=== PATIENT | female | born 1940 | race Caucasian/White ===

== ENCOUNTER 2020-05-30 21:04 | Inpatient (IN) | payer OTHER, SELFPAY ==
[~2020-05-30] VITALS: Ht 160 cm; Wt 54.9 kg
--- NOTE | 2020-05-30 21:05 | NUR ---
PT NOLA MONGE. TAKEN TO BED 12
[2020-05-30 21:06] VITALS: BP 108/50
[2020-05-30] MEDS ORDERED: EPOETIN ALFA 2,000 UNITS/ML VIAL SUBQ ONE (21:25)
--- NOTE | 2020-05-30 21:30 | NUR ---
PATIENT BIBA C/O "LOW HGB", PER PATIENT SHE C/O "DIZZINESS" AND "I CANT HAVE A BLOOD TRANSFUSION". SEE COMPLETE ASSESSMENT FOR FURTHER DETAILS. MED HX: STROKE, DM TYPE 2, CIRRHOSIS ALLERGIES: PENICILLINS
--- NOTE | 2020-05-30 21:45 | NUR ---
EKG PERFORMED AT BEDSIDE. EKG READS SINUS RHYTHM @ 61
[2020-05-30 22:00] LABS: BASOPHILS # (AUTO) 0.1 K/uL (0.00-0.22); EOSINOPHILS # (AUTO) 0.4 K/uL (0-0.4); EOSINOPHILS % (AUTO) 6.4 % (0.0-4.0); LYMPHOCYTES # (AUTO) 0.8 K/uL (2.5-16.5); LYMPHOCYTES % (AUTO) 14.6 % (20.5-51.1); MEAN CORPUSCULAR HEMOGLOBIN 29 pg (27-31); MEAN CORPUSCULAR HGB CONC 33 g/dL (33-37); MEAN CORPUSCULAR VOLUME 88.2 fL (80-94); MONOCYTES # (AUTO) 0.5 K/uL (0.8-1.0); MONOCYTES % (AUTO) 8.6 % (1.7-9.3); NEUTROPHILS # (AUTO) 3.8 K/uL (1.8-7.7); NEUTROPHILS % (AUTO) 69.4 % (42.2-75.2); PLATELET COUNT (AUTO) 256 K/uL (140-450); RED BLOOD CELL COUNT(AUTO) 2.19 MIL/uL (4.20-5.40); RED CELL DISTRIBUTION WIDTH 18.8 % (11.6-13.7); WHITE BLOOD COUNT (AUTO) 5.5 K/uL (4.8-10.8)
[2020-05-30 22:02] LABS: HEMOGLOBIN 6.3 g/dL (12.0-16.0)
[2020-05-30 22:03] LABS: HEMATOCRIT 19.3 % (36-48)
[2020-05-30 22:14] LABS: ANION GAP 10.8 (8-16); CARBON DIOXIDE 26.3 mmol/L (21-32); CHLORIDE 100 mmol/L (98-107); GLUCOSE 246 mg/dL (74-106); POTASSIUM 5.1 mmol/L (3.5-5.1); SODIUM SERUM 132 mmol/L (136-145)
[2020-05-30 22:21] LABS: CREATININE 4.8 mg/dL (0.6-1.3); UREA NITROGEN, BLOOD 100 mg/dL (7-18)
[2020-05-30] MEDS ORDERED: NACL 0.9% 1,000 ML IV ONE (22:25)
--- NOTE | 2020-05-30 22:31 | NUR ---
[place] tavares in [facility] - 05/30/20 at 2231 by ELBERT [facility] AT BEDSIDE
[2020-05-30] MEDS ORDERED: traMADol 50 MG TAB PO ONE (23:00)
--- NOTE | 2020-05-30 23:35 | NUR ---
PATIENT REMAINS LYING DOWN IN BED, COMFORTABLY, STATES "MY PAIN FEELS BETTER", BED LOCKED AND IN LOWEST POSITION, BED RAILS UP.
--- NOTE | 2020-05-31 00:13 | NUR ---
PERFORMED PERINEAL CARE FOR PATIENT, SKIN IS CLEAR AND DRY, NO NOTED WOUNDS. PATIENT REPOSITIONED FOR COMFORT.
[2020-05-31] MEDS ORDERED: INSU100S22 SUBQ (00:37)
[2020-05-31] MEDS ORDERED: CARV25TA PO (00:37)
[2020-05-31] MEDS ORDERED: AMLO5TAB PO (00:37)
[2020-05-31] MEDS ORDERED: GLIP5TER PO (00:37)
[2020-05-31] MEDS ORDERED: SYN.05 PO (00:37)
[2020-05-31] MEDS ORDERED: RIVA20TA PO (00:37)
[2020-05-31] MEDS ORDERED: ALEN70TA85 PO (00:37)
[2020-05-31] MEDS ORDERED: HYDR-3233 PO (00:37)
[2020-05-31] MEDS ORDERED: VITB12 PO (00:37)
[2020-05-31] MEDS ORDERED: MAGN400S60 PO (00:37)
[2020-05-31] MEDS ORDERED: ATOR40TA PO (00:37)
[2020-05-31] MEDS ORDERED: FURO-570 PO (00:37)
[2020-05-31] MEDS ORDERED: LORA10TA19 PO (00:37)
[2020-05-31] MEDS ORDERED: BISA-213 RC (00:37)
--- NOTE | 2020-05-31 01:06 | NUR ---
Patient will be admitted to care of MD MORA. Admited to TELEMETRY. Will go to room 120-A. Belongings list completed. Report to FRANCISCO SHEPPARD.
[2020-05-31 01:20] VITALS: BP 131/58
--- NOTE | 2020-05-31 01:20 | NUR ---
RECEIVED PATIENT FROM ER. PT BROUGHT IN [employer]IA [employer]. PT IS AAOX4. RESPIRATIONS ARE EQUAL AND UNLABORED ON ROOM AIR. LUNG SOUNDS ARE CLEAR. SKIN IS INTACT. C/C ABN LAB HGB 6.3 PT REFUSED BLOOD TRANSFUSION D/T GNOSTICISM PT IS JEHOVAH WITNESS. PT STATES HX BLOOD TRANSFUSION IN 1951 AND DX HEP C IN D/T BLOOD TRANSFUSION. HX CIRRHOSIS AND CKD. PT IS FROM [place] IN [facility]. IV ON LAC 20G INFUSING NS @ 100ML/H PER. VS: 131/58 HR 69 98% RA 97.9 RR 16. MRSA SWAB OBTAINED. ORIENTED PT TO ROOM, STAFF AND CALL LIGHT. POC DISCUSSED WITH PT. PT ON CLEAR LIQUID DIET. NO CONSULT MD WILL ASSESS PT IN PERSON THIS MORNING. PT VERBALIZED UNDERSTANDING. CALL LIGHT IS WITHIN REACH. WILL CONTINUE TO MONITOR.
[2020-05-31] MEDS: HYDROcodone/APAP 5/325 MG 1 TAB TAB PO PRN ×3 (01:34→20:26)
--- NOTE | 2020-05-31 01:34 | NUR ---
PRN NORCO GIVEN FOR HIP PAIN. PT TOLERATED WELL. ICE CHIPS AT BEDSIDE. CALL LIGHT IS WITHIN REACH
[2020-05-31] MEDS: NACL 0.9% 1,000 ML IV SCH ×2 (02:19→11:37)
[2020-05-31 04:00] VITALS: BP 145/53
--- NOTE | 2020-05-31 04:00 | NUR ---
VITAL SIGNS ARE WITHIN NORMAL LIMITS. ALL NEEDS MET. CALL LIGHT IS WITHIN REACH. WILL CONTINUE TO MONITOR.
--- NOTE | 2020-05-31 07:25 | NUR ---
GAVE BEDSIDE REPORT TO DAY RN. PT ENDORSED IN STABLE CONDITION.
--- NOTE | 2020-05-31 07:26 | NUR ---
RECEIVED REPORT FROM EDUCATIONAL ADVISER NURSE. PATIENT IN STABLE CONDITION. SAFETY MEASURES IN PLACE, CALL LIGHT WITHIN REACH. WILL CONTINUE TO MONITOR.
[2020-05-31 08:00] VITALS: BP 132/42
--- NOTE | 2020-05-31 08:36 | NUR ---
PATIENT HAS BEEN SCREENED AND CATEGORIZED MODERATE NUTRITION RISK. PATIENT WILL BE SEEN WITHIN 3-5 DAYS OF ADMISSION. 06/02/20 06/04/[address]
[2020-05-31] MEDS: PANTOPRAZOLE 40 MG INJ VIAL IVP SCH (09:05)
--- NOTE | 2020-05-31 09:06 | NUR ---
SCHEDULED MEDICATIONS DUE GIVEN. WILL CONTINUE TO MONITOR.
--- NOTE | 2020-05-31 11:02 | NUR ---
SOCIAL WORK NOTE: Patient's Orientation Unable To Assess Information Provided By KEE MONTES DE OCA/DEMETRIA LOPEZ - SON Comments SW WAS UNABLE TO MEET PATIENT AT BEDSIDE. SW LEFT FOR DEMETRIA LOPEZ. SW COMPLETED ASSESSMENT WITH PATIENT'S SON, KEE MONTES DE OCA. DEMETRIA CHILDERS RETURNED PHONE CALL AND SW VERIFIED INFORMATION. Oil Transport Driver, Realtionship and Phone Number DEMETRIA LOPEZ SON [phone] KEE MONTES DE OCA SON [phone] Healthcare Power of Client Leader No Does Patient Have a POLST No Identifying Problems No Social Work Triggers Is A Social Work Consult Needed No Mandate Report Filed No Explanation Of Identifying Problems PATIENT IS AN 79-YEAR-OLD FEMALE ADMITTED FOR ANEMIA. PATIENT HAS PMHX OF CEREBROVASCULAR ACCIDE, DIABETES, AND RENAL DISEASE. PER SON, PATIENT IS A SKILLED PATIENT AT [facility], BUT LIVES WITH HER SON DEMETRIA LOPEZ @ [address], [place], [id number]. Admitted From Home Prison Facility [facility] - [phone] Pre-Admission Level Of Functioning Status Independent With DME Level Of Functioning Comment AT BASELINE, SON STATED THAT PATIENT IS INDEPENDENT WITH ALL ADLS WITH USE OF WALKER. Prior Resources/Services Used In Last 12 Months SNF Rehab/Skilled Prior DME Walker Dialysis Comments N/A Living Situation Lives With Family House Patient Had Caregiver No Home Support No Caregiver Issues Financial Issues No Known Financial Issue Referral To The Financial Counselor Needed No Factors/Needs No D/C Needs Identified Pt/Rep Participated In Discharge Plan Yes Patient/Family Agress With Discharge Plan Yes Discharge Plan Comments TENTATIVE DISCHARGE PLAN IS FOR PATIENT [facility] DC Plan Status Initiated
--- NOTE | 2020-05-31 11:38 | NUR ---
PATIENT COMPLAINS OF GENERALIZED PAIN AFTER CHANGING PATIENT. NORCO GIVEN AT THIS TIME. WILL CONTINUE TO MONITOR.
[2020-05-31 12:00] VITALS: BP 145/61
[2020-05-31 16:00] VITALS: BP 165/67
--- NOTE | 2020-05-31 16:24 | NUR ---
SPOKE TO DR. MORA AND SAID THAT REPEAT CBC WAS ORDERED FOR THE PT AND IF THE HGB IS 8 AND ABOVE MAY BE DISCHARGED BACK TO [facility] BUT IF THE HGB IS BELOW 8 THEN WILL BE GIVEN ANOTHER DOSE OF EPOGEN, SILVER BOB WAS INFORMED.
[2020-05-31 16:56] LABS: BASOPHILS % (AUTO) 0.4 % (0.0-2.0); EOSINOPHILS # (AUTO) 0.3 K/uL (0-0.4); EOSINOPHILS % (AUTO) 6.4 % (0.0-4.0); HEMATOCRIT 21.5 % (36-48); LYMPHOCYTES # (AUTO) 0.5 K/uL (2.5-16.5); LYMPHOCYTES % (AUTO) 12.1 % (20.5-51.1); MEAN CORPUSCULAR HEMOGLOBIN 30 pg (27-31); MEAN CORPUSCULAR HGB CONC 32 g/dL (33-37); MEAN CORPUSCULAR VOLUME 94.1 fL (80-94); MONOCYTES # (AUTO) 0.4 K/uL (0.8-1.0); MONOCYTES % (AUTO) 8.6 % (1.7-9.3); NEUTROPHILS # (AUTO) 3.2 K/uL (1.8-7.7); NEUTROPHILS % (AUTO) 72.5 % (42.2-75.2); PLATELET COUNT (AUTO) 272 K/uL (140-450); RED BLOOD CELL COUNT(AUTO) 2.28 MIL/uL (4.20-5.40); RED CELL DISTRIBUTION WIDTH 18.8 % (11.6-13.7); WHITE BLOOD COUNT (AUTO) 4.5 K/uL (4.8-10.8)
[2020-05-31 17:05] LABS: HEMOGLOBIN 6.8 g/dL (12.0-16.0)
[2020-05-31 17:12] LABS: ANION GAP 12.5 (8-16); CARBON DIOXIDE 22.6 mmol/L (21-32); CHLORIDE 96 mmol/L (98-107); SODIUM SERUM 125 mmol/L (136-145)
--- NOTE | 2020-05-31 17:30 | NUR ---
GLUCOSE: 800 FROM BLOOD DRAW AND H&H 6.[address] JAIN WHO IS EDITOR [place] FOR DR. MORA. AWAITING FOR HIS CALL.
[2020-05-31 17:58] LABS: CREATININE 4.1 mg/dL (0.6-1.3); GLUCOSE 807 mg/dL (74-106); POTASSIUM 6.1 mmol/L (3.5-5.1); UREA NITROGEN, BLOOD 89 mg/dL (7-18)
--- NOTE | 2020-05-31 18:15 | NUR ---
DR. JAIN CALLED AND ORDERED RECEIVED. PER DR. JAIN, GIVE 15 UNITS HUMALOG AT THIS TIME AND CONTINUE HOME MEDICATION OF LANTUS 20 UNITS DAILY. WILL CONTINUE TO MONITOR.
[2020-05-31] MEDS ORDERED: DEXTROSE 50% 50 ML SYR IVP PRN (18:40)
[2020-05-31] MEDS ORDERED: MAGNESIUM HYDROXIDE 2400 MG/30 ML UDC PO SCH (18:40)
[2020-05-31] MEDS: INSULIN LISPRO SLIDING SCALE 100 UNITS/ML VIAL SUBQ PRN (18:59)
--- NOTE | 2020-05-31 19:40 | NUR ---
GAVE REPORT TO ACADEMIC AFFAIRS COORDINATOR NURSE FOR CONTINUITY OF CARE. PATIENT IN STABLE CONDITION.
[2020-05-31] MEDS ORDERED: SODIUM POLYSTYRENE 15 GM/60 ML UDBTL PR SCH (19:45)
[2020-05-31 20:00] VITALS: BP 135/93
--- NOTE | 2020-05-31 20:00 | NUR ---
RECEIVED PATIENT DURING ROUNDS EARLIER A/A/OX4, LAYING IN BED WATCHING TV. PATIENT VERBALIZED THAT HE HAS PAIN, STATED "EVERYWHERE". WILL MEDICATE ORDERED AND IF VS IS OK. OTHERWISE PT IS NOT IN ANY DISTRESS AND NO OTHER COMPLAIN. SINUS RHYTHM ON CITY SANITARIAN, HR-64. FALL PRECAUTION IMPLEMENTED. INSTRUCTED NOT TO GET OUT OF BED WITHOUT ASSISTANCE. PT VERBALIZED UNDERSTANDING WITH THE POC. CALL LIGHT WITHIN REACH. WILL CONTINUE POC AND MONITORING.
[2020-05-31] MEDS ORDERED: INSULIN LISPRO 100 UNITS/ML VIAL SUBQ SCH (20:10)
[2020-05-31] MEDS: BLOOD GLUCOSE MONITORING 1 DEV DEV FS SCH (20:25)
[2020-05-31] MEDS: carvediloL 12.5 MG TAB PO SCH (20:26)
[2020-05-31] MEDS ORDERED: NON-FORMULARY ITEM (Insulin Glargine,Hum.rec.anlog (Lantus Solostar) 20 UNIT) SUBQ SCH (21:00)
[2020-05-31] MEDS ORDERED: INSULIN LANTUS 100 UNITS/ML 10 ML VIAL SUBQ SCH ×2 (21:00)
[2020-05-31] MEDS: INSULIN LANTUS 100 UNITS/ML 10 ML VIAL SUBQ SCH (21:08)
--- NOTE | 2020-05-31 22:00 | NUR ---
ADMINISTERED SCHEDULED MEDICATIONS EARLIER ORDERED AND PT TOLERATED IT WELL. NO ADVERSE DRUG REACTIONS NOTED.
[2020-06-01] VITALS: BP 122/52
--- NOTE | 2020-06-01 | NUR ---
PATIENT VITALS SIGNS STABLE, SATING 97% ON RA. NO SIGN AND SYMPTOMS OF DISTRESS NOTED AND NO COMPLAIN AT THIS TIME. SR ON FAMILY INDEPENDENCE CASE MANAGER, HR-61.
--- NOTE | 2020-06-01 00:30 | NUR ---
PATIENT WAS REQUESTING FOR ORANGE JUICE AND STATED THAT SHE FEELS LIKE HER BLOOD SUGAR DROPPED DOWN. CHECKED THE PATIENT BLOOD SUGAR AND ITS 138. PT MADE AWARE THAT HER SUGAR HAS BEEN RUNNING HIGH 600 AND EDUCATED THAT THE ORANGE JUICE WILL MAKE IT HIGHER AGAIN. PT VERBALIZED UNDERSTANDING.
[2020-06-01] MEDS: NACL 0.9% 1,000 ML IV SCH ×2 (00:33→05:52)
--- NOTE | 2020-06-01 02:00 | NUR ---
PATIENT ASLEEP AT THIS TIME. NO SIGN AND SYMPTOMS OF DISTRESS NOTED AT THIS TIME. VISIBLE CHEST RISE AND FALL NOTED. SAFETY MEASURES IN PLACED.
[2020-06-01 04:00] VITALS: BP 179/71
--- NOTE | 2020-06-01 04:00 | NUR ---
PT BP HIGH 179/71, HR-70. PT DENIES ANY PAIN AT THIS TIME. WILL ENDORSE TO AM RN. PATIENT HAS 3 BP MEDS IN AM.
[2020-06-01] MEDS: LEVOTHYROXINE 0.05 MG TAB PO SCH (05:36)
[2020-06-01] MEDS: BLOOD GLUCOSE MONITORING 1 DEV DEV FS SCH ×4 (05:37→21:17)
[2020-06-01 05:42] LABS: BASOPHILS % (AUTO) 0.7 % (0.0-2.0); EOSINOPHILS # (AUTO) 0.5 K/uL (0-0.4); EOSINOPHILS % (AUTO) 9.2 % (0.0-4.0); LYMPHOCYTES # (AUTO) 0.9 K/uL (2.5-16.5); LYMPHOCYTES % (AUTO) 15.9 % (20.5-51.1); MEAN CORPUSCULAR HEMOGLOBIN 29 pg (27-31); MEAN CORPUSCULAR HGB CONC 33 g/dL (33-37); MEAN CORPUSCULAR VOLUME 88.4 fL (80-94); MONOCYTES # (AUTO) 0.5 K/uL (0.8-1.0); MONOCYTES % (AUTO) 9.9 % (1.7-9.3); NEUTROPHILS # (AUTO) 3.5 K/uL (1.8-7.7); NEUTROPHILS % (AUTO) 64.3 % (42.2-75.2); PLATELET COUNT (AUTO) 257 K/uL (140-450); RED BLOOD CELL COUNT(AUTO) 1.88 MIL/uL (4.20-5.40); RED CELL DISTRIBUTION WIDTH 18.3 % (11.6-13.7); WHITE BLOOD COUNT (AUTO) 5.4 K/uL (4.8-10.8)
[2020-06-01 06:01] LABS: ALBUMIN 2.2 g/dL (3.4-5.0); ANION GAP 11.7 (8-16); ASPARTATE AMINOTRANSFERASE 10 U/L (15-37); CARBON DIOXIDE 24.7 mmol/L (21-32); CHLORIDE 105 mmol/L (98-107); CREATININE 3.5 mg/dL (0.6-1.3); GLUCOSE 113 mg/dL (74-106); MAGNESIUM 3.1 mg/dL (1.8-2.4); POTASSIUM 4.4 mmol/L (3.5-5.1); SODIUM SERUM 137 mmol/L (136-145); TOTAL BILIRUBIN 0.1 mg/dL (0.0-1.0)
[2020-06-01 06:04] LABS: UREA NITROGEN, BLOOD 80 mg/dL (7-18)
--- NOTE | 2020-06-01 06:25 | NUR ---
PATIENT STABLE. NO ACUTE EVENT THROUGHOUT THE NIGHT. NO COMPLAIN AT THIS TIME. MEDICATED THE PT FOR PAIN EARLIER. ALL NEEDS ATTENDED. CALL LIGHT WITHIN REACH. WILL ENDORSE THE PT TO THE ONCOMING RN FOR CONTINUITY OF CARE.
[2020-06-01 06:31] LABS: HEMATOCRIT 16.6 % (36-48); HEMOGLOBIN 5.4 g/dL (12.0-16.0)
--- NOTE | 2020-06-01 06:36 | NUR ---
EFRAÍN FROM THE LAB CALLED REGARDING THE PT HGB- 5.4 AND HCT-16.[address] JAIN PRESS LOADER FOR DR MORA AND MADE AWARE OF THE CRITICAL RESULT. AWAITING FOR MD TO CALL OR TEXT BACK. WILL ENDORSE TO AM SILVER.
--- NOTE | 2020-06-01 07:20 | NUR ---
RECEIVED BEDSIDE REPORT FROM NIGHTSHIFT NURSE. PT RESTING IN BED. ABLE TO MAKE NEEDS KNOWN. RESPIRATIONS EVEN AND UNLABORED WITH NO SOB OR RESPIRATORY DISTRESS. SKIN WARM AND DRY TO TOUCH. IV SITE IN LAC 20G IS CLEAN, DRY, AND INTACT. SAFETY MEASURES IN PLACE. WILL CONTINUE TO MONITOR
[2020-06-01 08:00] VITALS: BP 148/99
[2020-06-01] MEDS ORDERED: LORATADINE 10 MG TAB PO SCH (09:00)
[2020-06-01] MEDS: hydrALAZINE 25 MG TAB PO SCH ×3 (09:07→17:09)
[2020-06-01] MEDS: PANTOPRAZOLE 40 MG INJ VIAL IVP SCH (09:07)
[2020-06-01] MEDS: carvediloL 12.5 MG TAB PO SCH ×2 (09:08→21:00)
[2020-06-01] MEDS: amLODIPine 5 MG TAB PO SCH (09:08)
--- NOTE | 2020-06-01 09:16 | NUR ---
ADMINISTERED SCHED MED PRESCRIBED PER MD ORDER. PT TOLERATED WELL. MEDICATION EDUCATION PERFORMED. PT VERBALIZED UNDERSTANDING. SAFETY MEASURES IN PLACE. WILL CONTINUE TO MONITOR
[2020-06-01] MEDS ORDERED: IRON SUCROSE COMPLEX 100 MG/5 ML VIAL IVP ONE (10:00)
--- NOTE | 2020-06-01 10:41 | NUR ---
DC PLANNIN YRS OLD FEMALE PATIENT WAS ADMITTED FROM [facility] WITH A DX OF ANEMIA. PT HAS A HX OF ANEMIA JEHOVAH WITNESS, DOES NOT WANT ANY BLOOD TRANSFUSION AND HEMORRHOIDS.H/HON ADMISSION 6.5/21.5. RECEIVED EPOGEN 2000 UNITS SUBQ. STARTED ON FERRLECIT IV AND PROCRIT AND CONTINUED HOME MEDS CONSULTED WITH GI DR LEONE. DC PLAN TO GO BACK TO [facility] WHEN STABLE. DISCUSSED THE IN PATIENT STATUS WITH DR MORA AND AGREED TO CHANGE IT TO INPATIENT STATUS. CM TO FOLLOW Addendum: 06/04/20 at 1605 by Amanda Montez RN DC PLANNING: PT'S H/H TODAY 5.5/16.7 PT IS JEHOVAH WITNESS ON FERRLECIT IV AND EPOGEN SUB Q ,SUPPLY CHAIN PROGRAM MANAGER SEEN PT HELD THE ANTICOAGULANT THERAPY. DISCUSSED WITH THE HIGH RISK OF HAVING LOW H/H BUT PT CONFIRMED THAT NOT TAKING ANY TRANSFUSION PT IS DNR/DNI. CM TO FOLLOW Addendum: 06/05/20 at 1026 by Amanda Montez RN DC PLANNING DR MEEK WAS DISCUSSING THE TREATMENT WITH PT'S SON NAME KAL Chandler [phone] EXPLAINING AND ANSWERING ALL THE QUESTIONS AND CONCERNS. DR MEEK DISCUSSED THE CODE STATUS WITH THE PATIENT AND CODE STATUS CHANGED TO DNR. CM TO FOLLOW Addendum: 06/05/20 at 1048 by Devora Davila CM DC EDITOR & CO FOUNDER: FAXED ORDER FOR EPOGEN THERAPY TO [facility]. WILL FOLLOW UP. Addendum: 06/06/20 at 1238 by Amanda Montez RN DC PLANNING: RECEIVED AN ORDER FOR [facility] EVAL CALLED [facility] SPOKE WITH CODY CASTILLO AT [phone] DISCUSSED THE TRANSFER PER CODY PT IS IN THE HOSPITAL FOR 4 DAYS ONLY SHE WILL DISCUSS IT WITH MEDICAL ADMINISTRATOR AND CALL BACK. Addendum: 06/07/20 at 1554 by Devora Davila CM JOSE LUIS LAWTONNER: PATIENT WILL DC BACK TO [facility] TODAY. FAXED CLINICALS WILL FOLLOW UP Addendum: 06/07/20 at 1607 by Devora Davila CM DC CAR: JONATHAN NICKERSON RECEIVED A PHONE CALL FROM PATIENTS SON KEE STATING THAT HE DOES NOT WANT HIS MOTHER RETURNING TO [facility]. SPOKE TO PAUL FROM [facility] SHE WAS ALREADY AWARE. SPOKE TO CODY SHE IS GOING TO CONTACT ME BACK TO SEE IF SHE HAS AN AVAILABLE BED AT [facility] Addendum: 06/07/20 at 1626 by Devora Davila CM JOSE LUIS YOON: CODY CAN ACCOMMODATE PATIENT AT [facility] HOWEVER SHE NEEDS AUTH FROM [facility]. TRIED CONTACTING JONATHAN CODY FROM [facility] [phone] BUT NO ANSWER Addendum: 06/07/20 at 1651 by Devora Davila CM JOSE LUIS YOON: RECEIVED A PHONE CALL FROM CODY AT [facility]. AFTER HER DON REVIEWED CLINICALS THEY ARE NOT ABLE TO ACCEPT PATIENT. Addendum: 06/08/20 at 1150 by Amanda Montez RN DC PLANNING: SPOKE WITH DR CHAWLA SOLID WASTE ANALYST REGARDING PT'S STATUS ,HE SAID HE SPOKE WITH THE PATIENT REGARDING WORSENING KIDNEY FUNCTION AND ASKED HER IF SHE WANTED DIALYSIS AND PT TOLD HIM "YES I WANT DIALYSIS" DR ORTA AND DR MEEK DISCUSSED PLAN OF CARE INCREASE EPOGEN TO 20,000 UNIT SUBQ EVERY WEEK AND IRON IV 200MG DAILY, AND WILL CHECK THE H/H TOMORROW. DR MEEK DISCUSSED THE HOSPICE WITH THE PATIENT, PT STATED WANTED TO TALK TO SON. I RECEIVED A CALL FROM SON KAL [phone] AND EXPLAIN 'S PLAN AND A DISCUSSION FOR HOSPICE , PER TRACI STATED LET'S SEE WITH THE EPOGEN AND IRON LEVEL OVER THE WEEKEND AND WILL DISCUSS IT WITH OTHER FAMILY AND BY THURSDAY WILL DECIDE FOR HOSPICE. IF PT AND FAMILY AGREED ON HOSPICE HE PREFERRED HER TO GO HOME WITH HOSPICE TO HIS BROTHER'S HOUSE AT [facility]. CM TO FOLLOW Addendum: 06/11/20 at 1243 by Amanda Montez RN DC PLANNING: CALLED PT'S SON KEE DISCUSSED THE DC PLAN AND TRANSFERRED THE CALL TO DR STRATTON, PER DR VIRAL SWEET STATED WANTED TO TAKE PATIENT TO OTHER HOSPITAL. PER HE WANTED TO DISCUSS WITH DR MANN IF IT IS SAFE TO DC PATIENT WITH EPOGEN SUB Q EVERY WEEK AND H/H IS 5.10/24 DR STRATTON WILL CALL BACK AFTER HE DISCUSS WITH DR MANN. CM TO FOLLOW Addendum: 06/11/20 at 1355 by Amanda oMntez RN DC PLANNING: RECEIVED A CALL FROM CODY MURRAY EXPLAINED THE SITUATION AND PER CODY WILL DISCUSS IT WITH HER MEDICAL ADMINISTRATOR AND DR KHAN WELL. CM TO FOLLOW. Addendum: 06/12/20 at 1114 by Devora Davila CM DC EDITOR & CO FOUNDER: SPOKE TO JONATHAN MON AT [phone] REGARDING EPOGEN THERAPY. SHE STATED THAT SHE HAS TO CHECK FIRST TO SEE IF THEY ARE DELEGATED TO PROVIDE AUTH. SHE ALSO WILL HAVE TO GET AUTH FROM HER MEDICAL ADMINISTRATOR. IF THEY ARE DELEGATED SHE WILL FAX OVER A COPY OF THE AUTH. Addendum: 06/12/20 at 1408 by Amanda Montez RN DC PLANNING: DR KHAN, PT'S SON KEE AND A FAMILY FRIEND FROM THE [employer] W[employer]NESS NAME LINO MCMANUSANTES HAD A LONG DISCUSSION REGARDING PT CARE AND DC EDITOR & CO FOUNDER DR KHAN EXPLAINED AND ANSWERED ALL THE CONCERNS AND ISSUES OF PT'S CLINICAL STAND POINT. PER LINO HE HAS SOME HOSPICE WHO CAN PROVIDE EPOGEN SUB Q AND WILL CALL WITH THE HOSPICE NUMBER. PER SON KEE SPOKE WITH NEPHROLOGY DR CHAWLA ORDERED 24 HR URINE AND WILL CHECK THE KIDNEY FUNCTION . PER CHANTAL WILL SEE THE SOLID WASTE ANALYST RECOMMENDATION AND ALSO DISCUSS WITH THE REST OF THE FAMILY AND WILL DECIDE. JONATHAN TO FOLLOW Addendum: 06/12/20 at 1431 by Devora Davila CM DC EDITOR & CO FOUNDER: RECEIVED A PHONE CALL FROM JONATHAN MON HER MEDICAL ADMINISTRATOR APPROVED THE EPOGEN THERAPY, HOWEVER THEY NEED AN ORDER WITH THE DOSAGE AND FOR HOW LONG Addendum: 06/13/20 at 1136 by Dveora Davila CM DC EDITOR & CO FOUNDER: FAXED NEW ORDER FOR EPOGEN TO [facility]. WILL FOLLOW UP Addendum: 06/14/20 at 1027 by Amanda Montez RN DC PLANNING: CALLED PT'S SON KEE [phone] DISCUSSED THE DC PLAN AND TODAY'S H/H IS STABLE TO GO TO SNF OR HOME WITH EPOGEN INJECTION 2 X A WEEK. PER KEE HE DOESN'T WANT HOSPICE FOR HIS MOM AND IF THERE IS NEW FACILITY TO ACCEPT HER OK TO BE DISCHARGED TO ANY CLOSER FACILITY. SPOKE WITH CODY AT [facility] UPDATED PT'S CLINICAL AND REQUESTED TO HAVE A PHYSICAL THERAPY EVALUATION AND PT CAN GO TO SNF FOR SKILLS. FAXED TO [facility] . CALLED [facility] SPOKE WITH [facility] AND [facility] IS REQUESTING AUTHORIZATION. NOTIFIED DR KHAN . DC PLAN AWAITING FOR PT EVAL AND POSSIBLE DC TO [facility]. CM TO FOLLOW Addendum: 06/14/20 at 1223 by Devora Davila CM DC EDITOR & CO FOUNDER: JONATHAN SPOKE TO PATIENTS SON KEE REGARDING PLANS OF DC TODAY. FAMILY IS AGREEABLE TO PATIENT GOING TO [facility]. FAXED PACKET TO [facility], PER RITCHIE THEY ARE ABLE TO ACCEPT PATIENT ROOM [address]-B UNDER DR[address] SEWELL. Addendum: 06/14/20 at 1005 by Devora Davila CM DC EDITOR & CO FOUNDER: SPOKE TO SON KEE TO NOTIFY HIM THAT [facility] IS ABLE TO ACCEPT AND PLAN OF DC IS FOR TODAY. HE IS AGREEABLE. Addendum: 06/14/20 at 1210 by Devora Davila CM JOSE LUIS YOON: PATIENT WILL GO TO ROOM 46-[address] UNDER DR[address] SEWELL. SPOKE TO JONATHAN ROSS AT [facility] SHE PROVIDED AUTH FOR TRANSPORTATION [id number] AND AUTH FOR SNF [id number]. SHE ALSO PROVIDED AUTH FOR NEPHRO FOLLOW UP WITH GEOVANNA LALA AUTH [id number]. CALLED OFFICE TO SCHEDULE APPOINTMENT THEY NEED HARD COPY OF AUTH FIRST BEFORE THEY ARE ABLE TO SCHEDULE Addendum: 06/14/20 at 1251 by Devora Davila CM JOSE LUIS YOON ARRANGED TRANSPORTATION WITH [employer] [phone] CASING FINISHER AND STUFFER TIME IS 3:00 PM. NOTIFIED SILVER RASHID AND CONTACTED PATIENTS JADEN AVILES.
[2020-06-01] MEDS: MORPHINE SULFATE 2 MG/ML SYR IVP PRN (10:45)
--- NOTE | 2020-06-01 10:45 | NUR ---
PT COMPLAINED OF SEVERE PAIN. PRN PAIN MEDICATION ADMINISTERED PRESCRIBED PER MD ORDER. PT TOLERATED WELL. MEDICATION EDUCATION PERFORMED. PT VERBALIZED UNDERSTANDING. SAFETY MEASURES IN PLACE. WILL CONTINUE TO MONITOR
[2020-06-01] MEDS ORDERED: EPOETIN ALFA 2,000 UNITS/ML VIAL IV SCH (11:00)
--- NOTE | 2020-06-01 11:30 | NUR ---
PT BLOOG SUGAR IS 361. PRN INSULIN TO BE ADMINISTERED PRESCRIBED PER MD ORDER. PT TOLERATED WELL. WILL CONTINUE TO MONITOR
[2020-06-01 12:00] VITALS: BP 107/73
[2020-06-01] MEDS ORDERED: IRON SUCROSE COMPLEX 200 MG in NACL 0.9% 100 ML IV SCH (12:00)
[2020-06-01] MEDS: INSULIN LISPRO SLIDING SCALE 100 UNITS/ML VIAL SUBQ PRN (12:19)
--- NOTE | 2020-06-01 13:24 | NUR ---
ADMINISTERED SCHED MED PRESCRIBED PER MD ORDER. PT TOLERATED WELL. MEDICATION EDUCATION PERFORMED. PT VERBALIZED UNDERSTANDING. SAFETY MEASURES IN PLACE. WILL CONTINUE TO MONITOR
[2020-06-01] MEDS ORDERED: fentaNYL citrate 0.05 MG/ML VIAL ONE (15:41)
[2020-06-01] MEDS ORDERED: diphenhydrAMINE 50 MG/ML VIAL ONE (15:42)
[2020-06-01] MEDS ORDERED: MIDAZOLAM 5 MG/5 ML VIAL ONE (15:42)
--- NOTE | 2020-06-01 15:45 | NUR ---
PT OFF TO OR FOR EGD. REPORT GIVEN AT BEDSIDE. WILL CONTINUE TO MONITOR
[2020-06-01 16:00] VITALS: BP 126/90
[2020-06-01] MEDS: BENZOCAINE 20% 57 GM CAN MC ONE ×2 (16:02→16:55)
--- NOTE | 2020-06-01 16:15 | NUR ---
PT RETURNED BACK FROM OR. PT STABLE. SAFETY MEASURES IN PLACE. WILL CONTINUE TO MONITOR
--- NOTE | 2020-06-01 16:30 | NUR ---
PT BLOOD SUGAR IS 84. NO INSULIN NEEDED AT THIS TIME. WILL CONTINUE TO MONITOR
[2020-06-01] MEDS ORDERED: fentaNYL citrate 0.05 MG/ML VIAL IVP ONE (16:50)
[2020-06-01] MEDS ORDERED: MIDAZOLAM 2 MG/2 ML VIAL IVP ONE (16:50)
[2020-06-01] MEDS ORDERED: PANTOPRAZOLE 40 MG INJ VIAL IVP SCH ×2 (16:52→21:00)
[2020-06-01] MEDS ORDERED: BENZOCAINE 20% 57 GM CAN MC ONE (16:55)
[2020-06-01] MEDS: SENNA 8.6 MG TAB PO SCH (17:03)
[2020-06-01] MEDS: ERYTHROMYCIN 250 MG TABEC PO SCH (17:03)
[2020-06-01] MEDS: SUCRALFATE 1 GM TAB PO SCH ×2 (17:03→21:17)
[2020-06-01] MEDS: POLYETHYLENE GLYCOL 17 GM/PKT PO SCH (17:11)
[2020-06-01] MEDS: LACTULOSE 20 GM/30 ML UDC PO SCH ×2 (17:12→21:18)
--- NOTE | 2020-06-01 17:15 | NUR ---
ADMINISTERED SCHED MED PRESCRIBED PER MD ORDER. PT TOLERATED WELL. MEDICATION EDUCATION PERFORMED. PT VERBALIZED UNDERSTANDING. SAFETY MEASURES IN PLACE. WILL CONTINUE TO MONITOR
--- NOTE | 2020-06-01 18:20 | NUR ---
PT RESTING IN BED TALKING ON THE PHONE WITH FAMILY. ABLE TO MAKE NEEDS KNOWN. RESPIRATIONS EVEN AND UNLABORED WITH NO SOB OR RESPIRATORY DISTRESS. SKIN WARM AND DRY TO TOUCH. SAFETY MEASURES IN PLACE. WILL CONTINUE TO MONITOR
--- NOTE | 2020-06-01 19:35 | NUR ---
ENDORSED AT BEDSIDE TO NIGHTSHIFT NURSE FOR CONTINUITY OF CARE. PT IS STABLE
[2020-06-01 20:00] VITALS: BP 97/52
[2020-06-01] MEDS: INSULIN LANTUS 100 UNITS/ML 10 ML VIAL SUBQ SCH (21:00)
--- NOTE | 2020-06-01 21:30 | NUR ---
COREG TAB . NOT GIVEN DUE TO LOW DIASTOLIC BP . NO COMPLAIN MADE . RESTING ON BED COMFORTABLY . WILL CONT. TO MONITOR .
[2020-06-02] VITALS: BP 90/60
--- NOTE | 2020-06-02 | NUR ---
MADE ROUNDS , NO S/X OF ACUTE DISTRESS NOTED .
--- NOTE | 2020-06-02 02:00 | NUR ---
SLEEPING - PT ON TELE MONITOR - SR . BED ALARM ON . WILL CONT. TO MONITOR
[2020-06-02 04:00] VITALS: BP 95/60
--- NOTE | 2020-06-02 04:00 | NUR ---
MADE ROUNDS , NO S/SX OF ACUTE DISTRESS NOTED AT THIS TIME . WILL CONT. TO MONITOR .
[2020-06-02] MEDS: BLOOD GLUCOSE MONITORING 1 DEV DEV FS SCH ×4 (05:52→20:25)
--- NOTE | 2020-06-02 06:00 | NUR ---
NO COMPLAIN MADE .
[2020-06-02] MEDS: LEVOTHYROXINE 0.05 MG TAB PO SCH (06:58)
--- NOTE | 2020-06-02 07:24 | NUR ---
ENDORSED- PT - STABLE .
--- NOTE | 2020-06-02 07:26 | NUR ---
RECEIVED REPORT FROM NIGHT NURSE PT IS SLEEPING ON NPO EXCEPTS MEDICATIONS, SKIN INTACT, INCONTINENT LATEST BLOOD SUGAR 203 MG/DL, S/P EGD 06/01/20, PT IS JEHOVA AND REFUSED BLOOD TRANSFUSION, FOR COLONOSCOPY TODAY WITH CONSENT, CHEST XRAY NEGATIVE, ABDOMINAL XRAY NEGATIVE. SAFETY MEASURES IN PLACE AND CALL LIGHT WITHIN REACH. WILL CONTINUE TO MONITOR.
[2020-06-02 08:00] VITALS: BP 138/52
[2020-06-02] MEDS ORDERED: PANTOPRAZOLE 40 MG INJ VIAL IVP SCH (09:00)
[2020-06-02] MEDS: hydrALAZINE 25 MG TAB PO SCH ×3 (09:00→17:18)
[2020-06-02] MEDS: SUCRALFATE 1 GM TAB PO SCH ×4 (09:15→20:32)
[2020-06-02] MEDS: amLODIPine 5 MG TAB PO SCH (09:15)
[2020-06-02] MEDS: POLYETHYLENE GLYCOL 17 GM/PKT PO SCH (09:16)
[2020-06-02] MEDS: carvediloL 12.5 MG TAB PO SCH ×2 (09:16→20:32)
[2020-06-02] MEDS: ERYTHROMYCIN 250 MG TABEC PO SCH (09:16)
[2020-06-02] MEDS: SENNA 8.6 MG TAB PO SCH (09:16)
[2020-06-02] MEDS: LACTULOSE 20 GM/30 ML UDC PO SCH (09:25)
--- NOTE | 2020-06-02 09:40 | NUR ---
SCHEDULED MEDICATION GIVEN CHECK VITAL SIGNS BP 138/52 DC 75 PATIENT IS AWAKE AND ABLE TO SWALLOW MEDICATION. WILL CONTINUE TO MONITOR
[2020-06-02] MEDS ORDERED: MIDAZOLAM 5 MG/5 ML VIAL ONE ×2 (10:29→10:30)
[2020-06-02] MEDS ORDERED: diphenhydrAMINE 50 MG/ML VIAL ONE (10:29)
[2020-06-02] MEDS ORDERED: fentaNYL citrate 0.05 MG/ML VIAL ONE (10:29)
--- NOTE | 2020-06-02 11:00 | NUR ---
PATIENT OUT OF HER ROOM FOR COLONOSCOPY UNDER DR LEONE.
[2020-06-02 12:00] VITALS: BP 120/53
[2020-06-02] MEDS ORDERED: fentaNYL citrate 0.05 MG/ML VIAL IVP ONE (12:15)
[2020-06-02] MEDS ORDERED: MIDAZOLAM 2 MG/2 ML VIAL IVP ONE (12:15)
--- NOTE | 2020-06-02 12:30 | NUR ---
PATIENT BACK IN HER ROOM, S.P COLONOSCOPY WITH 2 POLYPS AND CHECK VITAL SIGNS BP 120/53 DE 68 RR 20 TEMP 98.9 OXYGEN SAT 98% NO DISTRESS NOTED AND PT STARTED ON CCHO 60 GRAMS DIET.
--- NOTE | 2020-06-02 12:40 | NUR ---
BLOOD SUGAR 218 MG/DL INSULIN COVERAGE GIVEN.
[2020-06-02] MEDS: INSULIN LISPRO SLIDING SCALE 100 UNITS/ML VIAL SUBQ PRN ×3 (12:49→20:30)
[2020-06-02 13:35] LABS: BASOPHILS % (AUTO) 0.4 % (0.0-2.0); EOSINOPHILS # (AUTO) 0.3 K/uL (0-0.4); EOSINOPHILS % (AUTO) 4.2 % (0.0-4.0); HEMATOCRIT 21.1 % (36-48); LYMPHOCYTES # (AUTO) 0.7 K/uL (2.5-16.5); LYMPHOCYTES % (AUTO) 9.9 % (20.5-51.1); MEAN CORPUSCULAR HEMOGLOBIN 29 pg (27-31); MEAN CORPUSCULAR HGB CONC 31 g/dL (33-37); MEAN CORPUSCULAR VOLUME 91.6 fL (80-94); MONOCYTES # (AUTO) 0.4 K/uL (0.8-1.0); MONOCYTES % (AUTO) 6.2 % (1.7-9.3); NEUTROPHILS # (AUTO) 5.7 K/uL (1.8-7.7); NEUTROPHILS % (AUTO) 79.3 % (42.2-75.2); PLATELET COUNT (AUTO) 253 K/uL (140-450); RED BLOOD CELL COUNT(AUTO) 2.31 MIL/uL (4.20-5.40); RED CELL DISTRIBUTION WIDTH 18.7 % (11.6-13.7); WHITE BLOOD COUNT (AUTO) 7.2 K/uL (4.8-10.8)
[2020-06-02 13:47] LABS: HEMOGLOBIN 6.6 g/dL (12.0-16.0)
[2020-06-02 14:05] LABS: ANION GAP 15.1 (8-16); CARBON DIOXIDE 20.8 mmol/L (21-32); CHLORIDE 109 mmol/L (98-107); CREATININE 2.8 mg/dL (0.6-1.3); GLUCOSE 272 mg/dL (74-106); POTASSIUM 3.9 mmol/L (3.5-5.1); SODIUM SERUM 141 mmol/L (136-145); UREA NITROGEN, BLOOD 46 mg/dL (7-18)
[2020-06-02 16:00] VITALS: BP 134/51
[2020-06-02] MEDS ORDERED: IRON SUCROSE COMPLEX 100 MG/5 ML VIAL IVP SCH (16:05)
--- NOTE | 2020-06-02 16:12 | NUR ---
BLOOD SUGAR 231 MG/DL GAVE INSULIN 4UNITS.
--- NOTE | 2020-06-02 17:00 | NUR ---
MEDICATION DUE GIVEN CHECK VITAL SIGNS BP 134/51 PA 76 ABLE TO TOLERATE WELL.
[2020-06-02] MEDS: FERROUS GLUCONATE 324 MG TAB PO SCH (17:18)
--- NOTE | 2020-06-02 19:20 | NUR ---
RECEIVED BEDSIDE REPORT FROM DAY SHIFT NURSE FOR CONTINUITY OF CARE. PT IS AWAKE AND ALERT, A&OX4. ON RA WITH BREATHING UNLABORED. SR ON TELE MONITORING. PT IS AMBULATORY WITH STANDBY ASSISTANCE, FALL RISK PRECAUTIONS IN PLACE. SKIN IS WARM, DRY, AND INTACT. IV IS IN THE LEFT FOREARM 22 GAUGE SALINE LOCKED. PT IS STABLE AT THIS TIME. PLAN OF CARE DISCUSSED. STANDARD PRECAUTIONS IN PLACE.
--- NOTE | 2020-06-02 19:26 | NUR ---
ENDORSED TO NIGHT NURSE FOR CONTINUITY OF CARE. PT IS STABLE.
[2020-06-02 20:00] VITALS: BP 173/71
[2020-06-02] MEDS: INSULIN LANTUS 100 UNITS/ML 10 ML VIAL SUBQ SCH (20:29)
--- NOTE | 2020-06-02 21:15 | NUR ---
PT IS AWAKE AND ALERT. LAYING IN SEMI FOWLERS POSITION. PT WAS GIVEN PUDDING, WATER, ICE, AND BLANKETS REQUESTED. ALL QUESTIONS WERE ANSWERED REGARDING CARE. PT IS STABLE AT THIS TIME. LAYING IN BED WATCHING TV. CALL LIGHT IS WITHIN REACH AND BED ALARM IS ON.
--- NOTE | 2020-06-02 23:20 | NUR ---
PT WAS REPOSITIONED IN BED. SHE IS SPEAKING APPROPRIATELY. A&OX4. NO RESPIRATORY DISTRESS NOTED. PT DENIES PAIN. TV IS TURNED ON REQUESTED. BED IS IN THE LOWEST POSITION AND CALL LIGHT IS WITHIN REACH. WILL CONTINUE TO MONITOR.
[2020-06-03] VITALS: BP 122/84
--- NOTE | 2020-06-03 01:11 | NUR ---
PT IS ASLEEP IN SEMI FOWLERS POSITION. NO SOB OR PAIN NOTED. BREATHING IS UNLABORED ON RA. BEDSIDE TABLE WITHIN REACH. CALL LIGHT WITHIN REACH. BED ALARM ON. DIAPER IS DRY AND INTACT. WILL CONTINUE TO MONITOR.
--- NOTE | 2020-06-03 03:10 | NUR ---
MADE ROUNDS ON PT. SHE IS SLEEPING IN SEMI FOWLERS POSITION. BLANKETS ARE IN PLACE. CHEST RISE AND FALL IS SYMMETRICAL. PT DOES NOT APPEAR TO BE IN ANY DISTRESS. CALL LIGHT IS WITHIN REACH. PT IS STABLE.
[2020-06-03 04:00] VITALS: BP 160/56
--- NOTE | 2020-06-03 05:15 | NUR ---
PT WAS CHANGED SHE VOIDED IN HER DIAPER. CLEAR, YELLOW URINE WAS PRESENT. PT DID NOT HAVE A BM. LINENS WERE CHANGED WELL. IV IS PATENT AND FLUSHING. PT WAS GIVEN ICE AND WATER REQUESTED.
[2020-06-03] MEDS: LEVOTHYROXINE 0.05 MG TAB PO SCH (05:31)
[2020-06-03] MEDS: BLOOD GLUCOSE MONITORING 1 DEV DEV FS SCH ×4 (05:34→20:03)
[2020-06-03] MEDS: INSULIN LISPRO SLIDING SCALE 100 UNITS/ML VIAL SUBQ PRN ×3 (05:34→17:12)
--- NOTE | 2020-06-03 07:13 | NUR ---
ENDORSED PT TO DAY SHIFT NURSE FOR CONTINUITY OF CARE. PT IS SLEEPING AND STABLE AT THIS TIME. PLAN OF CARE DISCUSSED.
--- NOTE | 2020-06-03 07:14 | NUR ---
RECEIVED TRANSFER OF CARE REPORT FROM SECTION LEADER RN FOR CONTINUATION OF CARE.
--- NOTE | 2020-06-03 07:15 | NUR ---
PT FOUND ASLEEP RESTING IN BED. PT HAS VISIBLE RISE AND FALL UPON RESPIRATION. NO DISTRESS NOTED. BED LOCKED IN LOWEST POSITION WITH 2 SIDE RAILS UP FOR SAFETY AND CALL LIGHT WITHIN REACH.
[2020-06-03 08:00] VITALS: BP 157/48
[2020-06-03] MEDS: hydrALAZINE 25 MG TAB PO SCH ×3 (09:20→16:59)
[2020-06-03] MEDS: SUCRALFATE 1 GM TAB PO SCH ×4 (09:20→20:05)
[2020-06-03] MEDS: amLODIPine 5 MG TAB PO SCH (09:21)
[2020-06-03] MEDS: carvediloL 12.5 MG TAB PO SCH ×2 (09:21→20:04)
[2020-06-03] MEDS: FERROUS GLUCONATE 324 MG TAB PO SCH ×2 (09:24→16:58)
[2020-06-03] MEDS: LACTULOSE 20 GM/30 ML UDC PO SCH (09:33)
--- NOTE | 2020-06-03 10:53 | NUR ---
PT FOUND AWAKE IN SEMI-DOTY'S POSITION IN BED. PT STATES 10/10 PAIN TO HIP AND LEGS. PRN PAIN MED ADMINISTERED. PT DENIES OTHER MEDICAL COMPLAINTS. BED LOCKED IN LOWEST POSITION WITH 2 SIDE RAILS UP FOR SAFETY AND CALL LIGHT WITHIN REACH.
[2020-06-03] MEDS: MORPHINE SULFATE 2 MG/ML SYR IVP PRN ×2 (10:59→18:03)
[2020-06-03 12:00] VITALS: BP 150/58
--- NOTE | 2020-06-03 13:03 | NUR ---
PT FOUND AWAKE RESTING IN BED. PT IS CURRENTLY EATING PRESCRIBED MEAL. PT DENIES PAIN AND DENIES OTHER MEDICAL COMPLAINTS. BED LOCKED IN LOWEST POSITION WITH 2 SIDE RAILS UP FOR SAFETY AND CALL LIGHT WITHIN REACH.
--- NOTE | 2020-06-03 14:56 | NUR ---
PT FOUND AWAKE RESTING ON RIGHT SIDE OF BED. PT HAS SOFT BROWN BOWEL MOVEMENT. PT PERINEAL AREA CLEANED. PT TOLERATED PERINEAL CLEANING WELL. PT DENIES PAIN AND DENIES OTHER MEDICAL COMPLAINTS. BED LOCKED IN LOWEST POSITION WITH 2 SIDE RAILS UP FOR SAFETY AND CALL LIGHT WITHIN REACH.
[2020-06-03 16:00] VITALS: BP 137/53
[2020-06-03 16:06] LABS: BASOPHILS # (AUTO) 0.1 K/uL (0.00-0.22); BASOPHILS % (AUTO) 0.7 % (0.0-2.0); EOSINOPHILS # (AUTO) 0.3 K/uL (0-0.4); EOSINOPHILS % (AUTO) 3.9 % (0.0-4.0); LYMPHOCYTES % (AUTO) 14.4 % (20.5-51.1); MEAN CORPUSCULAR HEMOGLOBIN 29 pg (27-31); MEAN CORPUSCULAR HGB CONC 32 g/dL (33-37); MEAN CORPUSCULAR VOLUME 90.7 fL (80-94); MONOCYTES # (AUTO) 0.5 K/uL (0.8-1.0); MONOCYTES % (AUTO) 7.6 % (1.7-9.3); NEUTROPHILS # (AUTO) 5.2 K/uL (1.8-7.7); NEUTROPHILS % (AUTO) 73.4 % (42.2-75.2); PLATELET COUNT (AUTO) 252 K/uL (140-450); RED BLOOD CELL COUNT(AUTO) 2.01 MIL/uL (4.20-5.40); RED CELL DISTRIBUTION WIDTH 18.9 % (11.6-13.7); WHITE BLOOD COUNT (AUTO) 7.1 K/uL (4.8-10.8)
[2020-06-03 16:14] LABS: ANION GAP 13.4 (8-16); CARBON DIOXIDE 22.7 mmol/L (21-32); CHLORIDE 106 mmol/L (98-107); CREATININE 2.8 mg/dL (0.6-1.3); GLUCOSE 237 mg/dL (74-106); POTASSIUM 4.1 mmol/L (3.5-5.1); SODIUM SERUM 138 mmol/L (136-145); UREA NITROGEN, BLOOD 38 mg/dL (7-18)
[2020-06-03 16:40] LABS: HEMATOCRIT 18.2 % (36-48); HEMOGLOBIN 5.9 g/dL (12.0-16.0)
--- NOTE | 2020-06-03 17:10 | NUR ---
CRITICAL LAB HGB 5.9 AND HCT 18.[address] HAMILTON. PER DR HAMILTON, TO ADMINISTER 2000 UNITS EPOGEN AND 200 IV IRON SUCROSE.
[2020-06-03] MEDS ORDERED: EPOETIN ALFA 2,000 UNITS/ML VIAL IV SCH (17:20)
[2020-06-03] MEDS ORDERED: IRON SUCROSE COMPLEX 100 MG/5 ML VIAL IVP SCH (17:20)
--- NOTE | 2020-06-03 17:55 | NUR ---
PT FOUND AWAKE LYING IN BED. PT STATES 10/10 HIP AND LEG PAIN. PRN PAIN MED ADMINISTERED. PT DENIES OTHER MEDICAL COMPLAINTS. BED LOCKED IN LOWEST POSITION WITH 2 SIDE RAILS UP FOR SAFETY AND CALL LIGHT WITHIN REACH.
--- NOTE | 2020-06-03 18:40 | NUR ---
PT TAKEN TO CT VIA RKYLE.
--- NOTE | 2020-06-03 18:50 | NUR ---
PT RETURN BACK TO ROOM FROM CT VIA [facility].
--- NOTE | 2020-06-03 19:20 | NUR ---
RECEIVED BEDSIDE REPORT FROM DAY SHIFT NURSE FOR CONTINUITY OF CARE. PT IS STABLE AT THIS TIME. AWAKE AND ALERT, A&OX4. ON RA WITH BREATHING UNLABORED. SR ON TELE MONITORING. PT IS INCONTINENT WITH DRY DIAPER IN PLACE. SKIN IS WARM, DRY AND INTACT. IV IS IN THE LEFT FOREARM 22 GAUGE SALINE LOCKED. PT IS STABLE. PLAN OF CARE DISCUSSED. STANDARD AND FALL PRECAUTIONS IN PLACE.
--- NOTE | 2020-06-03 19:24 | NUR ---
TRANSFER OF CARE REPORT PROVIDED TO NIGHT RN.
[2020-06-03 20:00] VITALS: BP 160/63
[2020-06-03] MEDS: INSULIN LANTUS 100 UNITS/ML 10 ML VIAL SUBQ SCH (20:06)
--- NOTE | 2020-06-03 21:30 | NUR ---
PT USES CALL LIGHT AND REQUESTS TO BE CHANGED. PT VERBALIZES NEEDS APPROPRIATELY. ALERT AND AWAKE. PT IS CHANGED AND NEW DIAPER IS PLACED. NO DISTRESS NOTED.
--- NOTE | 2020-06-03 23:35 | NUR ---
ROUNDED ON PT. SHE IS SLEEPING. CHEST RISE AND FALL IS SYMMETRICAL. PT IS ON RA WITH BREATHING UNLABORED. DIAPER IS DRY AND IN PLACE. IV IS PATENT AND INTACT. BED ALARM IS ON AND CALL LIGHT IS WITHIN REACH.
[2020-06-04] VITALS: BP 147/59
--- NOTE | 2020-06-04 01:20 | NUR ---
PT REQUESTS ICE CHIPS AND WATER. SHE WAS GIVEN THESE ITEMS AND SHE IS POSITIONED IN SEMI FOWLERS. PT STATES DIAPER DOES NOT NEED TO BE CHANGED. PT IS STABLE NEEDS HAVE BEEN MET.
--- NOTE | 2020-06-04 03:30 | NUR ---
IV IS ALARMING AND IT WAS TURNED OFF THE PT IS SALINE LOCKED. PT AWOKEN EASILY BY NOISE. SPEAKING APPROPRIATELY, A&OX4. PT IS BACK TO SLEEP. BREATHING IS REGULAR AND UNLABORED. WILL CONTINUE TO MONITOR.
[2020-06-04 04:00] VITALS: BP 115/47
[2020-06-04 05:26] LABS: ANTI-NUCLEAR ANTIBODY,DIRECT Negative (Negative); FERRITIN 32 ng/mL (15-150)
--- NOTE | 2020-06-04 05:30 | NUR ---
PT WAS CHANGED REQUESTED. PT VOIDED IN DIAPER; CLEAR, YELLOW URINE. PT TOLERATED MOVEMENT WELL. BLANKETS ARE IN PLACE AND BED ALARM IS ON. PT IS STABLE.
[2020-06-04] MEDS: BLOOD GLUCOSE MONITORING 1 DEV DEV FS SCH ×4 (05:43→21:00)
[2020-06-04] MEDS: LEVOTHYROXINE 0.05 MG TAB PO SCH (05:43)
--- NOTE | 2020-06-04 05:43 | NUR ---
PT'S BS READING WAS 74. PT WAS GIVEN ORANGE JUICE AND CHOCOLATE PUDDING. PT FINISHED BOTH ITEMS. SHE IS BACK TO SLEEP IN SEMI FOWLERS POSITION.
[2020-06-04 05:48] LABS: CARBON DIOXIDE 22.9 mmol/L (21-32); CHLORIDE 110 mmol/L (98-107); CREATININE 2.6 mg/dL (0.6-1.3); GLUCOSE 88 mg/dL (74-106); POTASSIUM 3.9 mmol/L (3.5-5.1); SODIUM SERUM 140 mmol/L (136-145); UREA NITROGEN, BLOOD 34 mg/dL (7-18)
[2020-06-04 06:29] LABS: BASOPHILS % (AUTO) 0.5 % (0.0-2.0); EOSINOPHILS # (AUTO) 0.3 K/uL (0-0.4); EOSINOPHILS % (AUTO) 3.3 % (0.0-4.0); LYMPHOCYTES # (AUTO) 1.1 K/uL (2.5-16.5); LYMPHOCYTES % (AUTO) 12.3 % (20.5-51.1); MEAN CORPUSCULAR HEMOGLOBIN 29 pg (27-31); MEAN CORPUSCULAR HGB CONC 33 g/dL (33-37); MEAN CORPUSCULAR VOLUME 89.7 fL (80-94); MONOCYTES # (AUTO) 0.8 K/uL (0.8-1.0); MONOCYTES % (AUTO) 9.5 % (1.7-9.3); NEUTROPHILS # (AUTO) 6.4 K/uL (1.8-7.7); NEUTROPHILS % (AUTO) 74.4 % (42.2-75.2); PLATELET COUNT (AUTO) 218 K/uL (140-450); RED BLOOD CELL COUNT(AUTO) 1.86 MIL/uL (4.20-5.40); RED CELL DISTRIBUTION WIDTH 18.9 % (11.6-13.7); WHITE BLOOD COUNT (AUTO) 8.7 K/uL (4.8-10.8)
--- NOTE | 2020-06-04 07:15 | NUR ---
ENDORSED PT TO DAY SHIFT NURSE FOR CONTINUITY OF CARE. PT IS STABLE AT THIS TIME. PLAN OF CARE DISCUSSED.
[2020-06-04 08:00] VITALS: BP 130/65
--- NOTE | 2020-06-04 08:00 | NUR ---
PATIENT RECEIVED IN BED. ASLEEP. EASY TO AROUSE. SKIN WARM TO TOUCH. ROOM AIR. PATIENT DENIES PAIN. BED IN LOWEST POSITION. CALL LIGHT WITHIN EASY REACH.
[2020-06-04 08:13] LABS: HEMATOCRIT 16.7 % (36-48); HEMOGLOBIN 5.5 g/dL (12.0-16.0)
[2020-06-04] MEDS: LACTULOSE 20 GM/30 ML UDC PO SCH (09:00)
[2020-06-04] MEDS: FERROUS GLUCONATE 324 MG TAB PO SCH ×2 (09:18→17:25)
[2020-06-04] MEDS: hydrALAZINE 25 MG TAB PO SCH ×3 (09:18→17:25)
[2020-06-04] MEDS: amLODIPine 5 MG TAB PO SCH (09:19)
[2020-06-04] MEDS: SUCRALFATE 1 GM TAB PO SCH ×4 (09:19→21:03)
[2020-06-04] MEDS: carvediloL 12.5 MG TAB PO SCH ×2 (09:19→21:05)
[2020-06-04 12:00] VITALS: BP 127/66
[2020-06-04] MEDS: INSULIN LISPRO SLIDING SCALE 100 UNITS/ML VIAL SUBQ PRN ×2 (13:53→22:13)
--- NOTE | 2020-06-04 14:28 | NUR ---
PATIENT SEEN BY ST AT THIS TIME. RECOMMENDATION IS MECHANICAL SOFT DIET WITH FINELY CHOPPED VEGETABLES AND MEAT. PATIENT EDUCATED TO EAT SMALL PORTION AND CHEW PROPERLY BEFORE SWALLOWING. PATIENT VERBALIZED UNDERSTANDING. CHARGE NURSE MADE AWARE.
--- NOTE | 2020-06-04 14:34 | NUR ---
PT WAS SEEN FOR DYSPHAGIA. PT WS ABLE TO SAFELY SWALLOW MS DIET WITH CHOPPED MEAT AND VEG WITH THIN LIQUID. MILD DIFFICULTY WITH MASTICATION SKILLS FOR REGULAR DIET. RECOMMENDATION MS DIET WITH CHOPPED VEG AND MEAT WITH THIN LIQUID.
--- NOTE | 2020-06-04 15:53 | NUR ---
06/04/20 RD INITIAL ASSESSMENT COMPLETED PLEASE REFER TO NUTRITION ASSESSMENT UNDER CARE ACTIVITY FOR ESTIMATED NUTRITIONAL NEEDS. 1. WORM GROWER RECOMMENDED MECHANICAL SOFT DIET WITH CHOPPED VEGETABLES AND MEAT. 2. RECOMMEND CCHO AND 2GM SODIUM DIETARY RESTRICTIONS 3. RD TO FOLLOW-UP 2-3 DAYS, HIGH RISK SHARON PLATA, RD
[2020-06-04 16:00] VITALS: BP 137/59
[2020-06-04] MEDS: MORPHINE SULFATE 2 MG/ML SYR IVP PRN (17:29)
[2020-06-04] MEDS: INSULIN LANTUS 100 UNITS/ML 10 ML VIAL SUBQ SCH (22:14)
--- NOTE | 2020-06-04 23:13 | NUR ---
I RECEIVED PT IN BED ALERT ORIENTED , DENIES PAIN , VSS , ON RA CLEAR LUNGS , SHE HAS RIGHTSIDED WEAKNES ,SKIN IS INTACT , SHE IS SR
--- NOTE | 2020-06-05 04:49 | NUR ---
PT SLEPT WELL , NO PAIN , VSS , SR
[2020-06-05] MEDS: LEVOTHYROXINE 0.05 MG TAB PO SCH (05:28)
[2020-06-05] MEDS: BLOOD GLUCOSE MONITORING 1 DEV DEV FS SCH ×4 (06:09→20:13)
[2020-06-05] MEDS: INSULIN LISPRO SLIDING SCALE 100 UNITS/ML VIAL SUBQ PRN ×2 (06:11→16:26)
--- NOTE | 2020-06-05 07:20 | NUR ---
RECEIVED ENDORSEMENT AT THIS TIME. PT IS RESTING IN BED WITH EYES CLOSED. RESP EVEN AND UNLABORED. CALL LIGHT WITHIN REACH. POC DISCUSSED AND WILL CONTINUE WITH POC.
[2020-06-05 08:00] VITALS: BP 145/61
--- NOTE | 2020-06-05 08:20 | NUR ---
SCHEDULED MEDICATION GIVEN TOLERATED WELL. DENIES ANY DISTRESS AT THIS TIME. AOX 4 ABLE TO COMMUNICATE EFFECTIVELY. LUNG SOUNDS CLEAR NO COUGH, ABD IS FLAT, SOFT AND NONTENDER WITH ACTIVE BS X 4. LBM 06/05 SKIN INTACT. HAS PATENT AND INTACT IV ACCESS TO LEFT FA NO REDNESS OR SWELLING. PT HAS RIGHT SIDED WEAKNESS REQUIRES ASSISTANCE WITH ADL'S.
[2020-06-05] MEDS: SUCRALFATE 1 GM TAB PO SCH ×4 (08:22→20:06)
[2020-06-05] MEDS: FERROUS GLUCONATE 324 MG TAB PO SCH ×2 (08:22→16:16)
[2020-06-05] MEDS: LACTULOSE 20 GM/30 ML UDC PO SCH (08:22)
[2020-06-05] MEDS: carvediloL 12.5 MG TAB PO SCH ×2 (08:26→20:06)
[2020-06-05] MEDS: hydrALAZINE 25 MG TAB PO SCH ×3 (08:26→16:16)
[2020-06-05] MEDS: amLODIPine 5 MG TAB PO SCH (08:26)
[2020-06-05] MEDS ORDERED: EPOETIN ALFA 2,000 UNITS/ML VIAL IV SCH (10:30)
--- NOTE | 2020-06-05 10:31 | NUR ---
CHECK PTS O2 SAT ON ROOM AIR AND 95% WITH NO SIGNS OF DISTRESS NOTED AT THIS TIME
[2020-06-05] MEDS: MORPHINE SULFATE 2 MG/ML SYR IVP PRN ×2 (10:43→20:05)
--- NOTE | 2020-06-05 10:50 | NUR ---
PT REPORTED PAIN 6/10 TO BACK REPORTS CHRONIC PAIN. PT WAS GIVEN MORPHINE 2 MG PER MD ORDERS IVP BP 135/70, 65 AT THIS TIME. ALL NEEDS MET. PROVISION OF CARE PROVIDED.
[2020-06-05 12:00] VITALS: BP 137/66
--- NOTE | 2020-06-05 12:30 | NUR ---
BS 131 NO COVERAGE NEEDED. ALL NEEDS MET AT THIS TIME.
--- NOTE | 2020-06-05 14:07 | NUR ---
RESTING IN BED, ALL NEEDS MET.
[2020-06-05 16:00] VITALS: BP 149/64
--- NOTE | 2020-06-05 16:23 | NUR ---
BS 171 COVERAGE GIVEN PER SLIDING SCALE. ALL NEEDS MET DENIES ANY DISTRESS. PT ASSISTED WITH USING TV. RESP EVEN AND UNLABORED.
[2020-06-05] MEDS: ONDANSETRON 4 MG/2 ML VIAL IVP PRN (17:23)
--- NOTE | 2020-06-05 18:30 | NUR ---
PT WAS GIVEN ZOFRAN DUE TO C/O NAUSEA REPORTS EFFECTIVE DENIES ANY DISTRESS. ALL NEEDS MET.
--- NOTE | 2020-06-05 19:15 | NUR ---
ENDORSED TO SPRINKLER FITTER RN AT THIS TIME PT IS STABLE WATCHING SHOW ON HER PHONE, DENIES ANY DISTRESS. CALL LIGHT WITHIN REACH.
--- NOTE | 2020-06-05 19:20 | NUR ---
RECEIVED BEDSIDE REPORT FROM DAY SHIFT NURSE. PATIENT IS AWAKE, ALERT, AND COOPERATIVE. RESPIRATION EVEN UNLABORED ON ROOM AIR. NO DISTRESS NOTED. SKIN IS WARM AND DRY. IV PATENT AND INTACT. SALINE LOCKED. PLAN OF CARE WAS DISCUSSED. ALL SAFETY MEASURES IN PLACE. BED IS AT LOW POSITION. CALL LIGHT WITHIN REACH. WILL CONTINUE TO MONITOR
[2020-06-05 20:00] VITALS: BP 140/66
--- NOTE | 2020-06-05 20:05 | NUR ---
INITIAL ASSESSMENT DONE. VITALS WERE TAKEN. ALL SCHEDULED MEDS WERE GIVEN PER ORDER. PATIENT COMPLAINED OF BACK PAIN 09/15. PRN PAIN MEDS GIVEN PER ORDER. WILL CONTINUE TO MONITOR.
[2020-06-05] MEDS: INSULIN LANTUS 100 UNITS/ML 10 ML VIAL SUBQ SCH (20:13)
--- NOTE | 2020-06-05 20:45 | NUR ---
ASSISTANT PROFESSOR OF MUSIC AT BEDSIDE.
[2020-06-06] VITALS: BP 147/65
[2020-06-06] MEDS: MORPHINE SULFATE 2 MG/ML SYR IVP PRN ×3 (00:18→21:47)
--- NOTE | 2020-06-06 00:21 | NUR ---
PATIENT COMPLAINED OF BACK PAIN 09/15. PRN PAIN MED GIVEN PER ORDER. WILL CONTINUE TO MONITOR.
--- NOTE | 2020-06-06 01:17 | NUR ---
MADE ROUNDS. PATIENT SLEEPING RESPIRATION EVEN UNLABORED ON ROOM AIR. NO DISTRESS NOTED. WILL CONTINUE TO MONITOR.
--- NOTE | 2020-06-06 02:43 | NUR ---
MADE ROUNDS. PATIENT SLEEPING RESPIRATION EVEN UNLABORED ON ROOM AIR. NO DISTRESS NOTED. WILL CONTINUE TO MONITOR.
[2020-06-06 04:00] VITALS: BP 151/62
[2020-06-06 06:00] LABS: BASOPHILS % (AUTO) 0.4 % (0.0-2.0); EOSINOPHILS # (AUTO) 0.3 K/uL (0-0.4); EOSINOPHILS % (AUTO) 4.7 % (0.0-4.0); LYMPHOCYTES # (AUTO) 0.7 K/uL (2.5-16.5); LYMPHOCYTES % (AUTO) 10.2 % (20.5-51.1); MEAN CORPUSCULAR HEMOGLOBIN 29 pg (27-31); MEAN CORPUSCULAR HGB CONC 31 g/dL (33-37); MEAN CORPUSCULAR VOLUME 92.2 fL (80-94); MONOCYTES # (AUTO) 0.7 K/uL (0.8-1.0); MONOCYTES % (AUTO) 10.7 % (1.7-9.3); NEUTROPHILS # (AUTO) 5.1 K/uL (1.8-7.7); PLATELET COUNT (AUTO) 224 K/uL (140-450); RED BLOOD CELL COUNT(AUTO) 1.86 MIL/uL (4.20-5.40); RED CELL DISTRIBUTION WIDTH 19.6 % (11.6-13.7); WHITE BLOOD COUNT (AUTO) 6.8 K/uL (4.8-10.8)
[2020-06-06] MEDS: LEVOTHYROXINE 0.05 MG TAB PO SCH (06:14)
[2020-06-06] MEDS: BLOOD GLUCOSE MONITORING 1 DEV DEV FS SCH ×4 (06:37→21:35)
[2020-06-06] MEDS: INSULIN LISPRO SLIDING SCALE 100 UNITS/ML VIAL SUBQ PRN ×3 (06:37→21:40)
[2020-06-06 06:44] LABS: ALBUMIN 2.2 g/dL (3.4-5.0); CHLORIDE 105 mmol/L (98-107); SODIUM SERUM 134 mmol/L (136-145); TOTAL BILIRUBIN 0.2 mg/dL (0.0-1.0); UREA NITROGEN, BLOOD 37 mg/dL (7-18)
[2020-06-06 06:50] LABS: HEMATOCRIT 17.2 % (36-48)
[2020-06-06 06:51] LABS: HEMOGLOBIN 5.4 g/dL (12.0-16.0)
--- NOTE | 2020-06-06 07:13 | NUR ---
ENDORSED PATIENT TO DAY SHIFT NURSE FOR CONTINUITY OF CARE.
[2020-06-06 08:00] VITALS: BP 150/63
[2020-06-06] MEDS: LACTULOSE 20 GM/30 ML UDC PO SCH (09:24)
[2020-06-06] MEDS: SUCRALFATE 1 GM TAB PO SCH ×4 (09:24→21:27)
[2020-06-06] MEDS: FERROUS GLUCONATE 324 MG TAB PO SCH ×2 (09:24→17:46)
[2020-06-06] MEDS: carvediloL 12.5 MG TAB PO SCH ×2 (09:25→21:27)
[2020-06-06] MEDS: amLODIPine 5 MG TAB PO SCH (09:26)
[2020-06-06] MEDS: hydrALAZINE 25 MG TAB PO SCH ×3 (09:27→17:46)
[2020-06-06 09:51] LABS: ANION GAP 14.8 (8-16); ASPARTATE AMINOTRANSFERASE 9 U/L (15-37); CARBON DIOXIDE 20.2 mmol/L (21-32); GLUCOSE 295 mg/dL (74-106)
[2020-06-06] MEDS: ONDANSETRON 4 MG/2 ML VIAL IVP PRN ×2 (10:06→22:50)
--- NOTE | 2020-06-06 11:57 | NUR ---
UPDATE NOTES RECEIVED BEDSIDE REPORT FROM IRRIGATOR SPRINKLING SYSTEM NURSE. PATIENT IS AWAKE, ALERT, AND COOPERATIVE. RESPIRATION EVEN UNLABORED ON ROOM AIR. NO DISTRESS NOTED. SKIN IS WARM AND DRY. IV PATENT AND INTACT TO LEFT FOREARM. SALINE LOCKED. PLAN OF CARE WAS DISCUSSED. ALL SAFETY MEASURES IN PLACE. BED IS AT LOW POSITION. CALL LIGHT WITHIN REACH. WILL CONTINUE TO MONITOR
[2020-06-06 12:00] VITALS: BP 159/65
--- NOTE | 2020-06-06 14:49 | NUR ---
06/06/20 RD FOLLOW UP COMPLETED PLEASE REFER TO NUTRITION ASSESSMENT UNDER CARE ACTIVITY FOR ESTIMATED NUTRITIONAL NEEDS. 1. CONTINUE CCHO AND 2GM NA MECHANICAL SOFT DIET 2. RECOMMEND GLUCERNA TID 3. PROVIDE ASSISTANCE WITH MEALS 4. RD TO FOLLOW-UP 3-5 DAYS, MODERATE RISK SHARON PLATA, RD
[2020-06-06 16:00] VITALS: BP 145/58
--- NOTE | 2020-06-06 18:38 | NUR ---
ALL INTERVENTIONS CARRIED OUT PER PROTOCOL. HGB STILL LOW AT 5.4 WITH PATIENT, FAMILY, AND MD AWARE - HOWEVER DUE TO HER BEING A JEHOVA WITNESS BLOOD PRODUCTS ARE NOT ACCEPTABLE. IS CCHO WITH 2G SODIUM. HEP C ANTIGEN TEST ORDERED. POTASSIUM WAS 6.0 THIS AM SO LACTULOSE 30G ADMINISTERED WITH 2 BMS FOLLOWING. ZOFRAN IV GIVEN AT 1000 DUE TO NAUSEA WHICH HAD GOOD EFFECT. WILL CONTINUE TO MONITOR.
--- NOTE | 2020-06-06 19:25 | NUR ---
RECEIVED PT FROM AM NURSE, ALERT AWAKE , RESPIRATION EVEN UNLABORED. NO DISTRESS NOTED. ON BED RESTED, DENIES PAIN.PLAN OF CARE WAS DISCUSSED WITH UNDERSTANDING.
[2020-06-06 20:00] VITALS: BP 133/71
[2020-06-06] MEDS: INSULIN LANTUS 100 UNITS/ML 10 ML VIAL SUBQ SCH (21:36)
--- NOTE | 2020-06-06 21:47 | NUR ---
SCHEDULED MEDS GIVEN PER ORDER, PT COMPLAINED OF PAIN, PRN MEDS GIVEN
--- NOTE | 2020-06-06 22:50 | NUR ---
PT COMPLAINED OF NAUSEA/VOMITING, PRN MED GIVEN ORDERED
[2020-06-06] MEDS ORDERED: SODIUM ZIRCONIUM CYCLOSILICATE 10 GM POWD.PACK PO ONE (23:45)
[2020-06-07] VITALS: BP 134/71
--- NOTE | 2020-06-07 00:16 | NUR ---
PT POTASSIUM IS 6.0. DR. MORA ORDERED LOKELWA, ADMINISTERED.
--- NOTE | 2020-06-07 02:15 | NUR ---
MADE ROUNDS, PT SLEEPING, NO DISTRESS NOTED.
[2020-06-07 04:00] VITALS: BP 134/71
[2020-06-07] MEDS: ACETAMINOPHEN 325 MG TAB PO PRN (06:00)
[2020-06-07] MEDS: LEVOTHYROXINE 0.05 MG TAB PO SCH (06:00)
--- NOTE | 2020-06-07 06:00 | NUR ---
PT TEMP 100.4 PRN MEDS GIVEN, COOLING MEASURES APPLIED.
[2020-06-07 06:41] LABS: BASOPHILS % (AUTO) 0.6 % (0.0-2.0); EOSINOPHILS # (AUTO) 0.3 K/uL (0-0.4); EOSINOPHILS % (AUTO) 3.5 % (0.0-4.0); LYMPHOCYTES # (AUTO) 0.9 K/uL (2.5-16.5); LYMPHOCYTES % (AUTO) 12.3 % (20.5-51.1); MEAN CORPUSCULAR HEMOGLOBIN 30 pg (27-31); MEAN CORPUSCULAR HGB CONC 32 g/dL (33-37); MEAN CORPUSCULAR VOLUME 92.2 fL (80-94); MONOCYTES # (AUTO) 0.7 K/uL (0.8-1.0); MONOCYTES % (AUTO) 10.2 % (1.7-9.3); NEUTROPHILS # (AUTO) 5.3 K/uL (1.8-7.7); NEUTROPHILS % (AUTO) 73.4 % (42.2-75.2); PLATELET COUNT (AUTO) 253 K/uL (140-450); RED BLOOD CELL COUNT(AUTO) 2.03 MIL/uL (4.20-5.40); RED CELL DISTRIBUTION WIDTH 19.7 % (11.6-13.7); WHITE BLOOD COUNT (AUTO) 7.2 K/uL (4.8-10.8)
[2020-06-07] MEDS: INSULIN LISPRO SLIDING SCALE 100 UNITS/ML VIAL SUBQ PRN ×2 (06:44→17:47)
--- NOTE | 2020-06-07 06:45 | NUR ---
REASSESSED PATIENT TEMPERATURE. PATIENT TEMP IS 98.4 AFEBRILE
[2020-06-07] MEDS: BLOOD GLUCOSE MONITORING 1 DEV DEV FS SCH ×4 (06:46→20:37)
[2020-06-07 07:22] LABS: ALBUMIN 2.4 g/dL (3.4-5.0); ANION GAP 12.2 (8-16); ASPARTATE AMINOTRANSFERASE 5 U/L (15-37); CARBON DIOXIDE 22.8 mmol/L (21-32); CHLORIDE 104 mmol/L (98-107); CREATININE 3.4 mg/dL (0.6-1.3); GLUCOSE 210 mg/dL (74-106); SODIUM SERUM 133 mmol/L (136-145); TOTAL BILIRUBIN 0.4 mg/dL (0.0-1.0); UREA NITROGEN, BLOOD 42 mg/dL (7-18)
--- NOTE | 2020-06-07 07:26 | NUR ---
ENDORSED PT TO DAY SHIFT NURSE FOR CONTINUITY OF CARE..
[2020-06-07 08:00] VITALS: BP 139/65
--- NOTE | 2020-06-07 08:29 | NUR ---
PAGED THE EXCHANGE FOR DR. ISRAEL TO FOLLOW UP WITH THE CONSULT, AWAITING FOR CALL BACK. RN ASSIGNED MADE AWARE.
[2020-06-07 08:54] LABS: HEMATOCRIT 18.7 % (36-48)
[2020-06-07] MEDS: SUCRALFATE 1 GM TAB PO SCH ×4 (10:40→21:55)
[2020-06-07] MEDS: FERROUS GLUCONATE 324 MG TAB PO SCH (10:40)
[2020-06-07] MEDS: amLODIPine 5 MG TAB PO SCH (10:41)
[2020-06-07] MEDS: carvediloL 12.5 MG TAB PO SCH ×2 (10:41→21:55)
[2020-06-07] MEDS: hydrALAZINE 25 MG TAB PO SCH ×3 (10:41→17:45)
[2020-06-07] MEDS: LACTULOSE 20 GM/30 ML UDC PO SCH (10:42)
--- NOTE | 2020-06-07 11:00 | NUR ---
K 6.[address] MEEK WAS PAGED AND RESPONDED. WAS PROVIDED WITH K LEVEL OF 6.0 AND BUN/CRE - PER DR MEEK HE WILL REVIEW PATIENT CHART AND PLACE ORDER NEPHRO CONSULT WAS ORDERED
[2020-06-07 12:00] VITALS: BP_SYST 118; BP_SYST 150; BP_DIAS 50; BP_DIAS 60
[2020-06-07] MEDS ORDERED: NACL 0.9% 1,000 ML IV SCH (12:20)
[2020-06-07] MEDS ORDERED: INSULIN REGULAR, HUMAN 100 UNIT/ML VIAL IVP SCH (13:00)
[2020-06-07] MEDS ORDERED: DEXTROSE 50% 50 ML SYR IVP SCH (13:00)
[2020-06-07] MEDS: SODIUM ZIRCONIUM CYCLOSILICATE 10 GM POWD.PACK PO SCH ×2 (14:36→20:59)
[2020-06-07 15:55] LABS: APPEARANCE,URINE CLEAR (CLEAR); BILIRUBIN,URINE NEGATIVE (NEGATIVE); BLOOD, URINE NEGATIVE (NEGATIVE); COLOR,URINE YELLOW (YELLOW); LEUKOCYTE ESTERASE ,URINE NEGATIVE (NEGATIVE); NITRITE, URINE NEGATIVE (NEGATIVE); UGLUCOSE TRACE (NEGATIVE)
[2020-06-07] MEDS ORDERED: CLOP75TA26 PO (15:55)
[2020-06-07 16:00] VITALS: BP 118/50
[2020-06-07] MEDS ORDERED: PROC2I SQ (16:57)
--- NOTE | 2020-06-07 16:58 | NUR ---
DAY SHIFT Patient Received awake and alert, able to communicate well. No complaints of pain or acute distress. K addressed by Nephro . Administered 10 units regular insulin after administering 1/2 amp of D50. NS running at 70cc/hr. Dr. Perkins ordered to place frey - frey placed on first attempt. Urine sample collected. Dr Cat gave verbal order to remove frey. IV patent and flushing well.
--- NOTE | 2020-06-07 19:15 | NUR ---
RECEIVED REPORT FROM DINO DE LA FUENTE. PT AOX4 ON ROOM AIR. NO S/S RESPIRATORY DISTRESS. NO C/O PAIN AT THIS TIME. IV SITE LFA 22G PATENT INTACT, INFUSING NS @ 70ML/HR. SAFETY MEASURES IN PLACE. CALL LIGHT WITHIN REACH. WILL CONTINUE TO MONITOR
[2020-06-07 20:00] VITALS: BP 131/69
[2020-06-07] MEDS: INSULIN LANTUS 100 UNITS/ML 10 ML VIAL SUBQ SCH (21:00)
[2020-06-07] MEDS: ONDANSETRON 4 MG/2 ML VIAL IVP PRN (21:10)
--- NOTE | 2020-06-07 22:05 | NUR ---
ADMINISTERED SCHEDULED MEDICATIONS. EDUCATION PROVIDED. NO DISTRESS NOTED. CALL LIGHT WITHIN REACH. WILL CONTINUE TO MONITOR
--- NOTE | 2020-06-07 23:22 | NUR ---
HELD LANTUS DUE TO PATIENT NOT HAVING APPETITE, NOT EATING, AND DECREASED BLOOD SUGAR. NO DISTRESS NOTED. CALL LIGHT WITHIN REACH. WILL CONTINUE TO MONITOR
[2020-06-08] VITALS: BP 150/71
--- NOTE | 2020-06-08 00:13 | NUR ---
PATIENT ASLEEP IN BED. RESPIRATIONS EVEN UNLABORED. NO DISTRESS NOTED. SAFETY MEASURES IN PLACE. BED IN LOW POSITION. CALL LIGHT WITHIN REACH. WILL CONTINUE TO MONITOR
[2020-06-08] MEDS: ACETAMINOPHEN 325 MG TAB PO PRN (00:47)
[2020-06-08] MEDS: ONDANSETRON 4 MG/2 ML VIAL IVP PRN (01:11)
[2020-06-08] MEDS: MORPHINE SULFATE 2 MG/ML SYR IVP PRN (01:58)
--- NOTE | 2020-06-08 02:01 | NUR ---
PRN MORPHINE GIVEN FOR C/O SEVERE HIP PAIN. BED IN LOW POSITION. CALL LIGHT WITHIN REACH. WILL CONTINUE TO MONITOR
[2020-06-08 04:00] VITALS: BP 123/57
[2020-06-08] MEDS: SODIUM ZIRCONIUM CYCLOSILICATE 10 GM POWD.PACK PO SCH (05:10)
[2020-06-08 06:11] LABS: ALBUMIN 2.2 g/dL (3.4-5.0); ASPARTATE AMINOTRANSFERASE 6 U/L (15-37); CARBON DIOXIDE 22.4 mmol/L (21-32); CHLORIDE 104 mmol/L (98-107); CREATININE 3.5 mg/dL (0.6-1.3); GLUCOSE 206 mg/dL (74-106); POTASSIUM 5.4 mmol/L (3.5-5.1); SODIUM SERUM 133 mmol/L (136-145); TOTAL BILIRUBIN 0.2 mg/dL (0.0-1.0); UREA NITROGEN, BLOOD 42 mg/dL (7-18)
[2020-06-08] MEDS: LEVOTHYROXINE 0.05 MG TAB PO SCH (06:20)
[2020-06-08 06:23] LABS: BASOPHILS % (AUTO) 0.5 % (0.0-2.0); EOSINOPHILS # (AUTO) 0.1 K/uL (0-0.4); EOSINOPHILS % (AUTO) 1.9 % (0.0-4.0); LYMPHOCYTES # (AUTO) 0.8 K/uL (2.5-16.5); MEAN CORPUSCULAR HEMOGLOBIN 29 pg (27-31); MEAN CORPUSCULAR HGB CONC 32 g/dL (33-37); MEAN CORPUSCULAR VOLUME 92.6 fL (80-94); MONOCYTES # (AUTO) 0.6 K/uL (0.8-1.0); MONOCYTES % (AUTO) 8.6 % (1.7-9.3); NEUTROPHILS # (AUTO) 5.2 K/uL (1.8-7.7); PLATELET COUNT (AUTO) 211 K/uL (140-450); RED BLOOD CELL COUNT(AUTO) 1.79 MIL/uL (4.20-5.40); RED CELL DISTRIBUTION WIDTH 19.5 % (11.6-13.7); WHITE BLOOD COUNT (AUTO) 6.8 K/uL (4.8-10.8)
[2020-06-08 06:24] LABS: MAGNESIUM 2.7 mg/dL (1.8-2.4); PHOSPHORUS 4.6 mg/dL (2.5-4.9)
[2020-06-08] MEDS: INSULIN LISPRO SLIDING SCALE 100 UNITS/ML VIAL SUBQ PRN ×4 (06:24→20:07)
[2020-06-08] MEDS: BLOOD GLUCOSE MONITORING 1 DEV DEV FS SCH ×4 (06:24→19:55)
--- NOTE | 2020-06-08 06:28 | NUR ---
SCHEDULED MEDICATION GIVEN. ADMINISTERED 2 UNITS INSULIN SUBQ FOR BLOOD SUGAR 187. NO DISTRESS NOTED. WILL CONTINUE TO MONITOR
--- NOTE | 2020-06-08 07:29 | NUR ---
ENDORSED PATIENT TO DAY RN FOR CONTINUITY OF CARE. PATIENT IS IN STABLE CONDITION
[2020-06-08 08:00] VITALS: BP 120/58
[2020-06-08 08:10] LABS: HEMOGLOBIN 5.3 g/dL (12.0-16.0)
[2020-06-08 08:11] LABS: HEMATOCRIT 16.6 % (36-48)
--- NOTE | 2020-06-08 08:15 | NUR ---
CRITICAL LAB HGB 5.3, HCT 16.6, DR MEEK MADE AWARE. DR MEEK ORDERS OCCULT BLOOD. WILL COLLECT ONCE PATIENT HAVE BM.
[2020-06-08] MEDS ORDERED: EPOETIN ALFA-EPBX 20,000 UNITS/ML VIAL SUBQ SCH (09:00)
[2020-06-08] MEDS: carvediloL 12.5 MG TAB PO SCH ×2 (09:42→20:21)
[2020-06-08] MEDS: hydrALAZINE 25 MG TAB PO SCH ×2 (09:42→12:51)
[2020-06-08] MEDS: amLODIPine 5 MG TAB PO SCH (09:42)
[2020-06-08] MEDS: LACTULOSE 20 GM/30 ML UDC PO SCH (09:43)
[2020-06-08] MEDS: SUCRALFATE 1 GM TAB PO SCH ×4 (09:44→20:20)
--- NOTE | 2020-06-08 09:44 | NUR ---
BLOOD CHECKED PRIOR TO MED ADMINISTER, BP 132/63 PULSE 65. AM SCHEDULED MEDS GIVEN. MED EDUCATION PROVIDED. REINFORCEMENT NEEDED DUE TO MENTAL STATUS AND MOTIVATION. PATIENT STATES THAT SHE DID SLEEP WELL LAST NIGHT AND WOULD LIKE TO TAKE A NAP. NO SIGNS OF ACUTE DISTRESS NOTED. SAFETY MEASURES IN PLACE.
[2020-06-08] MEDS ORDERED: NACL 0.9% 1,000 ML IV SCH (10:20)
[2020-06-08] MEDS ORDERED: IRON SUCROSE COMPLEX 100 MG/5 ML VIAL IVP SCH (10:20)
[2020-06-08] MEDS ORDERED: SODIUM ZIRCONIUM CYCLOSILICATE 10 GM POWD.PACK PO SCH (11:00)
--- NOTE | 2020-06-08 11:17 | NUR ---
BLOOD GLUCOSE 162, 2 UNIT HUMALOG GIVEN. SCHEDULED MED LOKELMA GIVEN, MED EDUCATION PROVIDED, PATIENT SAID OK. STARTED IVF NS AT 75 ML/HR PER MD ORDER. BRACE MAKER IS GIVING PATIENT A SPONGE BATH AT THIS TIME. DENIED ANY DISTRESS. SAFETY MEASURES IN PLACE.
[2020-06-08 12:00] VITALS: BP 138/68
[2020-06-08] MEDS ORDERED: IRON SUCROSE COMPLEX 200 MG in NACL 0.9% 100 ML IV SCH ×2 (12:00)
--- NOTE | 2020-06-08 12:30 | NUR ---
IV INFILTRATED ON R HAND, RESTARTED NEW IV ON L HAND 24G, CONTINUE RUNNING NS AT 75 ML/HR. PATIENT IS HAVING LUNCH AT THIS TIME, NO SIGNS OF DISTRESS NOTED. SAFETY MEASURES IN PLACE.
--- NOTE | 2020-06-08 12:53 | NUR ---
SCHEDULED MEDS ADMINISTERED, MEDS EDUCATION PROVIDED, PATIENT VERBALIZED OK. PATIENT IS STILL EATING LUNCH AND WATCHING TV ON BED. NO SIGNS OF ACUTE DISTRESS NOTED.SAFETY MEASURES IN PLACE.
--- NOTE | 2020-06-08 13:20 | NUR ---
ATTENDED TO CALL LIGHT, PATIENT COMPLAINED SHE DOES NOT LIKE THE IV ON HER HAND AND SHE IS NOT USED TO IT. REMOVED IV, CANNULA INTACT, STARTED NEW IV ON L FOREARM 22G, CONTINUE TO INFUSING IVF PER MD ORDER. PATIENT IS WATCHING TV ON BED. NO SIGNS OF ACUTE DISTRESS NOTED. SAFETY MEASURES IN PLACE.
--- NOTE | 2020-06-08 13:50 | NUR ---
OCCULT BLOOD SIGN POSTED BY DOOR AND SCALDER MADE AWARE OF STOOL SPECIMEN NEEDED.
[2020-06-08 14:03] LABS: FREE T4 (FREE THYROXINE) 1.31 ng/dL (0.76-1.46); THYROID STIMULATING HORMONE 2.75 uIU/mL (0.34-3.74)
--- NOTE | 2020-06-08 14:04 | NUR ---
RECEIVED A CALL FROM SON KEE, UPDATED HIM WITH PATIENT'S CONDITION, KEE WAS AWARE.
[2020-06-08 16:00] VITALS: BP 139/63
--- NOTE | 2020-06-08 16:25 | NUR ---
BLOOD GLUCOSE 259, 6 UNIT HUMALOG COVERED. SCHEDULED MED ADMINISTERED, PATIENT TOLERATED FINE. PATIENT IS RESTING ON BED AT THIS TIME. DENIED OF ANY DISTRESS. SAFETY MEASURES IN PLACE.
--- NOTE | 2020-06-08 16:44 | NUR ---
DR CHOE IS ROUNDING ON PATIENT.
--- NOTE | 2020-06-08 19:03 | NUR ---
ENDORSED PATIENT TO OPERATIONS EXPERT NURSE BHAKTI FOR CONTINUITY OF CARE. PATIENT IN STABLE CONDITION. SAFETY MEASURES IN PLACE. BHAKTI AWARE OCCULT BLOOD X3 IS PENDING, SIGN POSTED ON DOOR.
--- NOTE | 2020-06-08 19:04 | NUR ---
RECEIVED REPORT FROM DINO MCMANUS. PT AOX4 ON ROOM AIR. NO S/S RESPIRATORY DISTRESS. NO C/O PAIN AT THIS TIME. IV SITE LFA 22G PATENT INTACT, S.L. SAFETY MEASURES IN PLACE. CALL LIGHT WITHIN REACH. WILL CONTINUE TO MONITOR
[2020-06-08 20:00] VITALS: BP 124/65
--- NOTE | 2020-06-08 20:26 | NUR ---
ADMINISTERED SCHEDULED MEDICATIONS, EDUCATION PROVIDED. 4 UNITS INSULIN SUBQ GIVEN FOR BLOOD SUGAR 224. NO DISTRESS NOTED. CALL LIGHT WITHIN REACH. WILL CONTINUE TO MONITOR
[2020-06-08] MEDS: INSULIN LANTUS 100 UNITS/ML 10 ML VIAL SUBQ SCH (21:00)
--- NOTE | 2020-06-08 21:00 | NUR ---
HELD LANTUS DUE TO PATIENT NOT HAVING APPETITE, NOT EATING. NO DISTRESS NOTED. CALL LIGHT WITHIN REACH. WILL CONTINUE TO MONITOR
[2020-06-09] VITALS: BP 116/58
--- NOTE | 2020-06-09 01:15 | NUR ---
PATIENT ASLEEP IN BED. RESPIRATIONS EVEN UNLABORED. NO S/S ACUTE DISTRESS NOTED. BED IN LOW POSITION. CALL LIGHT WITHIN REACH. WILL CONTINUE TO MONITOR
[2020-06-09] MEDS: MORPHINE SULFATE 2 MG/ML SYR IVP PRN ×2 (03:29→19:01)
--- NOTE | 2020-06-09 03:32 | NUR ---
PRN MORPHINE GIVEN FOR C/O SEVERE GENERAL BODYACHE. NO S/S ACUTE DISTRESS NOTED. BED IN LOW POSITION. CALL LIGHT WITHIN REACH. WILL CONTINUE TO MONITOR
[2020-06-09 04:00] VITALS: BP 148/66
--- NOTE | 2020-06-09 05:00 | NUR ---
CLEANED CHANGED REPOSITIONED PATIENT. TOLERATED WELL. DENIES DISTRESS. DENIES DISCOMFORT. WILL CONTINUE TO MONITOR
[2020-06-09] MEDS: LEVOTHYROXINE 0.05 MG TAB PO SCH (06:15)
[2020-06-09] MEDS: BLOOD GLUCOSE MONITORING 1 DEV DEV FS SCH ×4 (06:18→21:24)
[2020-06-09] MEDS: INSULIN LISPRO SLIDING SCALE 100 UNITS/ML VIAL SUBQ PRN ×3 (06:36→17:19)
--- NOTE | 2020-06-09 06:40 | NUR ---
SCHEDULED MEDICATION GIVEN. 6 UNITS INSULIN SUBQ GIVEN FOR BLOOD SUGAR 271. NO DISTRESS NOTED. CALL LIGHT WITHIN REACH. WILL CONTINUE TO MONITOR
--- NOTE | 2020-06-09 07:10 | NUR ---
ENDORSED PATIENT TO DAY RN FOR CONTINUITY OF CARE. PATIENT IS IN STABLE CONDITION
--- NOTE | 2020-06-09 07:15 | NUR ---
RECEIVED BEDSIDE REPORT FROM NIGHTSHIFT NURSE. PT RESTING IN BED. ABLE TO MAKE NEEDS KNOWN. RESPIRATIONS EVEN AND UNLABORED WITH NO SOB OR RESPIRATORY DISTRESS. SKIN WARM AND DRY TO TOUCH. IV SITE IN LFA 22G IS CLEAN, DRY, AND INTACT. SAFETY MEASURES IN PLACE. WILL CONTINUE TO MONITOR
[2020-06-09 07:35] LABS: ALBUMIN 2.3 g/dL (3.4-5.0); ANION GAP 12.1 (8-16); ASPARTATE AMINOTRANSFERASE 9 U/L (15-37); CARBON DIOXIDE 23.7 mmol/L (21-32); CHLORIDE 104 mmol/L (98-107); CREATININE 3.6 mg/dL (0.6-1.3); GLUCOSE 287 mg/dL (74-106); POTASSIUM 4.8 mmol/L (3.5-5.1); SODIUM SERUM 135 mmol/L (136-145); TOTAL BILIRUBIN 0.2 mg/dL (0.0-1.0); UREA NITROGEN, BLOOD 48 mg/dL (7-18)
[2020-06-09 07:49] LABS: BASOPHILS % (AUTO) 0.6 % (0.0-2.0); EOSINOPHILS # (AUTO) 0.3 K/uL (0-0.4); EOSINOPHILS % (AUTO) 5.8 % (0.0-4.0); LYMPHOCYTES # (AUTO) 0.5 K/uL (2.5-16.5); LYMPHOCYTES % (AUTO) 10.4 % (20.5-51.1); MEAN CORPUSCULAR HEMOGLOBIN 29 pg (27-31); MEAN CORPUSCULAR HGB CONC 32 g/dL (33-37); MEAN CORPUSCULAR VOLUME 90.8 fL (80-94); MONOCYTES # (AUTO) 0.4 K/uL (0.8-1.0); MONOCYTES % (AUTO) 7.7 % (1.7-9.3); NEUTROPHILS % (AUTO) 75.5 % (42.2-75.2); PLATELET COUNT (AUTO) 221 K/uL (140-450); RED BLOOD CELL COUNT(AUTO) 2.03 MIL/uL (4.20-5.40); RED CELL DISTRIBUTION WIDTH 19.3 % (11.6-13.7); WHITE BLOOD COUNT (AUTO) 5.3 K/uL (4.8-10.8)
--- NOTE | 2020-06-09 07:53 | NUR ---
RECEIVED CALL FROM LAB SAYING PT H&H IS 5.9 AND 18[address] REPORT[address]. MEEK. AWAITING ORDERS. WILL CONTINUE TO MONITOR
[2020-06-09 07:54] LABS: HEMATOCRIT 18.4 % (36-48); HEMOGLOBIN 5.9 g/dL (12.0-16.0)
[2020-06-09 08:00] VITALS: BP 127/61
[2020-06-09] MEDS: carvediloL 12.5 MG TAB PO SCH ×2 (09:00→20:10)
[2020-06-09] MEDS: SUCRALFATE 1 GM TAB PO SCH ×4 (09:06→20:10)
[2020-06-09] MEDS: amLODIPine 5 MG TAB PO SCH (09:06)
[2020-06-09] MEDS: LACTULOSE 20 GM/30 ML UDC PO SCH (09:06)
--- NOTE | 2020-06-09 09:17 | NUR ---
ADMINISTERED SCHED MED PRESCRIBED PER MD ORDER. PT TOLERATED WELL. MEDICATION EDUCATION PERFORMED. PT VERBALIZED UNDERSTANDING. SAFETY MEASURES IN PLACE. WILL CONTINUE TO MONITOR
[2020-06-09] MEDS ORDERED: SODIUM PHOSPHATE 118 ML ENEM RC PRN (11:25)
[2020-06-09] MEDS ORDERED: DOCUSATE SOD/SENNA 50/8.6 MG 1 TAB PO PRN (11:25)
--- NOTE | 2020-06-09 11:30 | NUR ---
PT BLOOD SUGAR IS 213. PRN INSULIN TO BE ADMINISTERED PRESCRIBED PER MD ORDER.
[2020-06-09] MEDS: POLYETHYLENE GLYCOL 17 GM/PKT PO SCH (11:45)
[2020-06-09 12:00] VITALS: BP 110/71
--- NOTE | 2020-06-09 12:15 | NUR ---
ADMINISTERED PRN INSULIN PRESCRIBED PER MD ORDER. PT TOLERATED WELL. MEDICATION EDUCATION PERFORMED. PT VERBALIZED UNDERSTANDING. SAFETY MEASURES IN PLACE. WILL CONTINUE TO MONITOR
--- NOTE | 2020-06-09 14:15 | NUR ---
OBTAINED FIRST SPECIMEN OF OCCULT BLOOD AND SENT TO LAB. WILL CONTINUE TO MONITOR
[2020-06-09 16:00] VITALS: BP 143/64
--- NOTE | 2020-06-09 16:30 | NUR ---
PT BLOOD SUGAR IS 266. PRN INSULIN TO BE ADMINISTERED PRESCRIBED PER MD ORDER WITH MEAL. WILL CONTINUE TO MONITOR
--- NOTE | 2020-06-09 17:24 | NUR ---
ADMINISTERED PRN INSULIN AND SCHED MED PRESCRIBED PER MD ORDER. PT TOLERATED WELL. MEDICATION EDUCATION PERFORMED. PT VERBALIZED UNDERSTANDING. SAFETY MEASURES IN PLACE. WILL CONTINUE TO MONITOR
--- NOTE | 2020-06-09 19:01 | NUR ---
PT COMPLAINED OF SEVERE PAIN. PRN MORPHINE ADMINISTERED PRESCRIBED PER MD ORDER. WILL CONTINUE TO MONITOR
--- NOTE | 2020-06-09 19:16 | NUR ---
ENDORSED AT BEDSIDE TO NIGHTSHIFT FOR CONTINUITY OF CARE. PT IS STABLE
--- NOTE | 2020-06-09 19:30 | NUR ---
RECEIVED REPORT FROM MONICA SHPEPARD DAYSHIFT NURSE FOR CONTINUITY OF CARE, PT IN STABLE CONDITION. SHE IS AOX4 WITH PERIODS OF FORGETFULNESS SHE IS LYING IN BED WITH HOB UP 35%. SHE HAS 2.5 LITERS 02 VIA N/C 02 IS 98% LUNG SOUNDS ARE CLEAR BUT DIMINISHED. RESPIRATIONS EVEN AND UNLABORED. HER SKIN IS INTACT, SHE HAS A LEFT F/A 22G WHICH IS SALINE LOCKED AT THIS TIME. ALL REQUESTED NEEDS ATTENDED BY STAFF, AND ALL ORDERED PRECAUTIONS IN PLACE.
[2020-06-09 20:00] VITALS: BP 128/57
--- NOTE | 2020-06-09 20:30 | NUR ---
PT FINGERSTICK IS 188, OTHER V/S FOLLOWS: T 97.6 P 59 R 20 B/P 128/57 02 98%. PT WAS TURNED, AND CHANGED IN BED, PT ABLE TO REPOSITION HERSELF. ALL REQUESTED NEEDS ATTENDED BY STAFF. AND ALL FALLS PRECAUTIONS IN PLACE.
--- NOTE | 2020-06-09 21:15 | NUR ---
PT WAS GIVEN DUE MEDS OF CARAFATE, COREG AND LANTUS ORDERED. EDUCATION REGARDING MEDICATION PROVIDED AT BEDSIDE. PT VERBALIZED UNDERSTANDING. PT DECLINED 2 UNITS OF HUMALOG COVERAGE BUT DID TAKE THE 15 UNITS OF ORDERED LANTUS. ALL FALLS PRECAUTIONS IN PLACE.
[2020-06-09] MEDS: INSULIN LANTUS 100 UNITS/ML 10 ML VIAL SUBQ SCH (21:21)
--- NOTE | 2020-06-09 22:30 | NUR ---
PT IN BED ASLEEP, SHE CONTINUES ON 2.5 LITERS OF N/C, RESPIRATIONS EVEN AND UNLABORED, NO BLEEDING OR BM NOTED.
[2020-06-10] VITALS: BP 132/57
--- NOTE | 2020-06-10 | NUR ---
PT RESTING WITH EYES CLOSED BUT AROUSABLE TO NAME AND LIGHT TOUCH V/S FOLLOWS: T 98.2 P 56 R 20 B/P 132/57 02 100% WITH 2.5 LITERS 02 VIA N/C. ALL ORDERED PRECAUTIONS IN PLACE.
[2020-06-10] MEDS: MORPHINE SULFATE 2 MG/ML SYR IVP PRN ×4 (00:56→20:17)
--- NOTE | 2020-06-10 01:00 | NUR ---
PT AWOKE AND REQUESTED TO BE CHANGED. PT WAS CHANGED IN BED NO BM NOTED. THEN PT REQUESTED A SANDWICH FOR A SNACK AND WAS GIVEN TURKEY SANDWICH. PT ALSO REQUESTED TO BE PULLED UP IN BED BECAUSE SHE FELT SOB. PT REMAINS ON 2.5 LITERS AND 02 WAS RETAKEN AND IT WAS 100%. SHE WAS PULLED UP AND HOB UP 45%. PT REQUESTED AND WAS GIVEN WARM BLANKETS. ALL FALLS PRECAUTIONS IN PLACE.
--- NOTE | 2020-06-10 02:00 | NUR ---
PT IN BED SLEEPING, RESPIRATIONS EVEN AND UNLABORED, SHE CONTINUES ON 2.5 LITERS 02 VIA N/C. ALL FALLS PRECAUTIONS IN PLACE.
[2020-06-10 04:00] VITALS: BP 129/55
--- NOTE | 2020-06-10 04:24 | NUR ---
PT WAS TURNED, CHANGED AND REPOSITIONED IN BED. V/S FOLLOWS: T 98.1 P 55 R 18 B/P 129/55 02 100% ON 2.5 LITERS 02 VIA N/C. ALL [id number] NEEDS ATTENDED BY STAFF AND ALL FALLS PRECAUTIONS IN PLACE.
[2020-06-10] MEDS ORDERED: CRUSHER, PILL MC ONE (06:28)
[2020-06-10 06:35] LABS: ANION GAP 10.1 (8-16); CARBON DIOXIDE 25.7 mmol/L (21-32); CHLORIDE 105 mmol/L (98-107); CREATININE 3.7 mg/dL (0.6-1.3); GLUCOSE 164 mg/dL (74-106); POTASSIUM 4.8 mmol/L (3.5-5.1); SODIUM SERUM 136 mmol/L (136-145); UREA NITROGEN, BLOOD 54 mg/dL (7-18)
[2020-06-10 06:44] LABS: BASOPHILS % (AUTO) 0.6 % (0.0-2.0); EOSINOPHILS # (AUTO) 0.3 K/uL (0-0.4); EOSINOPHILS % (AUTO) 5.8 % (0.0-4.0); LYMPHOCYTES # (AUTO) 0.7 K/uL (2.5-16.5); LYMPHOCYTES % (AUTO) 11.7 % (20.5-51.1); MEAN CORPUSCULAR HEMOGLOBIN 30 pg (27-31); MEAN CORPUSCULAR HGB CONC 32 g/dL (33-37); MEAN CORPUSCULAR VOLUME 91.9 fL (80-94); MONOCYTES # (AUTO) 0.5 K/uL (0.8-1.0); MONOCYTES % (AUTO) 7.8 % (1.7-9.3); NEUTROPHILS # (AUTO) 4.4 K/uL (1.8-7.7); NEUTROPHILS % (AUTO) 74.1 % (42.2-75.2); PLATELET COUNT (AUTO) 212 K/uL (140-450); RED BLOOD CELL COUNT(AUTO) 1.95 MIL/uL (4.20-5.40); RED CELL DISTRIBUTION WIDTH 18.9 % (11.6-13.7); WHITE BLOOD COUNT (AUTO) 5.9 K/uL (4.8-10.8)
--- NOTE | 2020-06-10 06:50 | NUR ---
PT FINGERSTICK IS 149, NO HUMALOG COVERAGE NEEDED. PT GIVEN ORDERED SYNTHROID, PT ALSO C/O OF SEVERE GENERALIZED PAIN. PT GIVEN ORDERED PRN 2 MG MORPHINE. ALL FALLS PRECAUTIONS IN PLACE.
[2020-06-10] MEDS: BLOOD GLUCOSE MONITORING 1 DEV DEV FS SCH ×4 (06:51→20:17)
[2020-06-10] MEDS: LEVOTHYROXINE 0.05 MG TAB PO SCH (06:51)
--- NOTE | 2020-06-10 07:20 | NUR ---
REPORT GIVEN TO OVIDIO SHEPPARD DAYSHIFT NURSE FOR CONTINUITY OF CARE, PT IN STABLE CONDITION.
--- NOTE | 2020-06-10 07:25 | NUR ---
RECEIVED PT FROM ULTRASOUND MANAGER NURSE, CHINMAY, PT IS AWAKE AND SEATED ON THE BED WITH SIDE RAILS UP AND CALL LIGHT WITHIN REACH, PT IS ON RA, WITH IV LINE NOTED ON THE LFA G. 22 ON SALINE LOCK, PT DENIES PAIN AND NO SIGN OF DISTRESS NOTED, WILL CONTINUE TO MONITOR PT.
[2020-06-10 08:00] VITALS: BP 136/59
[2020-06-10] MEDS: LACTULOSE 20 GM/30 ML UDC PO SCH (08:46)
[2020-06-10] MEDS: SUCRALFATE 1 GM TAB PO SCH ×4 (08:46→20:17)
[2020-06-10] MEDS: POLYETHYLENE GLYCOL 17 GM/PKT PO SCH (08:46)
[2020-06-10] MEDS: EPOETIN ALFA-EPBX 20,000 UNITS/ML VIAL SUBQ SCH (08:47)
[2020-06-10] MEDS: amLODIPine 5 MG TAB PO SCH (08:47)
[2020-06-10] MEDS: carvediloL 12.5 MG TAB PO SCH ×2 (08:50→20:31)
--- NOTE | 2020-06-10 08:50 | NUR ---
PT WAS GIVEN THE SCHEDULED AM MEDICATIONS, PARAMETERS CHECKED, BP IS 134/60, PULSE IS 64 MANUALLY, O2 SATURATION IS AT 100% ON O2 2.5L NC, WILL CONTINUE TO MONITOR PT.
[2020-06-10] MEDS ORDERED: EPOETIN ALFA-EPBX 20,000 UNITS/ML VIAL ONE (09:00)
--- NOTE | 2020-06-10 10:15 | NUR ---
PT WAS CLEANED NOW, SOAKED WITH PEE, WILL MONITOR PT.
[2020-06-10 10:16] LABS: HEMOGLOBIN 5.8 g/dL (12.0-16.0)
[2020-06-10] MEDS: INSULIN LISPRO SLIDING SCALE 100 UNITS/ML VIAL SUBQ PRN ×3 (11:41→20:30)
[2020-06-10 12:00] VITALS: BP 150/68
--- NOTE | 2020-06-10 12:38 | NUR ---
PT WAS GIVEN THE SCHEDULED CARAFATE MEDICATION NOW, WILL MONITOR PT.
--- NOTE | 2020-06-10 15:37 | NUR ---
PT C/O PAIN RATE OF 11/16 AND WAS MEDICATED NOW VIA IV PUSH, BP IS 150/58, PULSE IS 60, TEMP IS 97, RESPIRATION IS AT 18/MIN AND O SATURATION IS AT 99% ON O2 3L NC, WILL MONITOR PT.
[2020-06-10 16:00] VITALS: BP 149/62
--- NOTE | 2020-06-10 16:31 | NUR ---
PT WAS GIVEN THE SCHEDULED ORAL MEDICATION AND INSULIN 6 UNITS FOR BLOOD GLUCOSE OF 252, WILL MONITOR PT.
--- NOTE | 2020-06-10 19:10 | NUR ---
RECEIVED PT AAOX3 - EASILY FORGETS THE TOPIC . NID - O2 SAT WNL , ON O2 AT 2LPM/ NC . ON SL - INTACT AND PATENT . SAFETY MEASURES INPLACE - BED ALARM ON . PLAN OF CARE DISCUSSED AND VERBALIZE UNDERSTANDING - NEEDS REINFORCEMENT . C/O PAIN - WILL MEDICATE ORDERED . WILL CONT . TO MONITOR . ON TELE MONITOR
--- NOTE | 2020-06-10 19:10 | NUR ---
ENDORSED PT TO COIN MACHINE COLLECTOR SUPERVISOR NURSE ARACELY FOR CONTINUITY OF CARE.
[2020-06-10 20:00] VITALS: BP 137/57
[2020-06-10] MEDS: INSULIN LANTUS 100 UNITS/ML 10 ML VIAL SUBQ SCH (20:29)
--- NOTE | 2020-06-10 22:30 | NUR ---
C/O PAIN O0N IV SITE - INFILTRATED - 5REMOVE IV CANULLA - IV NEEDLE INTACT / COMPLETE - MIN. BLEEDING - WILL INSERT NEW IV ACCESS.
--- NOTE | 2020-06-10 23:00 | NUR ---
NEW IV CANULLA INSERTED - MIN. BLEEDING . PROCEDURE TOLERATED WELL . WILL CONT. TO MONITOR .
[2020-06-10] MEDS: ACETAMINOPHEN 325 MG TAB PO PRN (23:27)
[2020-06-11] VITALS: BP 137/58
--- NOTE | 2020-06-11 02:00 | NUR ---
sleeping , on tele monitor.
[2020-06-11 04:00] VITALS: BP 142/72
--- NOTE | 2020-06-11 04:00 | NUR ---
MADE ROUNDS , NO S/X OF ACUTE DISTRESS NOTED .
[2020-06-11 05:25] LABS: BASOPHILS % (AUTO) 0.7 % (0.0-2.0); EOSINOPHILS # (AUTO) 0.4 K/uL (0-0.4); EOSINOPHILS % (AUTO) 6.4 % (0.0-4.0); LYMPHOCYTES # (AUTO) 0.9 K/uL (2.5-16.5); LYMPHOCYTES % (AUTO) 15.4 % (20.5-51.1); MEAN CORPUSCULAR HEMOGLOBIN 29 pg (27-31); MEAN CORPUSCULAR HGB CONC 31 g/dL (33-37); MEAN CORPUSCULAR VOLUME 92.8 fL (80-94); MONOCYTES # (AUTO) 0.5 K/uL (0.8-1.0); NEUTROPHILS # (AUTO) 4.1 K/uL (1.8-7.7); NEUTROPHILS % (AUTO) 69.5 % (42.2-75.2); PLATELET COUNT (AUTO) 198 K/uL (140-450); RED CELL DISTRIBUTION WIDTH 19.8 % (11.6-13.7)
[2020-06-11 05:36] LABS: ANION GAP 8.8 (8-16); CARBON DIOXIDE 26.3 mmol/L (21-32); CHLORIDE 105 mmol/L (98-107); CREATININE 3.7 mg/dL (0.6-1.3); GLUCOSE 186 mg/dL (74-106); POTASSIUM 5.1 mmol/L (3.5-5.1); SODIUM SERUM 135 mmol/L (136-145); UREA NITROGEN, BLOOD 52 mg/dL (7-18)
[2020-06-11] MEDS: LEVOTHYROXINE 0.05 MG TAB PO SCH (07:02)
[2020-06-11] MEDS: INSULIN LISPRO SLIDING SCALE 100 UNITS/ML VIAL SUBQ PRN ×3 (07:03→18:23)
[2020-06-11] MEDS: BLOOD GLUCOSE MONITORING 1 DEV DEV FS SCH ×4 (07:03→20:37)
--- NOTE | 2020-06-11 07:05 | NUR ---
RECEIVED REPORT FROM NIGHT NURSE FOR CONTINUITY OF CARE. PT ASLEEP. PT ON 4L NC, NO SIGNS OF DISTRESS NOTED. PT HAS RH 20G SALINE LOCK. SKIN INTACT. SAFETY MEASURES IN PLACE, WILL CONTINUE TO MONITOR.
--- NOTE | 2020-06-11 07:05 | NUR ---
ENDORSED - PT - STABLE
[2020-06-11 08:00] VITALS: BP 107/68
[2020-06-11 08:11] LABS: HEMOGLOBIN 5.8 g/dL (12.0-16.0)
[2020-06-11 08:12] LABS: HEMATOCRIT 18.6 % (36-48)
[2020-06-11] MEDS: LACTULOSE 20 GM/30 ML UDC PO SCH (09:00)
[2020-06-11] MEDS: amLODIPine 5 MG TAB PO SCH (09:00)
[2020-06-11] MEDS: carvediloL 12.5 MG TAB PO SCH ×2 (09:00→20:35)
[2020-06-11] MEDS: POLYETHYLENE GLYCOL 17 GM/PKT PO SCH (09:06)
[2020-06-11] MEDS: SUCRALFATE 1 GM TAB PO SCH ×4 (09:07→20:34)
[2020-06-11] MEDS: MORPHINE SULFATE 2 MG/ML SYR IVP PRN ×3 (09:09→18:47)
--- NOTE | 2020-06-11 09:13 | NUR ---
ADMINISTERED SCHEDULED MEDICATION, MORPHINE FOR PAIN 10/10 BACK AND LEFT LEG. PT STATES STABBING PAIN. MEDICATION EDUCATION PROVIDED. PT TOLERATED WELL. PT IS ON 2L OXYGEN NC. WILL CONTINUE TO MONITOR.
--- NOTE | 2020-06-11 11:23 | NUR ---
ADMINISTERED 2 UNITS OF HUMALOG FOR BLOOD GLUCOSE OF 177, MEDICATION EDUCATION PROVIDED. PT TOLERATED WELL. WILL CONTINUE TO MONITOR.
[2020-06-11 12:00] VITALS: BP 157/64
--- NOTE | 2020-06-11 13:09 | NUR ---
ADMINISTERED SCHEDULED MEDICATION, MEDICATION EDUCATION PROVIDED. PT TOLERATED WELL. WILL CONTINUE TO MONITOR.
--- NOTE | 2020-06-11 13:41 | NUR ---
06/11/20 RD FOLLOW UP COMPLETED. PLEASE REFER TO NUTRITION ASSESSMENT UNDER CARE ACTIVITY FOR ESTIMATED NUTRITIONAL NEEDS. 1. CONTINUE RENAL DIET, MECH SOFT, NEPRO TID 2. PROVIDE ASSISTANCE WITH MEALS 3. RD TO FOLLOW-UP 3-5 DAYS, MODERATE RISK EVELIA HARRIS, RD
[2020-06-11] MEDS ORDERED: FUROSEMIDE 40 MG/4 ML VIAL IVP SCH (14:00)
--- NOTE | 2020-06-11 14:15 | NUR ---
ADMINISTERED SCHEDULED MEDICATION, MORPHINE FOR 9/10 GENERALIZED PAIN, MEDICATION EDUCATION PROVIDED. PT TOLERATED WELL. WILL CONTINUE TO MONITOR.
[2020-06-11 16:00] VITALS: BP 165/69
--- NOTE | 2020-06-11 16:00 | NUR ---
ENDORSE PT TO GARRY FOR CONTINUITY OF CARE
--- NOTE | 2020-06-11 16:08 | NUR ---
REC'D REPORT FOR CONTINUITY OF CARE. PT A/OX4, NO SIGN OF DISTRESS, CALL LIGHT WITHIN REACH.
--- NOTE | 2020-06-11 17:10 | NUR ---
FINGER GLUCOSE CHECK 204, WILL COVER ACCORDING TO SLIDING SCALE, ADMINISTERED PO MEDICATIONS, CRUSHED WITH APPLESAUCE PER PT. MOA AND SIDE EFFECTS DISCUSSED WITH PT WHO VERBALIZED UNDERSTANDING
--- NOTE | 2020-06-11 19:29 | NUR ---
ENDORSED PT FOR CONTINUITY OF CARE, PT STABLE. , NO SIGN OF DISTRESS
--- NOTE | 2020-06-11 19:30 | NUR ---
REPORT RECEIVED BY GARRY SHEPPARD DAYSHIFT NURSE FOR CONTINUITY OF CARE, PT IN STABLE CONDITION.
[2020-06-11 20:00] VITALS: BP 138/79
--- NOTE | 2020-06-11 20:00 | NUR ---
PT IS AOX4, SHE IS SITTING UP IN BED, RESPIRATIONS EVEN AND UNLABORED. SHE IS RUNNING 02 VIA N/C 02 STATING 97%. SHE HAS A R HAND 24 G WHICH IS SALINE LOCKED, BUT FLUSHED PATENT. PT ALSO HAS A PERIWICK IN PLACE WITH INTERMITTENT SUCTIONING. PT DENIES ANY PAIN, V/S FOLLOWS: T 98.0 P 60 R 20 B/P 138/79 02 97%. PT FINGERSTICK IS 185 ALL FALLS PRECAUTIONS IN PLACE.
[2020-06-11] MEDS: INSULIN LANTUS 100 UNITS/ML 10 ML VIAL SUBQ SCH (20:27)
--- NOTE | 2020-06-11 21:00 | NUR ---
PT GIVEN SCHEDULED CARAFATE, AND COREG. (B/P 138/79) PT ALSO GIVEN 15 UNITS OF LANTUS PT FINGERSTICK IS 185. PT ALSO GIVEN REQUESTED SANDWICH A SNACK. ALL OTHER REQUESTED NEEDS ATTENDED BY STAFF AND ALL ORDERED PRECAUTIONS IN PLACE.
--- NOTE | 2020-06-11 22:20 | NUR ---
PT IN BED EYES CLOSED AND RESTING. HOB UP 45% AND PT CONTINUES OF 2.5 LITERS 02. NO S/S OF PAIN OR DISTRESS NOTED, ALL FALLS PRECAUTIONS IN PLACE.
--- NOTE | 2020-06-11 23:30 | NUR ---
RECEIVED PATIENT FROM SILVER MOY FOR CONTINUITY OF CARE.
--- NOTE | 2020-06-11 23:33 | NUR ---
GAVE REPORT TO JAMES FOR CONTINUITY OF CARE, PT IN STABLE CONDITION.
[2020-06-12] VITALS: BP 128/56
--- NOTE | 2020-06-12 01:38 | NUR ---
MADE ROUNDS. PATIENT IS ASLEEP. NO S/S ACUTE DISTRESS. SAFETY PRECAUTIONS IN PLACE. CALL LIGHT WITHIN REACH.
--- NOTE | 2020-06-12 03:03 | NUR ---
INCONTINENT CARE RENDERED WITH PULVERIZING AND SIFTING OPERATOR AT BEDSIDE. NO S/S RESPIRATORY DISTRESS. NO C/O PAIN. NO S/S ACUTE DISTRESS. SAFETY PRECAUTIONS IN PLACE. CALL LIGHT WITHIN REACH.
[2020-06-12 04:00] VITALS: BP 145/67
--- NOTE | 2020-06-12 05:00 | NUR ---
PATIENT IS ASLEEP. NO S/S ACUTE DISTRESS. CALL LIGHT WITHIN REACH. SAFETY PRECAUTIONS IN PLACE.
[2020-06-12 05:39] LABS: PROTHROMBIN TIME 10.1 secs (10.8-13.4)
[2020-06-12 05:43] LABS: ANION GAP 8.6 (8-16); CARBON DIOXIDE 27.2 mmol/L (21-32); CHLORIDE 107 mmol/L (98-107); CREATININE 3.5 mg/dL (0.6-1.3); GLUCOSE 56 mg/dL (74-106); POTASSIUM 4.8 mmol/L (3.5-5.1); SODIUM SERUM 138 mmol/L (136-145); UREA NITROGEN, BLOOD 58 mg/dL (7-18)
[2020-06-12 06:21] LABS: BASOPHILS % (AUTO) 0.4 % (0.0-2.0); EOSINOPHILS # (AUTO) 0.4 K/uL (0-0.4); EOSINOPHILS % (AUTO) 6.5 % (0.0-4.0); LYMPHOCYTES # (AUTO) 0.8 K/uL (2.5-16.5); LYMPHOCYTES % (AUTO) 14.2 % (20.5-51.1); MEAN CORPUSCULAR HEMOGLOBIN 29 pg (27-31); MEAN CORPUSCULAR HGB CONC 32 g/dL (33-37); MEAN CORPUSCULAR VOLUME 91.7 fL (80-94); MONOCYTES # (AUTO) 0.5 K/uL (0.8-1.0); MONOCYTES % (AUTO) 8.6 % (1.7-9.3); NEUTROPHILS # (AUTO) 4.2 K/uL (1.8-7.7); NEUTROPHILS % (AUTO) 70.3 % (42.2-75.2); PLATELET COUNT (AUTO) 194 K/uL (140-450); RED BLOOD CELL COUNT(AUTO) 2.05 MIL/uL (4.20-5.40); RED CELL DISTRIBUTION WIDTH 19.7 % (11.6-13.7); WHITE BLOOD COUNT (AUTO) 5.9 K/uL (4.8-10.8)
[2020-06-12] MEDS: LEVOTHYROXINE 0.05 MG TAB PO SCH (06:29)
[2020-06-12] MEDS: BLOOD GLUCOSE MONITORING 1 DEV DEV FS SCH ×4 (06:30→19:55)
[2020-06-12 07:09] LABS: HEMATOCRIT 18.8 % (36-48); HEMOGLOBIN 5.9 g/dL (12.0-16.0)
--- NOTE | 2020-06-12 07:30 | NUR ---
RECEIVED BEDSIDE ENDORSEMENT FROM N[employer] NURSE FOR CONTINUITY OF CARE.
[2020-06-12 08:00] VITALS: BP 154/68
[2020-06-12] MEDS ORDERED: EPOETIN ALFA-EPBX 20,000 UNITS/ML VIAL ONE (09:00)
[2020-06-12] MEDS: amLODIPine 5 MG TAB PO SCH (09:41)
[2020-06-12] MEDS: SUCRALFATE 1 GM TAB PO SCH ×4 (09:41→20:23)
[2020-06-12] MEDS: carvediloL 12.5 MG TAB PO SCH ×2 (09:42→20:28)
[2020-06-12] MEDS: LACTULOSE 20 GM/30 ML UDC PO SCH (09:42)
[2020-06-12] MEDS: POLYETHYLENE GLYCOL 17 GM/PKT PO SCH (09:44)
[2020-06-12] MEDS: EPOETIN ALFA-EPBX 20,000 UNITS/ML VIAL SUBQ SCH (09:47)
--- NOTE | 2020-06-12 09:54 | NUR ---
ADMINISTERED PRESCRIBED MEDS PER MD ORDER. PATIENT TOLERATED WELL. MEDICATION EDUCATION PROVIDED. PATIENT VERBALIZED UNDERSTANDING. SAFETY MEASURES IN PLACE. WILL CONTINUE TO MONITOR.
[2020-06-12] MEDS: MORPHINE SULFATE 2 MG/ML SYR IVP PRN ×2 (10:35→15:42)
--- NOTE | 2020-06-12 10:39 | NUR ---
ADMINISTERED PRESCRIBED PRN MED FOR 09/15 PAIN. PATIENT TOLERATED WELL. MEDICATION EDUCATION PROVIDED, PATIENT VERBALIZED UNDERSTANDING. SAFETY MEASURES IN PLACE. WILL CONTINUE TO MONITOR
[2020-06-12 12:00] VITALS: BP 135/63
--- NOTE | 2020-06-12 12:00 | NUR ---
PATIENT BG 145, NO PRN INSULIN COVERAGE NEEDED. PATIENT SON AT BEDSIDE TO MEET W/ MD AT 1230. SAFETY MEASURES IN PLACE. WILL CONTINUE TO MONITOR.
[2020-06-12] MEDS ORDERED: FUROSEMIDE 40 MG/4 ML VIAL IVP SCH (13:00)
--- NOTE | 2020-06-12 13:51 | NUR ---
ADMINISTERED PRESCRIBED MEDS PER MD ORDER. PATIENT TOLERATED WELL. MD AND CASE MANAGEMENT AT BEDSIDE W/ PATIENT SON. SAFETY MEASURES IN PLACE. WILL CONTINUE TO MONITOR.
[2020-06-12 16:00] VITALS: BP 152/65
--- NOTE | 2020-06-12 16:07 | NUR ---
ADMINISTERED PRESCRIBED MED FOR 7/10 PRN PAIN ORDERED BY MD. PATIENT TOLERATED WELL. PATIENT WAS ASSISTED W/ TOILETING BY SERVICE OPERATOR, ABLE TO MAKE NEEDS KNOWN. PROVIDED WARM BLANKET PER PATIENT REQUEST. SAFETY MEASURES IN PLACE. WILL CONTINUE TO MONITOR.
[2020-06-12] MEDS: INSULIN LISPRO SLIDING SCALE 100 UNITS/ML VIAL SUBQ PRN ×2 (16:59→20:15)
--- NOTE | 2020-06-12 17:12 | NUR ---
ADMINISTERED PRESCRIBED MEDS AND PRN INSULIN FOR BG 213. PATIENT TOLERATED WELL. MEDICATION EDUCATION PROVIDED. PATIENT VERBALIZED UNDERSTANDING. SAFETY MEASURES IN PLACE. WILL CONTINUE TO MONITOR.
--- NOTE | 2020-06-12 19:17 | NUR ---
ENDORSED PATIENT TO NIGHTSHIFT NURSE FOR CONTINUITY OF CARE.
--- NOTE | 2020-06-12 19:20 | NUR ---
RECEIVED REPORT FROM DINO MARCUS. PT AOX4 ON 4L NC. NO S/S RESPIRATORY DISTRESS. NO C/O PAIN AT THIS TIME. IVSITE R HAND 24G, PATENT INTACT, S.L. PERIWICK IN PLACE TO INTERMITTENT SUCTION. SAFETY MEASURE IN PLACE. CALL LIGHT WITHIN REACH. WILL CONTINUE TO MONITOR
[2020-06-12 20:00] VITALS: BP 108/49
[2020-06-12] MEDS: INSULIN LANTUS 100 UNITS/ML 10 ML VIAL SUBQ SCH (20:16)
--- NOTE | 2020-06-12 20:28 | NUR ---
ADMINISTERED SCHEDULED MEDICATIONS, EDUCATION PROVIDED. HELD COREG DUE TO DECREASED BP, DECREASED HR. GAVE 2 UNITS HUMALOG FOR BLOOD SUGAR 199. NO DISTRESS NOTED. DENIES DISCOMFORT, DENIES SOB. BED IN LOW POSITION. CALL LIGHT WITHIN REACH. WILL CONTINUE TO MONITOR
--- NOTE | 2020-06-12 22:25 | NUR ---
PT ASLEEP IN BED. RESPIRATIONS EVEN UNLABORED. NO DISTRESS NOTED. SAFETY MEASURES IN PLACE. CALL LIGHT WITHIN REACH. WILL CONTINUE TO MONITOR
[2020-06-13] VITALS: BP 132/62
[2020-06-13] MEDS: MORPHINE SULFATE 2 MG/ML SYR IVP PRN ×6 (00:36→22:06)
--- NOTE | 2020-06-13 00:45 | NUR ---
PRN MORPHINE GIVEN FOR C/O SEVERE GENERALIZED PAIN. NO DISTRESS NOTED. SAFETY MEASURES IN PLACE. CALL LIGHT WITHIN REACH. WILL CONTINUE TO MONITOR
--- NOTE | 2020-06-13 03:20 | NUR ---
PT ASLEEP IN BED. RESPIRATIONS EVEN UNLABORED. NO DISTRESS NOTED. SAFETY MEASURES IN PLACE. CALL LIGHT WITHIN REACH. WILL CONTINUE TO MONITOR
[2020-06-13 04:00] VITALS: BP 141/74
--- NOTE | 2020-06-13 05:03 | NUR ---
PRN MORPHINE GIVEN FOR C/O SEVERE GENERALIZED PAIN. NO DISTRESS NOTED. SAFETY MEASURES IN PLACE. CALL LIGHT WITHIN REACH. WILL CONTINUE TO MONITOR
[2020-06-13] MEDS: LEVOTHYROXINE 0.05 MG TAB PO SCH (05:37)
[2020-06-13] MEDS: BLOOD GLUCOSE MONITORING 1 DEV DEV FS SCH ×4 (05:44→21:55)
[2020-06-13] MEDS: INSULIN LISPRO SLIDING SCALE 100 UNITS/ML VIAL SUBQ PRN ×3 (06:06→21:58)
--- NOTE | 2020-06-13 06:09 | NUR ---
SCHEDULED MEDICATION GIVEN, EDUCATION PROVIDED. 8 UNITS INSULIN SUBQ GIVEN FOR BLOOD SUGAR 301. NO DISTRESS NOTED. CALL LIGHT WITHIN REACH. WILL CONTINUE TO MONITOR
--- NOTE | 2020-06-13 07:44 | NUR ---
ENDORSED PATIENT TO DAY RN FOR CONTINUITY OF CARE. PATIENT IS IN STABLE CONDITION
--- NOTE | 2020-06-13 07:46 | NUR ---
RECEIVED REPORT FROM NIGHT NURSE PT IS AAOX4 ON 4LPM NC OXYGEN SATURATION AT 100%, BEDBOUND SKIN INTACT IV INTACT ON RIGHT HAND SALINE LOCK, ON 24 HOUR URINE TEST STARTED YESTERDAY AT 1600. LAST BOWEL MOVEMENT YESTERDAY. SAFETY MEASURES IN PLACE AND CALL LIGHT WITHIN REACH. WILL CONTINUE TO MONITOR.
[2020-06-13 08:00] VITALS: BP 137/70
[2020-06-13] MEDS: SUCRALFATE 1 GM TAB PO SCH ×4 (08:18→21:52)
[2020-06-13] MEDS: carvediloL 12.5 MG TAB PO SCH ×2 (08:19→21:00)
[2020-06-13] MEDS: amLODIPine 5 MG TAB PO SCH (08:19)
[2020-06-13] MEDS: POLYETHYLENE GLYCOL 17 GM/PKT PO SCH (08:19)
[2020-06-13] MEDS: LACTULOSE 20 GM/30 ML UDC PO SCH (08:20)
--- NOTE | 2020-06-13 08:20 | NUR ---
SCHEDULED MEDICATION GIVEN PATIENT TOLERATED WELL CHECK VITAL SIGNS PRIOR TO MEDICATION BP 137/70 OH 58 AND PATIENT COMPLAINS OF PAIN 10/10 PAIN MEDICATION GIVEN.
--- NOTE | 2020-06-13 11:48 | NUR ---
BLOOD SUGAR CHECK 120 MG/DL NO INSULIN COVERAGE.
[2020-06-13 11:51] LABS: ANION GAP 7.5 (8-16); CARBON DIOXIDE 28.3 mmol/L (21-32); CHLORIDE 107 mmol/L (98-107); CREATININE 2.9 mg/dL (0.6-1.3); GLUCOSE 140 mg/dL (74-106); POTASSIUM 4.8 mmol/L (3.5-5.1); SODIUM SERUM 138 mmol/L (136-145); UREA NITROGEN, BLOOD 54 mg/dL (7-18)
[2020-06-13 11:57] LABS: BASOPHILS % (AUTO) 0.6 % (0.0-2.0); EOSINOPHILS # (AUTO) 0.3 K/uL (0-0.4); LYMPHOCYTES # (AUTO) 0.6 K/uL (2.5-16.5); MONOCYTES # (AUTO) 0.5 K/uL (0.8-1.0)
[2020-06-13 12:00] VITALS: BP 135/67
--- NOTE | 2020-06-13 12:20 | NUR ---
Discharge Planning: SINGE MACHINE OPERATOR placed call to pt's son, Evin ([phone]); Evin states that he spoke to the earlier today; Evin states that Brother Quang is looking for a hospice agency that can accept the patient with Epogen. Evin states that he is hoping to get the patient to a facility with hospice that will allow Epogen or the patient will go home to the other son's house with a nurse who can administer the Epogen. Evin states that he was told by the physician that the pt's kidneys need to also improve before pt can be discharged. SINGE MACHINE OPERATOR will continue to assist with DC plans as needed. Addendum: 06/13/20 at 1429 by Devora Davila DC LINE DANCER: RECEIVED A PHONE CALL FROM PATIENT'S SON EVIN REGARDING WISHES FOR HIS MOTHER. HE STATED THAT HIMSELF AND FAMILY DOES NOT WANT HOSPICE AT THIS TIME. HE WANTED INFORMATION ABOUT HOME HEALTH Addendum: 06/13/20 at 1435 by Devora Davila CM DC CAR SPOKE TO SINDY AT [facility] THEY ARE ABLE TO PROVIDE PATIENT THE EPOGEN. Addendum: 06/14/20 at 1004 by Devora Davila CM DC LINE DANCER: JONATHAN SPOKE TO PATIENTS SON EVIN REGARDING PLANS OF DC TODAY. FAMILY IS AGREEABLE TO PATIENT GOING TO SNF. FAXED PACKET TO [facility], PER RITCHIE THEY ARE ABLE TO ACCEPT PATIENT ROOM [address] SEWELL. Addendum: 06/14/20 at 1005 by Devora Davila CM DC LINE DANCER: SPOKE TO SON EVIN TO NOTIFY HIM THAT [facility] IS ABLE TO ACCEPT AND PLAN OF DC IS FOR TODAY. HE IS AGREEABLE. Addendum: 06/14/20 at 1210 by Devora Davila CM JOSE LUIS YOON: PATIENT WILL GO TO ROOM [address] UNDER DR[address] SEWELL. SPOKE TO JONATHAN ROSS AT [facility] SHE PROVIDED AUTH FOR TRANSPORTATION [id number] AND AUTH FOR SNF [id number]. SHE ALSO PROVIDED AUTH FOR NEPHRO FOLLOW UP WITH [facility] AUTH [id number]. CALLED OFFICE TO SCHEDULE APPOINTMENT THEY NEED HARD COPY OF AUTH FIRST BEFORE THEY ARE ABLE TO SCHEDULE Addendum: 06/14/20 at 1318 by Devora Davila CM JOSE LUIS YOON SCHEDULED PATIENT AN APPOINTMENT WITH FACING MACHINE OPERATOR DR. JON [phone]. APPOINTMENT IS ON 06/26/2020 AT 3:15PM. [address], [address] [place], [place]
--- NOTE | 2020-06-13 12:29 | NUR ---
TITRATED OXYGEN LEVEL TO 2LPM VIA NASAL CANNULA. DR JON AWARE
--- NOTE | 2020-06-13 12:43 | NUR ---
MEDICATION DUE GIVEN PT TOLERATED WELL
[2020-06-13 12:46] LABS: EOSINOPHILS % (AUTO) 6.3 % (0.0-4.0); HEMATOCRIT 22.5 % (36-48); LYMPHOCYTES % (AUTO) 12.4 % (20.5-51.1); MEAN CORPUSCULAR HEMOGLOBIN 29 pg (27-31); MEAN CORPUSCULAR HGB CONC 31 g/dL (33-37); MEAN CORPUSCULAR VOLUME 93.7 fL (80-94); MONOCYTES % (AUTO) 10.1 % (1.7-9.3); NEUTROPHILS # (AUTO) 3.6 K/uL (1.8-7.7); NEUTROPHILS % (AUTO) 70.6 % (42.2-75.2); PLATELET COUNT (AUTO) 207 K/uL (140-450); RED CELL DISTRIBUTION WIDTH 19.6 % (11.6-13.7)
[2020-06-13 12:50] LABS: HEMOGLOBIN 6.9 g/dL (12.0-16.0)
--- NOTE | 2020-06-13 12:51 | NUR ---
RECEIVED REPORT FROM LAB PT HEMOGLOBIN 6.[address] KHAN AWARE.
[2020-06-13 12:52] LABS: WHITE BLOOD COUNT (AUTO) 5.1 K/uL (4.8-10.8)
--- NOTE | 2020-06-13 13:31 | NUR ---
COMPLAINS OF GENERALIZED BODY PAIN 12/16 CHECK VITAL SIGNS PRIOR TO MEDICATION BP 136/60 HI 60.
[2020-06-13 16:00] VITALS: BP 149/54
--- NOTE | 2020-06-13 16:00 | NUR ---
24 HOUR URINE COLLECTION COMPLETED SENT TO LAB.
--- NOTE | 2020-06-13 17:34 | NUR ---
MEDICATION DUE GIVEN AND PAIN MEDICATION CHECK VITAL SIGNS BP 149/54 OR 54
--- NOTE | 2020-06-13 19:24 | NUR ---
ENDORSED TO NIGHT NURSE FOR CONTINUITY OF CARE. PT IS STABLE.
--- NOTE | 2020-06-13 19:47 | NUR ---
RECEIVED TRANSFER OF CARE REPORT FROM AM RN FOR CONTINUATION OF CARRE. PT FOUND AWAKE RESTING IN SEMI-DOTY'S POSITION IN BED. PT STATES NO DISTRESS AND NO MEDICAL COMPLAINTS. PT HAS VISIBLE EQUAL RISE AND FALL UPON RESPIRATION. BED LOCKED IN LOWEST POSITION WITH 2 SIDE RAILS UP FOR SAFETY AND CALL LIGHT WITHIN REACH.
[2020-06-13 20:00] VITALS: BP 138/45
--- NOTE | 2020-06-13 21:19 | NUR ---
PT FOUND AWAKE RESTING IN BED. PT HAS VISIBLE EQUAL RISE AND FALL UPON RESPIRATION. PT STATES NO MEDICAL COMPLAINTS. BED LOCKED IN LOWEST POSITION WITH 2 SIDE RAILS UP FOR SAFETY AND CALL LIGHT WITHIN REACH.
[2020-06-13] MEDS: INSULIN LANTUS 100 UNITS/ML 10 ML VIAL SUBQ SCH (21:58)
--- NOTE | 2020-06-13 23:27 | NUR ---
PT FOUND ASLEEP RESTING IN BED. PT HAS VISIBLE EQUAL RISE AND FALL UPON RESPIRATION. PT HAS NO SIGNS OF DISTRESS. BED LOCKED IN LOWEST POSITION WITH 2 SIDE RAILS UP FOR SAFETY AND CALL LIGHT WITHIN REACH.
[2020-06-14] VITALS: BP 93/51
--- NOTE | 2020-06-14 03:28 | NUR ---
PT FOUND AWAKE RESTING IN BED. PT STATES 10/10 HIP PAIN. PT HAS VISIBLE EQUAL RISE AND FALL UPON RESPIRATION. PT DENIES OTHER MEDICAL COMPLAINTS. BED LOCKED IN LOWEST POSITION WITH 2 SIDE RAILS UP FOR SAFETY AND CALL LIGHT WITHIN REACH.
[2020-06-14] MEDS: MORPHINE SULFATE 2 MG/ML SYR IVP PRN ×3 (03:32→13:22)
[2020-06-14 04:00] VITALS: BP 145/63
[2020-06-14 05:04] LABS: ANION GAP 9.4 (8-16); BASOPHILS % (AUTO) 0.8 % (0.0-2.0); CARBON DIOXIDE 27.3 mmol/L (21-32); CHLORIDE 107 mmol/L (98-107); CREATININE 2.8 mg/dL (0.6-1.3); EOSINOPHILS # (AUTO) 0.4 K/uL (0-0.4); EOSINOPHILS % (AUTO) 7.3 % (0.0-4.0); GLUCOSE 102 mg/dL (74-106); HEMATOCRIT 20.3 % (36-48); LYMPHOCYTES # (AUTO) 0.9 K/uL (2.5-16.5); MEAN CORPUSCULAR HEMOGLOBIN 29 pg (27-31); MEAN CORPUSCULAR HGB CONC 31 g/dL (33-37); MEAN CORPUSCULAR VOLUME 91.7 fL (80-94); MONOCYTES # (AUTO) 0.6 K/uL (0.8-1.0); MONOCYTES % (AUTO) 10.2 % (1.7-9.3); NEUTROPHILS # (AUTO) 3.5 K/uL (1.8-7.7); NEUTROPHILS % (AUTO) 65.7 % (42.2-75.2); PLATELET COUNT (AUTO) 182 K/uL (140-450); POTASSIUM 4.7 mmol/L (3.5-5.1); RED BLOOD CELL COUNT(AUTO) 2.22 MIL/uL (4.20-5.40); SODIUM SERUM 139 mmol/L (136-145); UREA NITROGEN, BLOOD 55 mg/dL (7-18); WHITE BLOOD COUNT (AUTO) 5.4 K/uL (4.8-10.8)
[2020-06-14] MEDS: LEVOTHYROXINE 0.05 MG TAB PO SCH (06:23)
[2020-06-14] MEDS: BLOOD GLUCOSE MONITORING 1 DEV DEV FS SCH ×2 (06:31→12:20)
[2020-06-14 06:39] LABS: HEMOGLOBIN 6.4 g/dL (12.0-16.0)
--- NOTE | 2020-06-14 07:27 | NUR ---
TRANSFER OF CARE REPORT PROVIDED TO LUZ SHEPPARD.
--- NOTE | 2020-06-14 07:30 | NUR ---
RECEIVED PATIENT FROM NIGHT NURSE. PATIENT IN BED AWAKE AND ALERT. RESP EVEN AND UNLABORED ON ROOM AIR. DENIED OF PAIN AT THIS TIME. NO ACUTE S/S DISTRESS. PATIENT ABLE TO MAKE NEEDS KNOWN. RH 24G, SL. PLAN OF CARE DISCUSSED. PATIENT VERBALIZED UNDERSTANDING. HOB ELEVATED. SAFETY MEASURES IN PLACE. CALL LIGHT WITHIN REACH. WILL CONTINUE TO MONITOR.
[2020-06-14 08:00] VITALS: BP 155/75
[2020-06-14] MEDS ORDERED: EPOETIN ALFA-EPBX 20,000 UNITS/ML VIAL ONE (09:00)
[2020-06-14] MEDS: amLODIPine 5 MG TAB PO SCH (09:02)
[2020-06-14] MEDS: LACTULOSE 20 GM/30 ML UDC PO SCH (09:02)
[2020-06-14] MEDS: carvediloL 12.5 MG TAB PO SCH (09:03)
[2020-06-14] MEDS: SUCRALFATE 1 GM TAB PO SCH ×2 (09:03→12:15)
[2020-06-14] MEDS: EPOETIN ALFA-EPBX 20,000 UNITS/ML VIAL SUBQ SCH (09:05)
[2020-06-14] MEDS: POLYETHYLENE GLYCOL 17 GM/PKT PO SCH (09:05)
--- NOTE | 2020-06-14 09:10 | NUR ---
PATIENT IN BED AWAKE AND ALERT. HOB ELEVATED. MORNING ROUTINE MEDICATIONS GIVEN. MORPHINE PRN GIVEN D/T C/O GENERALIZED PAIN. PATIENT TOLERATED WELL. RESP EVEN AND UNLABORED ON 2LNC. PATIENT ABLE TO MAKE NEEDS KNOWN. PLAN OF CARE DISCUSSED. PATIENT VERBALIZED UNDERSTANDING. CALL LIGHT WITHIN REACH. WILL CONTINUE TO MONITOR.
[2020-06-14] MEDS ORDERED: FURO-570 PO (11:01)
[2020-06-14] MEDS ORDERED: PANT40EC PO (11:02)
[2020-06-14 12:00] VITALS: BP 130/73
[2020-06-14] MEDS: INSULIN LISPRO SLIDING SCALE 100 UNITS/ML VIAL SUBQ PRN (12:23)
--- NOTE | 2020-06-14 12:24 | NUR ---
BLOOD SUGAR 197, INSULIN PROVIDED PER SLIDING SCALE. PATIENT IN BED AWAKE AND ALERT, RESTING. NO NOTED DISTRESS AT THIS TIME. ABLE TO MAKE NEEDS KNOWN. CALL LIGHT WITHIN REACH. WILL CONTINUE TO MONITOR.
[2020-06-14 13:00] VITALS: BP 130/73
--- NOTE | 2020-06-14 13:50 | NUR ---
REPORT GIVEN TO SILVER SOSA [place] [facility]IENT MADE AWARE OF DISCHARGE PENDING TO [facility]. PATIENT VERBALIZED UNDERSTANDING. WILL CONTINUE TO MONITOR.
[2020-06-14 16:00] VITALS: BP 131/65
--- NOTE | 2020-06-14 16:15 | NUR ---
PATIENT DISCHARG[place] [facility] [facility]. PATIENT LEFT WITH ALL PERSONAL BELONGINGS. DISCHARGE INSTRUCTIONS GIVEN, PATIENT VERBALIZED UNDERSTANDING. PNA VACC REFUSED. PATIENT LEFT IN STABLE CONDITION.
[2020-06-14 18:38] LABS: TOTAL VOLUME 24HRS,URINE 300 mL
[2020-06-14 21:53] LABS: CREATININE 2.9 mg/dL (0.6-1.3)
[2020-06-14 21:54] LABS: CREATININE,URINE 88 mg/dL (30-125)
[2020-06-15] MEDS ORDERED: FUROSEMIDE 40 MG TAB PO SCH (09:00)
[2020-06-16] MEDS ORDERED: EPOETIN ALFA-EPBX 20,000 UNITS/ML VIAL SUBQ SCH (09:00)
== END 2020-06-14 16:40 | DRG 393 ==
LOC: MED 21:04 → MTU 05-31 00:28 → OBSVTOIN 06-01 10:40 → MTU 06-10 16:30
PROVIDERS: ADMIT Hospitalist; ATTEND Hospitalist
PROC: 0D568ZZ Destruction of Stomach, Via Natural or Artificial Opening Endoscopic (ICD-10-PCS; 2020-06-01)
PROC: 0DB68ZZ Excision of Stomach, Via Natural or Artificial Opening Endoscopic (ICD-10-PCS; principal; 2020-06-01 16:30)
PROC: 0DBH8ZZ Excision of Cecum, Via Natural or Artificial Opening Endoscopic (ICD-10-PCS; 2020-06-02)
PROC: 0DBP8ZZ Excision of Rectum, Via Natural or Artificial Opening Endoscopic (ICD-10-PCS; 2020-06-02)
DX: K31.7 Polyp of stomach and duodenum (principal); E43 Unspecified severe protein-calorie malnutrition; N18.4 Chronic kidney disease, stage 4 (severe); N17.9 Acute kidney failure, unspecified; E87.1 Hypo-osmolality and hyponatremia; K72.90 Hepatic failure, unspecified without coma; E11.22 Type 2 diabetes mellitus with diabetic chronic kidney disease; K22.8 Other specified diseases of esophagus; I12.9 Hypertensive chronic kidney disease with stage 1 through stage 4 chronic kidney disease, or unspecified chronic kidney disease; I25.10 Atherosclerotic heart disease of native coronary artery without angina pectoris; Z20.822 Contact with and (suspected) exposure to COVID-19; D63.8 Anemia in other chronic diseases classified elsewhere; K63.5 Polyp of colon; K62.1 Rectal polyp; K64.8 Other hemorrhoids; D50.0 Iron deficiency anemia secondary to blood loss (chronic); K74.60 Unspecified cirrhosis of liver; E87.5 Hyperkalemia; R62.7 Adult failure to thrive; E78.5 Hyperlipidemia, unspecified; K29.70 Gastritis, unspecified, without bleeding; Z88.0 Allergy status to penicillin; Z86.73 Personal history of transient ischemic attack (TIA), and cerebral infarction without residual deficits; Z68.21 Body mass index [BMI] 21.0-21.9, adult
CPT/HCPCS: 43239; 45385; 96361; 96374; 99285; G0378; 36415; 70450; 71045; 74018; 76770; 80048; 80053; 81003; 82272; 82575; 82607; 82728; 82746; 82948; 83010; 83540; 83735; 83880; 84100; 84300; 84439; 84443; 84484; 85025; 85045; 85610; 86038; 86803; 87081; 88305; 88312; 88313; 92610; 92700; 93005; C9113; J0885; J1200; J1756; J1815; J1940; J2250; J2270; J2405; J3010; J7030; Q5106

== ENCOUNTER 2020-10-07 20:48 | Emergency (ER) | payer OTHER, SELFPAY ==
[~2020-10-07] VITALS: Ht 160 cm; Wt 56.7 kg
[2020-10-07 20:48] VITALS: BP 203/80
[~2020-10-07 20:48] MED LIST: ALEN70TA85 PO; AMLO5TAB PO; ATOR40TA PO; BISA-213 RC; CARV25TA PO; CLOP75TA26 PO; FURO-570 PO; HYDR-3233 PO; INSU100S22 SUBQ; LORA10TA19 PO; MAGN400S60 PO; PANT40EC PO; PROC2I SQ; SYN.05 PO; VITB12 PO
--- NOTE | 2020-10-07 20:48 | NUR ---
NOLA MONGE FROM [facility] TAKEN TO BED #2
[2020-10-07] MEDS ORDERED: LEVOFLOXACIN 500 MG/D5W PREMIX 100 ML IV ONE (21:00)
[2020-10-07] MEDS ORDERED: NACL 0.9% 1,000 ML IV SCH (21:00)
--- NOTE | 2020-10-07 21:00 | NUR ---
NOLA FROM [facility] FOR ELEVATED BS. PT GIVEN 16 UNITS INSULIN AT FACILITY. ACCUCHECK- 435. IS AWAKE AND ALERT, SKIN WARM AND DRY. ATTACHED TO HEAVY EQUIPMENT OPERATOR APPRENTICE = SR MEDHX- HTN, DM, ASTHMA, CHF ALLX- PCN
[2020-10-07 22:43] LABS: BASOPHILS % (AUTO) 0.4 % (0.0-2.0); EOSINOPHILS # (AUTO) 0.3 K/uL (0-0.4); EOSINOPHILS % (AUTO) 7.5 % (0.0-4.0); HEMATOCRIT 31.3 % (36-48); HEMOGLOBIN 9.8 g/dL (12.0-16.0); LYMPHOCYTES # (AUTO) 0.5 K/uL (2.5-16.5); LYMPHOCYTES % (AUTO) 10.8 % (20.5-51.1); MEAN CORPUSCULAR HEMOGLOBIN 24 pg (27-31); MEAN CORPUSCULAR HGB CONC 31 g/dL (33-37); MEAN CORPUSCULAR VOLUME 77.6 fL (80-94); MONOCYTES # (AUTO) 0.3 K/uL (0.8-1.0); NEUTROPHILS # (AUTO) 3.5 K/uL (1.8-7.7); NEUTROPHILS % (AUTO) 74.3 % (42.2-75.2); PLATELET COUNT (AUTO) 192 K/uL (140-450); RED BLOOD CELL COUNT(AUTO) 4.04 MIL/uL (4.20-5.40); RED CELL DISTRIBUTION WIDTH 18.9 % (11.6-13.7); WHITE BLOOD COUNT (AUTO) 4.6 K/uL (4.8-10.8)
--- NOTE | 2020-10-07 22:55 | NUR ---
STRAIGHT CATHED FOR UA. BRENT SWAB OBTAINED AND SENT TO LAB
[2020-10-07 22:58] LABS: ALBUMIN 2.6 g/dL (3.4-5.0); ANION GAP 9.7 (8-16); ASPARTATE AMINOTRANSFERASE 12 U/L (15-37); CARBON DIOXIDE 29.7 mmol/L (21-32); CHLORIDE 102 mmol/L (98-107); CREATININE 3.8 mg/dL (0.6-1.3); POTASSIUM 4.4 mmol/L (3.5-5.1); SODIUM SERUM 137 mmol/L (136-145); TOTAL BILIRUBIN 0.2 mg/dL (0.0-1.0)
[2020-10-07 23:02] LABS: GLUCOSE 437 mg/dL (74-106)
[2020-10-07 23:03] LABS: UREA NITROGEN, BLOOD 75 mg/dL (7-18)
--- NOTE | 2020-10-07 23:39 | NUR ---
INCONTINENT, DIAPER AND LINENS CHANGED. POSITIONED FOR COMFORT
[2020-10-07] MEDS ORDERED: INSULIN REGULAR, HUMAN 100 UNIT/ML VIAL IVP ONE (23:45)
[2020-10-07] MEDS ORDERED: KETOROLAC 30 MG/ML VIAL IVP ONE (23:45)
--- NOTE | 2020-10-08 00:05 | NUR ---
ASSISTED WITH REPOSITIONING. WATER GIVEN
[2020-10-08 00:27] LABS: APPEARANCE,URINE CLEAR (CLEAR); BILIRUBIN,URINE NEGATIVE (NEGATIVE); BLOOD, URINE TRACE-I (NEGATIVE); COLOR,URINE YELLOW (YELLOW); LEUKOCYTE ESTERASE ,URINE NEGATIVE (NEGATIVE); NITRITE, URINE NEGATIVE (NEGATIVE); UGLUCOSE 3+ (NEGATIVE)
--- NOTE | 2020-10-08 00:51 | NUR ---
BP ELEVATED. DT. SENIA LIRIANO
[2020-10-08 00:55] LABS: RBC,URINE 0-5 /HPF (0-5); WBC,URINE 0-5 /HPF (0-5)
[2020-10-08] MEDS ORDERED: ENALAPRILAT 2.5 MG/2 ML VIAL IVP ONE (00:55)
--- NOTE | 2020-10-08 01:43 | NUR ---
COVERING PRIMARY RN FOR LUNCH RELIEF. PT SOILED. CHANDA-CARE PROVIDED WITH BRIEF CHANGE. PT PROVIDED WARM BLANKET FOR COMFORT. ALL NEEDS MET AT THIS TIME.
--- NOTE | 2020-10-08 02:48 | NUR ---
AWAKE, DIAPER CHAMGED. PT CLEANED, ASSISTED WITH REPOSITIONING
--- NOTE | 2020-10-08 04:08 | NUR ---
CALLING OUT, IS VERY RESTLESS. ASSISTED WITH REPOSITIONING
--- NOTE | 2020-10-08 04:15 | NUR ---
DIAPER CHANGED WITH CHANDA CARE, REPOSITIONED
--- NOTE | 2020-10-08 07:10 | NUR ---
REPORT AND CONTINUATION OF CARE RECIEVED FROM SILVER WICK.
--- NOTE | 2020-10-08 07:14 | NUR ---
PATIENT OBSERVED IN BED AWAKE, DIAPER CHANGED ASSISTED WITH CHANDA CARE. VS TAKEN & RECORDED.
--- NOTE | 2020-10-08 07:15 | NUR ---
PT NOTED WITH IV ABX GIVEN W/O BLOOD CULTURE COLLECTION.
--- NOTE | 2020-10-08 08:04 | NUR ---
ACCUCHECK TAKEN, BLOOD GLUCOSE 344.
--- NOTE | 2020-10-08 08:43 | NUR ---
PATIENT REPOSITIONED IN BED, CURRENTLY RESTING AT THIS TIME. RR EVEN AND UNLABORED.
--- NOTE | 2020-10-08 09:26 | NUR ---
PATIENT CURRENTLY IN BED RESTING, RR EVEN AND UNLABORED. VS TAKEN AND DOCUMENTED.
--- NOTE | 2020-10-08 10:05 | NUR ---
PT VS TAKEN, BP ELEVATED, DR TRAVIS MADE AWARE. NEW ORDERS RECIEVED.
--- NOTE | 2020-10-08 10:06 | NUR ---
PT REPOSITIONED IN BED, PT DEPENDANT CHANGED, PT CLEAN AND DRY.
[2020-10-08] MEDS ORDERED: lisinopriL 20 MG TAB PO ONE (10:15)
[2020-10-08] MEDS ORDERED: METOPROLOL 25 MG TAB PO ONE (10:15)
[2020-10-08] MEDS ORDERED: FUROSEMIDE 40 MG TAB PO ONE (10:15)
--- NOTE | 2020-10-08 11:29 | NUR ---
PT CURRENTLY RESTING IN BED, RR EVEN AND UNLABORED.
--- NOTE | 2020-10-08 11:37 | NUR ---
PT DEPENDANT CHANGED, PT CLEAN AND DRY.
--- NOTE | 2020-10-08 12:35 | NUR ---
PT REPOSITIONED, DEPENDANT CHANGED. PT CLEAN AND DRY.
--- NOTE | 2020-10-08 12:43 | NUR ---
VS TAKEN, BP ELEVATED. MADE AWARE.
--- NOTE | 2020-10-08 13:03 | NUR ---
COLEEN TAKEN, BS 486. MADE AWARE.
[2020-10-08] MEDS ORDERED: MORPHINE SULFATE 2 MG/ML SYR IVP ONE (13:15)
[2020-10-08] MEDS ORDERED: ONDANSETRON 4 MG/2 ML VIAL IVP ONE (13:15)
[2020-10-08] MEDS ORDERED: INSULIN REGULAR, HUMAN 100 UNIT/ML VIAL IVP ONE (13:15)
[2020-10-08] MEDS ORDERED: LABETALOL 100 MG/20 ML VIAL IVP ONE (13:15)
--- NOTE | 2020-10-08 14:31 | NUR ---
ACCHERMES DUNHAM, BS 418 MD OSUNA MADE AWARE.
--- NOTE | 2020-10-08 14:38 | NUR ---
PATIENT CURRENTLY RESTING IN BED, BP 143/58, HR 76, O2 SAT: 98%, RR 16. DENIES PAIN. RR EVEN AND UNLABORED.
--- NOTE | 2020-10-08 15:44 | NUR ---
TRANSPORTATION HAS BEEN CONTACTED AND SCHEDULED TO SEN[employer] REPRESENTATIVE PATIENT. TRANSPORTATION BRAND
--- NOTE | 2020-10-08 16:29 | NUR ---
PATIENT RESTING AT THIS TIME, VSS. RR EVEN AND UNLABORED.
--- NOTE | 2020-10-08 17:17 | NUR ---
TRANSPORTATION CALLED BACK
--- NOTE | 2020-10-08 18:30 | NUR ---
Patient discharged with v/s stable. Written and verbal after care instructions given and explained. Patient verbalized understanding. Wheel Chair Assisted with TRANSPORT CREW to [facility]. All questions addressed prior to discharge. Advised to follow up with PMD.
[2020-10-08 18:47] VITALS: BP 138/56
== END 2020-10-08 18:30 | disposition home or self-care (01) ==
LOC: MED 20:48
DX: R73.9 Hyperglycemia, unspecified (principal); Z20.822 Contact with and (suspected) exposure to COVID-19; J45.909 Unspecified asthma, uncomplicated; E11.9 Type 2 diabetes mellitus without complications; I10 Essential (primary) hypertension; Z79.899 Other long term (current) drug therapy; Z98.890 Other specified postprocedural states; Z79.4 Long term (current) use of insulin; Z88.0 Allergy status to penicillin
CPT/HCPCS: 36415; 71045; 80053; 81001; 83605; 83880; 84484; 85025; 87086; 87426; 93005; 96365; 96372; 96375; 99285; J1815; J1885; J1956; J2270; J2405; J3490

== ENCOUNTER 2023-02-05 18:18 | Inpatient (IN) | payer OTHER ==
[~2023-02-05] VITALS: Ht 160 cm; Wt 57.6 kg
[~2023-02-05 18:18] MED LIST changes: +CLOP-68 PO; -CLOP75TA26 PO
[2023-02-05 18:48] VITALS: BP 137/72; PULSE 80; RESP 17; TEMP 98; O2SAT 92
[2023-02-05] MEDS ORDERED: ONDANSETRON 4 MG/2 ML VIAL IVP ONE (19:20)
[2023-02-05] MEDS ORDERED: PANTOPRAZOLE 40 MG INJ VIAL IVP ONE (19:20)
[2023-02-05] MEDS ORDERED: cefTRIAXone 1,000 MG VIAL ONE (19:48)
[2023-02-05 19:54] LABS: BASOPHILS # (AUTO) 0.1 K/uL (0.00-0.22); BASOPHILS % (AUTO) 0.7 % (0.0-2.0); EOSINOPHILS # (AUTO) 0.4 K/uL (0-0.4); EOSINOPHILS % (AUTO) 4.9 % (0.0-4.0); HEMATOCRIT 34.7 % (36-48); HEMOGLOBIN 11.3 g/dL (12.0-16.0); LYMPHOCYTES # (AUTO) 0.6 K/uL (2.5-16.5); LYMPHOCYTES % (AUTO) 7.1 % (20.5-51.1); MEAN CORPUSCULAR HEMOGLOBIN 28 pg (27-31); MEAN CORPUSCULAR HGB CONC 33 g/dL (33-37); MEAN CORPUSCULAR VOLUME 86.2 fL (80-94); MONOCYTES # (AUTO) 0.5 K/uL (0.8-1.0); NEUTROPHILS # (AUTO) 7.5 K/uL (1.8-7.7); NEUTROPHILS % (AUTO) 82.3 % (42.2-75.2); PLATELET COUNT (AUTO) 230 K/uL (140-450); RED BLOOD CELL COUNT(AUTO) 4.03 MIL/uL (4.20-5.40); RED CELL DISTRIBUTION WIDTH 16.1 % (11.6-13.7); WHITE BLOOD COUNT (AUTO) 9.1 K/uL (4.8-10.8)
[2023-02-05 20:15] LABS: INR 1.03 (0.8-1.2); PARTIAL THROMBOPLASTIN TIME 29.2 secs (22-35.6); PROTHROMBIN TIME 10.8 secs (10.8-13.4)
[2023-02-05 20:18] LABS: ALANINE AMINOTRANSFERASE 14 U/L (12-78); ALBUMIN 2.4 g/dL (3.4-5.0); ALKALINE PHOSPHATASE 86 U/L (50-136); ASPARTATE AMINOTRANSFERASE 22 U/L (15-37); CALCIUM 7.6 mg/dL (8.5-10.1); CARBON DIOXIDE 32.5 mmol/L (21-32); CHLORIDE 101 mmol/L (98-107); GLUCOSE 93 mg/dL (74-106); LIPASE 28 U/L (16-77); POTASSIUM 3.5 mmol/L (3.5-5.1); SODIUM SERUM 140 mmol/L (136-145); TOTAL BILIRUBIN 0.4 mg/dL (0.0-1.0); TOTAL PROTEIN, SERUM 6.6 g/dL (6.4-8.2); UREA NITROGEN, BLOOD 14 mg/dL (7-18)
[2023-02-05 21:03] LABS: LACTIC ACID 0.6 mmol/L (0.4-2.0)
[2023-02-05] MEDS ORDERED: guaiFENesin DM 200/20 MG-10 ML 10 ML UDC PO PRN (21:20)
[2023-02-05] MEDS ORDERED: DOCUSATE SODIUM 100 MG GELCAP PO PRN (21:20)
[2023-02-05] MEDS ORDERED: HYDROcodone/APAP 7.5/325 MG 1 TAB PO PRN (21:20)
[2023-02-05] MEDS ORDERED: ZOLPIDEM 5 MG TAB PO PRN (21:20)
[2023-02-05] MEDS ORDERED: ONDANSETRON 4 MG/2 ML VIAL IM/IVP PRN (21:20)
[2023-02-05] MEDS ORDERED: POTASSIUM CHLORIDE 10 MEQ TABER PO PRN (21:20)
[2023-02-05] MEDS ORDERED: DEXTROSE 50% 50 ML SYR IVP PRN (21:55)
[2023-02-05] MEDS: DEXT 5% / NACL 0.9% 500 ML IV SCH (23:50)
[2023-02-06 01:50] VITALS: PULSE 75; RESP 18; O2SAT 98
[2023-02-06 04:00] VITALS: BP 141/72; PULSE 73; PULSE 75; RESP 18; TEMP 97.5; O2SAT 98
[2023-02-06] MEDS: BLOOD GLUCOSE MONITORING 1 DEV DEV FS SCH ×4 (06:39→20:28)
[2023-02-06 07:20] LABS: BASOPHILS % (AUTO) 0.6 % (0.0-2.0); EOSINOPHILS # (AUTO) 0.4 K/uL (0-0.4); EOSINOPHILS % (AUTO) 8.3 % (0.0-4.0); HEMATOCRIT 34.1 % (36-48); HEMOGLOBIN 11.1 g/dL (12.0-16.0); LYMPHOCYTES % (AUTO) 18.8 % (20.5-51.1); MEAN CORPUSCULAR HEMOGLOBIN 28 pg (27-31); MEAN CORPUSCULAR HGB CONC 32 g/dL (33-37); MONOCYTES # (AUTO) 0.5 K/uL (0.8-1.0); MONOCYTES % (AUTO) 10.4 % (1.7-9.3); NEUTROPHILS # (AUTO) 3.2 K/uL (1.8-7.7); NEUTROPHILS % (AUTO) 61.9 % (42.2-75.2); PLATELET COUNT (AUTO) 208 K/uL (140-450); RED BLOOD CELL COUNT(AUTO) 3.96 MIL/uL (4.20-5.40); RED CELL DISTRIBUTION WIDTH 16.4 % (11.6-13.7); WHITE BLOOD COUNT (AUTO) 5.2 K/uL (4.8-10.8)
[2023-02-06 08:00] VITALS: BP 161/91; PULSE 75; PULSE 78; PULSE 80; RESP 18; TEMP 97.3; O2SAT 98
[2023-02-06 08:15] LABS: CALCIUM 7.6 mg/dL (8.5-10.1); CARBON DIOXIDE 30.5 mmol/L (21-32); CHLORIDE 103 mmol/L (98-107); GLUCOSE 105 mg/dL (74-106); POTASSIUM 3.5 mmol/L (3.5-5.1); SODIUM SERUM 142 mmol/L (136-145); UREA NITROGEN, BLOOD 17 mg/dL (7-18)
[2023-02-06 08:17] LABS: CREATININE 4.7 mg/dL (0.6-1.3)
[2023-02-06 08:21] LABS: ALANINE AMINOTRANSFERASE 10 U/L (12-78); ALBUMIN 2.2 g/dL (3.4-5.0); ALKALINE PHOSPHATASE 78 U/L (50-136); ASPARTATE AMINOTRANSFERASE 17 U/L (15-37); TOTAL BILIRUBIN 0.4 mg/dL (0.0-1.0); TOTAL PROTEIN, SERUM 6.3 g/dL (6.4-8.2)
[2023-02-06] MEDS ORDERED: PANTOPRAZOLE 40 MG TABEC PO SCH ×2 (09:00)
[2023-02-06] MEDS: carvediloL 12.5 MG TAB PO SCH ×2 (09:51→20:28)
[2023-02-06] MEDS: LORATADINE 10 MG TAB PO SCH (09:51)
[2023-02-06] MEDS: CLOPIDOGREL 75 MG TAB PO SCH (09:51)
[2023-02-06] MEDS: LEVOTHYROXINE 0.05 MG TAB PO SCH (09:51)
[2023-02-06] MEDS: hydrALAZINE 10 MG TAB PO SCH ×3 (09:52→17:33)
[2023-02-06] MEDS: amLODIPine 5 MG TAB PO SCH (09:52)
[2023-02-06] MEDS: DEXT 5% / NACL 0.9% 500 ML IV SCH ×2 (10:25→22:55)
[2023-02-06 12:00] VITALS: BP 150/67; PULSE 75; PULSE 80; RESP 18; TEMP 98.1; O2SAT 98
[2023-02-06] MEDS: PANTOPRAZOLE 40 MG INJ VIAL IVP SCH (12:12)
[2023-02-06 16:00] VITALS: BP 160/66; PULSE 76; PULSE 77; RESP 18; TEMP 97.5; O2SAT 98
[2023-02-06 20:00] VITALS: BP 153/76; PULSE 78; PULSE 80; PULSE 85; RESP 18; TEMP 98.2; O2SAT 98
[2023-02-06] MEDS: ATORVASTATIN 20 MG TAB PO SCH (20:29)
[2023-02-06] MEDS: ACETAMINOPHEN 325 MG TAB PO PRN (20:30)
[2023-02-07] VITALS (9 sets, daily range): BP systolic 134–180; BP diastolic 66–88; PULSE 72–85; RESP 18; TEMP 97.1–98.4; O2SAT 98–100
[2023-02-07] MEDS: ACETAMINOPHEN 325 MG TAB PO PRN ×3 (02:18→16:14)
[2023-02-07] MEDS: BLOOD GLUCOSE MONITORING 1 DEV DEV FS SCH ×4 (06:38→20:37)
[2023-02-07 07:31] LABS: BASOPHILS % (AUTO) 0.8 % (0.0-2.0); EOSINOPHILS # (AUTO) 0.5 K/uL (0-0.4); HEMATOCRIT 32.3 % (36-48); HEMOGLOBIN 10.5 g/dL (12.0-16.0); LYMPHOCYTES # (AUTO) 0.8 K/uL (2.5-16.5); LYMPHOCYTES % (AUTO) 14.6 % (20.5-51.1); MEAN CORPUSCULAR HEMOGLOBIN 28 pg (27-31); MEAN CORPUSCULAR HGB CONC 33 g/dL (33-37); MEAN CORPUSCULAR VOLUME 87.1 fL (80-94); MONOCYTES # (AUTO) 0.5 K/uL (0.8-1.0); MONOCYTES % (AUTO) 9.1 % (1.7-9.3); NEUTROPHILS # (AUTO) 3.5 K/uL (1.8-7.7); NEUTROPHILS % (AUTO) 66.5 % (42.2-75.2); PLATELET COUNT (AUTO) 219 K/uL (140-450); RED BLOOD CELL COUNT(AUTO) 3.71 MIL/uL (4.20-5.40); RED CELL DISTRIBUTION WIDTH 16.2 % (11.6-13.7); WHITE BLOOD COUNT (AUTO) 5.2 K/uL (4.8-10.8)
[2023-02-07 07:43] LABS: ALANINE AMINOTRANSFERASE 8 U/L (12-78); ALBUMIN 2.5 g/dL (3.4-5.0); ALKALINE PHOSPHATASE 79 U/L (50-136); ANION GAP 13.7 (8-16); ASPARTATE AMINOTRANSFERASE 20 U/L (15-37); CALCIUM 7.9 mg/dL (8.5-10.1); CARBON DIOXIDE 29.4 mmol/L (21-32); CHLORIDE 103 mmol/L (98-107); GLUCOSE 154 mg/dL (74-106); POTASSIUM 4.1 mmol/L (3.5-5.1); SODIUM SERUM 142 mmol/L (136-145); TOTAL BILIRUBIN 0.4 mg/dL (0.0-1.0); TOTAL PROTEIN, SERUM 6.3 g/dL (6.4-8.2); UREA NITROGEN, BLOOD 23 mg/dL (7-18)
[2023-02-07 07:48] LABS: CREATININE 6.2 mg/dL (0.6-1.3)
[2023-02-07] MEDS ORDERED: FUROSEMIDE 40 MG TAB PO SCH (09:00)
[2023-02-07] MEDS: hydrALAZINE 10 MG TAB PO SCH ×3 (10:09→17:21)
[2023-02-07] MEDS: LEVOTHYROXINE 0.05 MG TAB PO SCH (10:11)
[2023-02-07] MEDS: LORATADINE 10 MG TAB PO SCH (10:11)
[2023-02-07] MEDS: amLODIPine 5 MG TAB PO SCH (10:12)
[2023-02-07] MEDS: carvediloL 12.5 MG TAB PO SCH ×2 (10:12→21:43)
[2023-02-07] MEDS: CLOPIDOGREL 75 MG TAB PO SCH (10:13)
[2023-02-07] MEDS: PANTOPRAZOLE 40 MG INJ VIAL IVP SCH ×2 (10:22→16:47)
[2023-02-07] MEDS: DEXT 5% / NACL 0.9% 500 ML IV SCH ×2 (11:25→23:00)
[2023-02-07] MEDS: INSULIN LISPRO SLIDING SCALE 100 UNITS/ML VIAL SUBQ PRN ×2 (12:08→20:38)
[2023-02-07] MEDS: ATORVASTATIN 20 MG TAB PO SCH (20:37)
[2023-02-08] VITALS (7 sets, daily range): BP systolic 141–159; BP diastolic 61–88; PULSE 71–86; RESP 18; TEMP 97.4–97.8; O2SAT 95–100
[2023-02-08] MEDS: BLOOD GLUCOSE MONITORING 1 DEV DEV FS SCH ×2 (06:35→11:30)
[2023-02-08] MEDS: PANTOPRAZOLE 40 MG INJ VIAL IVP SCH (06:36)
[2023-02-08 07:40] LABS: BASOPHILS % (AUTO) 0.8 % (0.0-2.0); EOSINOPHILS # (AUTO) 0.5 K/uL (0-0.4); EOSINOPHILS % (AUTO) 10.9 % (0.0-4.0); HEMATOCRIT 36.1 % (36-48); HEMOGLOBIN 11.6 g/dL (12.0-16.0); LYMPHOCYTES # (AUTO) 0.7 K/uL (2.5-16.5); LYMPHOCYTES % (AUTO) 12.9 % (20.5-51.1); MEAN CORPUSCULAR HEMOGLOBIN 28 pg (27-31); MEAN CORPUSCULAR HGB CONC 32 g/dL (33-37); MEAN CORPUSCULAR VOLUME 87.3 fL (80-94); MONOCYTES # (AUTO) 0.5 K/uL (0.8-1.0); MONOCYTES % (AUTO) 9.9 % (1.7-9.3); NEUTROPHILS # (AUTO) 3.3 K/uL (1.8-7.7); NEUTROPHILS % (AUTO) 65.5 % (42.2-75.2); PLATELET COUNT (AUTO) 237 K/uL (140-450); RED BLOOD CELL COUNT(AUTO) 4.14 MIL/uL (4.20-5.40); RED CELL DISTRIBUTION WIDTH 16.7 % (11.6-13.7)
[2023-02-08 08:16] LABS: ALANINE AMINOTRANSFERASE 14 U/L (12-78); ALBUMIN 2.7 g/dL (3.4-5.0); ALKALINE PHOSPHATASE 88 U/L (50-136); ANION GAP 14.3 (8-16); ASPARTATE AMINOTRANSFERASE 20 U/L (15-37); CALCIUM 7.9 mg/dL (8.5-10.1); CARBON DIOXIDE 28.4 mmol/L (21-32); CHLORIDE 102 mmol/L (98-107); GLUCOSE 154 mg/dL (74-106); POTASSIUM 3.7 mmol/L (3.5-5.1); SODIUM SERUM 141 mmol/L (136-145); TOTAL BILIRUBIN 0.5 mg/dL (0.0-1.0); TOTAL PROTEIN, SERUM 6.9 g/dL (6.4-8.2); UREA NITROGEN, BLOOD 19 mg/dL (7-18)
[2023-02-08] MEDS ORDERED: LORATADINE 10 MG TAB PO SCH (09:00)
[2023-02-08] MEDS ORDERED: fentaNYL citrate 0.05 MG/ML VIAL ONE (09:23)
[2023-02-08] MEDS ORDERED: MIDAZOLAM 2 MG/2 ML VIAL ONE (09:23)
[2023-02-08] MEDS ORDERED: MIDAZOLAM 2 MG/2 ML VIAL IVP ONE (10:55)
[2023-02-08] MEDS: hydrALAZINE 10 MG TAB PO SCH ×2 (10:58→13:00)
[2023-02-08] MEDS: carvediloL 12.5 MG TAB PO SCH (10:59)
[2023-02-08] MEDS: LEVOTHYROXINE 0.05 MG TAB PO SCH (10:59)
[2023-02-08] MEDS: amLODIPine 5 MG TAB PO SCH (10:59)
[2023-02-08] MEDS: INSULIN LISPRO SLIDING SCALE 100 UNITS/ML VIAL SUBQ PRN (11:32)
== END 2023-02-08 14:35 | DRG 377 ==
LOC: MED 18:18 → MTU 21:23
PROVIDERS: ADMIT Student in an Organized Health Care Education/Training Program; ATTEND Student in an Organized Health Care Education/Training Program
PROC: 5A1D70Z Performance of Urinary Filtration, Intermittent, Less than 6 Hours Per Day (ICD-10-PCS; 2023-02-06)
PROC: 0DJ08ZZ Inspection of Upper Intestinal Tract, Via Natural or Artificial Opening Endoscopic (ICD-10-PCS; principal; 2023-02-08 09:30)
DX: K29.01 Acute gastritis with bleeding (principal); I50.43 Acute on chronic combined systolic (congestive) and diastolic (congestive) heart failure; N18.6 End stage renal disease; I13.2 Hypertensive heart and chronic kidney disease with heart failure and with stage 5 chronic kidney disease, or end stage renal disease; E78.5 Hyperlipidemia, unspecified; K21.9 Gastro-esophageal reflux disease without esophagitis; D63.1 Anemia in chronic kidney disease; B19.20 Unspecified viral hepatitis C without hepatic coma; E03.9 Hypothyroidism, unspecified; K74.60 Unspecified cirrhosis of liver; K31.7 Polyp of stomach and duodenum; Z20.822 Contact with and (suspected) exposure to COVID-19; E11.22 Type 2 diabetes mellitus with diabetic chronic kidney disease; Z99.2 Dependence on renal dialysis; Z86.73 Personal history of transient ischemic attack (TIA), and cerebral infarction without residual deficits; Z88.0 Allergy status to penicillin; Z79.899 Other long term (current) drug therapy
CPT/HCPCS: 36415; 71045; 80053; 82948; 83605; 83690; 84484; 85025; 85610; 85730; 86886; 86900; 86901; 87040; 87081; 87086; 93005; 96365; 96375; 99291; C9113; J0696; J1815; J2250; J2405; J3010; Q0163

== ENCOUNTER 2023-06-03 15:27 | Inpatient (IN) | payer OTHER ==
[~2023-06-03] VITALS: Ht 157.5 cm; Wt 56.7 kg
[2023-06-03 15:35] VITALS: BP 118/58; PULSE 62; RESP 16; TEMP 97.5; O2SAT 98
[2023-06-03 17:13] LABS: BASOPHILS % (AUTO) 0.5 % (0.0-2.0); EOSINOPHILS # (AUTO) 0.1 K/uL (0-0.4); EOSINOPHILS % (AUTO) 2.1 % (0.0-4.0); HEMOGLOBIN 10.6 g/dL (12.0-16.0); LYMPHOCYTES # (AUTO) 0.6 K/uL (2.5-16.5); LYMPHOCYTES % (AUTO) 10.7 % (20.5-51.1); MEAN CORPUSCULAR HEMOGLOBIN 30 pg (27-31); MEAN CORPUSCULAR HGB CONC 33 g/dL (33-37); MEAN CORPUSCULAR VOLUME 91.8 fL (80-94); MONOCYTES # (AUTO) 0.6 K/uL (0.8-1.0); MONOCYTES % (AUTO) 10.7 % (1.7-9.3); NEUTROPHILS # (AUTO) 4.5 K/uL (1.8-7.7); PLATELET COUNT (AUTO) 152 K/uL (140-450); RED BLOOD CELL COUNT(AUTO) 3.49 MIL/uL (4.20-5.40); RED CELL DISTRIBUTION WIDTH 14.7 % (11.6-13.7)
[2023-06-03 17:26] LABS: ALANINE AMINOTRANSFERASE 23 U/L (12-78); ALBUMIN 1.5 g/dL (3.4-5.0); ALKALINE PHOSPHATASE 136 U/L (50-136); ASPARTATE AMINOTRANSFERASE 50 U/L (15-37); BILIRUBIN,DIRECT 0.1 mg/dL (0.0-0.3); LIPASE 11 U/L (16-77); TOTAL BILIRUBIN 0.3 mg/dL (0.0-1.0); TOTAL PROTEIN, SERUM 5.7 g/dL (6.4-8.2)
[2023-06-03 17:57] LABS: ANION GAP 9.2 (8-16); CALCIUM 7.8 mg/dL (8.5-10.1); CARBON DIOXIDE 33.4 mmol/L (21-32); CHLORIDE 97 mmol/L (98-107); CREATININE 3.9 mg/dL (0.6-1.3); GLUCOSE 258 mg/dL (74-106); POTASSIUM 4.6 mmol/L (3.5-5.1); SODIUM SERUM 135 mmol/L (136-145); UREA NITROGEN, BLOOD 17 mg/dL (7-18)
[2023-06-03 18:10] LABS: APPEARANCE,URINE CLOUDY (CLEAR); BILIRUBIN,URINE NEGATIVE (NEGATIVE); BLOOD, URINE TRACE-I (NEGATIVE); COLOR,URINE YELLOW (YELLOW); LEUKOCYTE ESTERASE ,URINE 3+ (NEGATIVE); NITRITE, URINE NEGATIVE (NEGATIVE); PH,URINE 6.5 (5.0-9.0); PROTEIN,URINE 2+ (NEGATIVE); UGLUCOSE NEGATIVE (NEGATIVE); UROBILINOGEN,URINE 0.2 EU/dL (0.2 - 1)
[2023-06-03 18:15] LABS: BACTERIA,URINE 3+ /HPF (None Seen); RBC,URINE 0-5 /HPF (0-5); SQUAMOUS EPITHELIAL CELL,UR 0-3 (FEW) /LPF (0-3 (FEW)); WBC,URINE TOO MANY TO COUNT /HPF (0-5)
[2023-06-03 18:16] LABS: MUCUS,URINE None Seen /LPF (None Seen); TRICHOMONAS,URINE None Seen /HPF (None Seen); YEAST,URINE None Seen /HPF (None Seen)
[2023-06-03] MEDS: CIPROFLOXACIN 400 MG/200ML-D5W 200 ML IV ONE (18:31)
[2023-06-03] MEDS ORDERED: cefTRIAXone 1,000 MG VIAL ONE (19:44)
[2023-06-03 19:49] VITALS: O2SAT 99
[2023-06-03] MEDS ORDERED: GLUC1VIA (20:21)
[2023-06-03] MEDS ORDERED: ROB PO (20:21)
[2023-06-03] MEDS ORDERED: CALC-751 PO (20:21)
[2023-06-03] MEDS ORDERED: MIRABULK PO (20:21)
[2023-06-03] MEDS ORDERED: NITR0.4T2 SL (20:21)
[2023-06-03] MEDS ORDERED: CRAN450T5 PO (20:21)
[2023-06-03] MEDS ORDERED: LOSA-272 PO (20:21)
[2023-06-03] MEDS ORDERED: SENN-72 PO (20:21)
[2023-06-03] MEDS ORDERED: ONDA-188 SL (20:21)
[2023-06-03] MEDS ORDERED: AMLO10TA PO (20:21)
[2023-06-03] MEDS ORDERED: TICA90TA PO (20:21)
[2023-06-03] MEDS ORDERED: GABA100C PO (20:21)
[2023-06-03] MEDS ORDERED: PANT40EC PO (20:21)
[2023-06-03] MEDS ORDERED: DOCU-299 PO (20:21)
[2023-06-03] MEDS ORDERED: CARV25TA PO (20:21)
[2023-06-03] MEDS ORDERED: HYDR-1100 PO (20:21)
[2023-06-03] MEDS ORDERED: MULT-1469 PO (20:21)
[2023-06-03] MEDS ORDERED: BISA-227 PO (20:21)
[2023-06-03] MEDS ORDERED: OSC500 PO (20:21)
[2023-06-03] MEDS ORDERED: [UNRECOGNIZED DRUG - CODE] PO (20:21)
[2023-06-03] MEDS ORDERED: TRAM50TA3 PO (20:21)
[2023-06-03] MEDS ORDERED: SYN.05 PO (20:21)
[2023-06-03] MEDS ORDERED: LACT-103 PO (20:21)
[2023-06-03] MEDS ORDERED: FURO-570 PO (20:21)
[2023-06-03] MEDS ORDERED: DIPH25SG5 PO (20:21)
[2023-06-03] MEDS ORDERED: ASPI-1822 PO (20:21)
[2023-06-03] MEDS ORDERED: CLOP-68 PO (20:21)
[2023-06-03] MEDS ORDERED: ACET-2619 PO (20:21)
[2023-06-03] MEDS ORDERED: MAGN400S60 PO (20:21)
[2023-06-03] MEDS ORDERED: CLON0.1T16 PO (20:21)
[2023-06-03] MEDS ORDERED: SULF-58 PO (20:21)
[2023-06-03] MEDS ORDERED: MONT-72 PO (20:21)
[2023-06-03] MEDS ORDERED: VITB12 PO (20:21)
[2023-06-03 20:50] VITALS: BP 130/45; PULSE 63; RESP 18; TEMP 97; O2SAT 94
[2023-06-03 21:06] VITALS: PULSE 66
[2023-06-03] MEDS: ACETAMINOPHEN EXTRA STRENGTH 500 MG TAB PO PRN (23:47)
[2023-06-04] VITALS (9 sets, daily range): BP systolic 124–150; BP diastolic 55–87; PULSE 63–90; RESP 17–18; TEMP 96.4–98.4; O2SAT 94–98
[2023-06-04 07:01] LABS: BASOPHILS % (AUTO) 0.4 % (0.0-2.0); EOSINOPHILS # (AUTO) 0.2 K/uL (0-0.4); EOSINOPHILS % (AUTO) 2.9 % (0.0-4.0); HEMATOCRIT 33.6 % (36-48); HEMOGLOBIN 11.3 g/dL (12.0-16.0); LYMPHOCYTES # (AUTO) 0.7 K/uL (2.5-16.5); LYMPHOCYTES % (AUTO) 8.7 % (20.5-51.1); MEAN CORPUSCULAR HEMOGLOBIN 31 pg (27-31); MEAN CORPUSCULAR HGB CONC 34 g/dL (33-37); MONOCYTES # (AUTO) 0.7 K/uL (0.8-1.0); MONOCYTES % (AUTO) 9.1 % (1.7-9.3); NEUTROPHILS # (AUTO) 6.4 K/uL (1.8-7.7); NEUTROPHILS % (AUTO) 78.9 % (42.2-75.2); PLATELET COUNT (AUTO) 158 K/uL (140-450); RED CELL DISTRIBUTION WIDTH 14.5 % (11.6-13.7); WHITE BLOOD COUNT (AUTO) 8.1 K/uL (4.8-10.8)
[2023-06-04 07:12] LABS: ALANINE AMINOTRANSFERASE 22 U/L (12-78); ALBUMIN 1.6 g/dL (3.4-5.0); ALKALINE PHOSPHATASE 122 U/L (50-136); ANION GAP 9.1 (8-16); ASPARTATE AMINOTRANSFERASE 36 U/L (15-37); CALCIUM 8.2 mg/dL (8.5-10.1); CARBON DIOXIDE 32.4 mmol/L (21-32); CHLORIDE 96 mmol/L (98-107); GLUCOSE 193 mg/dL (74-106); POTASSIUM 4.5 mmol/L (3.5-5.1); SODIUM SERUM 133 mmol/L (136-145); TOTAL BILIRUBIN 0.3 mg/dL (0.0-1.0); TOTAL PROTEIN, SERUM 5.8 g/dL (6.4-8.2); UREA NITROGEN, BLOOD 19 mg/dL (7-18)
[2023-06-04 07:16] LABS: CREATININE 4.2 mg/dL (0.6-1.3)
[2023-06-04] MEDS ORDERED: MAGNESIUM HYDROXIDE 2400 MG/30 ML UDC PO PRN (16:10)
[2023-06-04] MEDS ORDERED: EPOETIN ALFA 2000 UNIT SQ SCH (16:10)
[2023-06-04] MEDS ORDERED: ALENDRONATE SODIUM 70 MG TAB PO SCH (16:10)
[2023-06-04] MEDS ORDERED: bisacodyL 10 MG SUPP RC PRN (16:10)
[2023-06-04] MEDS ORDERED: MAGNESIUM HYDROXIDE 2400 MG/30 ML UDC PO SCH (16:10)
[2023-06-04] MEDS ORDERED: traMADol 50 MG TAB PO PRN (16:10)
[2023-06-04] MEDS ORDERED: NON-FORMULARY ITEM (Hydralazine HCl (Hydralazine Hcl) 1 TAB) PO SCH (17:00)
[2023-06-04] MEDS ORDERED: HYDROcodone/APAP 7.5/325 MG 1 TAB PO PRN (17:15)
[2023-06-04] MEDS ORDERED: ONDANSETRON 4 MG/2 ML VIAL IVP PRN (17:15)
[2023-06-04] MEDS ORDERED: MAG SULF 2000 MG/WATER PREMIX 50 ML IV PRN (17:15)
[2023-06-04] MEDS: hydrALAZINE 25 MG TAB PO SCH (18:23)
[2023-06-04] MEDS: INSULIN LANTUS 100 UNITS/ML 10 ML VIAL SUBQ SCH (21:00)
[2023-06-04] MEDS ORDERED: DOCUSATE SODIUM 100 MG GELCAP PO SCH (21:00)
[2023-06-04] MEDS ORDERED: NON-FORMULARY ITEM (Insulin Glargine,Hum.rec.anlog (Lantus Solostar) 20 UNIT) SUBQ SCH (21:00)
[2023-06-04 21:39] LABS: BASOPHILS % (AUTO) 0.3 % (0.0-2.0); EOSINOPHILS # (AUTO) 0.1 K/uL (0-0.4); EOSINOPHILS % (AUTO) 1.1 % (0.0-4.0); HEMATOCRIT 33.4 % (36-48); HEMOGLOBIN 11.2 g/dL (12.0-16.0); LYMPHOCYTES # (AUTO) 0.5 K/uL (2.5-16.5); LYMPHOCYTES % (AUTO) 6.8 % (20.5-51.1); MEAN CORPUSCULAR HEMOGLOBIN 30 pg (27-31); MEAN CORPUSCULAR HGB CONC 34 g/dL (33-37); MEAN CORPUSCULAR VOLUME 89.9 fL (80-94); MONOCYTES # (AUTO) 0.7 K/uL (0.8-1.0); MONOCYTES % (AUTO) 9.5 % (1.7-9.3); NEUTROPHILS # (AUTO) 6.1 K/uL (1.8-7.7); NEUTROPHILS % (AUTO) 82.3 % (42.2-75.2); PLATELET COUNT (AUTO) 127 K/uL (140-450); RED BLOOD CELL COUNT(AUTO) 3.71 MIL/uL (4.20-5.40); RED CELL DISTRIBUTION WIDTH 14.6 % (11.6-13.7); WHITE BLOOD COUNT (AUTO) 7.5 K/uL (4.8-10.8)
[2023-06-04 21:50] LABS: CARBON DIOXIDE 32.2 mmol/L (21-32); CHLORIDE 98 mmol/L (98-107); GLUCOSE 173 mg/dL (74-106); POTASSIUM 4.2 mmol/L (3.5-5.1); SODIUM SERUM 135 mmol/L (136-145); UREA NITROGEN, BLOOD 11 mg/dL (7-18)
[2023-06-04 21:51] LABS: INR 1.16 (0.8-1.2); PARTIAL THROMBOPLASTIN TIME 29.1 secs (22-35.6); PROTHROMBIN TIME 12.1 secs (10.8-13.4)
[2023-06-04] MEDS: DOCUSATE SODIUM 100 MG GELCAP PO SCH (22:05)
[2023-06-04] MEDS: carvediloL 12.5 MG TAB PO SCH (22:06)
[2023-06-04] MEDS: ATORVASTATIN 20 MG TAB PO SCH (22:06)
[2023-06-04 22:08] LABS: LACTIC ACID 0.7 mmol/L (0.4-2.0)
[2023-06-04 22:15] LABS: FREE T4 (FREE THYROXINE) 1.09 ng/dL (0.76-1.46); PHOSPHORUS 2.7 mg/dL (2.5-4.9); THYROID STIMULATING HORMONE 5.03 uIU/mL (0.34-3.74)
[2023-06-04] MEDS: ACETAMINOPHEN 325 MG TAB PO PRN (22:36)
[2023-06-05] VITALS (8 sets, daily range): BP systolic 101–159; BP diastolic 49–74; PULSE 68–78; RESP 18; TEMP 36.2; O2SAT 97–100
[2023-06-05] MEDS: LEVOTHYROXINE 0.05 MG TAB PO SCH (06:52)
[2023-06-05 06:58] LABS: BASOPHILS % (AUTO) 0.3 % (0.0-2.0); EOSINOPHILS # (AUTO) 0.1 K/uL (0-0.4); EOSINOPHILS % (AUTO) 1.8 % (0.0-4.0); HEMATOCRIT 32.4 % (36-48); HEMOGLOBIN 10.9 g/dL (12.0-16.0); LYMPHOCYTES # (AUTO) 0.7 K/uL (2.5-16.5); LYMPHOCYTES % (AUTO) 11.9 % (20.5-51.1); MEAN CORPUSCULAR HEMOGLOBIN 31 pg (27-31); MEAN CORPUSCULAR HGB CONC 34 g/dL (33-37); MEAN CORPUSCULAR VOLUME 91.1 fL (80-94); MONOCYTES # (AUTO) 0.7 K/uL (0.8-1.0); MONOCYTES % (AUTO) 10.8 % (1.7-9.3); NEUTROPHILS # (AUTO) 4.7 K/uL (1.8-7.7); NEUTROPHILS % (AUTO) 75.2 % (42.2-75.2); PLATELET COUNT (AUTO) 118 K/uL (140-450); RED BLOOD CELL COUNT(AUTO) 3.56 MIL/uL (4.20-5.40); RED CELL DISTRIBUTION WIDTH 14.4 % (11.6-13.7); WHITE BLOOD COUNT (AUTO) 6.3 K/uL (4.8-10.8)
[2023-06-05 07:05] LABS: ANION GAP 8.7 (8-16); CALCIUM 8.1 mg/dL (8.5-10.1); CARBON DIOXIDE 32.4 mmol/L (21-32); CHLORIDE 98 mmol/L (98-107); CREATININE 3.4 mg/dL (0.6-1.3); GLUCOSE 144 mg/dL (74-106); POTASSIUM 4.1 mmol/L (3.5-5.1); SODIUM SERUM 135 mmol/L (136-145); UREA NITROGEN, BLOOD 14 mg/dL (7-18)
[2023-06-05 07:27] LABS: MAGNESIUM 2.2 mg/dL (1.8-2.4)
[2023-06-05] MEDS ORDERED: LEVOTHYROXINE 0.05 MG TAB PO SCH (09:00)
[2023-06-05] MEDS ORDERED: NON-FORMULARY ITEM (Lactulose 30 ML) PO SCH (09:00)
[2023-06-05] MEDS ORDERED: NON-FORMULARY ITEM (Cranberry Fruit (Cranberry) 1 TAB) PO SCH (09:00)
[2023-06-05] MEDS: FUROSEMIDE 40 MG TAB PO SCH (09:49)
[2023-06-05] MEDS: MONTELUKAST SODIUM 10 MG TAB PO SCH (09:50)
[2023-06-05] MEDS: VIT-B COMP/VIT-C/FOLIC ACID 1 TAB PO SCH (09:50)
[2023-06-05] MEDS: amLODIPine 5 MG TAB PO SCH (09:51)
[2023-06-05] MEDS: GABAPENTIN 100 MG CAP PO SCH (09:51)
[2023-06-05] MEDS: CALCIUM CARBONATE 500 MG TAB PO SCH (09:51)
[2023-06-05] MEDS: ASPIRIN 81 MG TAB.CHEW PO SCH (09:52)
[2023-06-05] MEDS: LOSARTAN 50 MG TAB PO SCH (09:54)
[2023-06-05] MEDS: LORATADINE 10 MG TAB PO SCH (09:55)
[2023-06-05] MEDS: CLOPIDOGREL 75 MG TAB PO SCH (09:56)
[2023-06-05] MEDS: CYANOCOBALAMIN 100 MCG TAB PO SCH (10:10)
[2023-06-05] MEDS: LACTULOSE 20 GM/30 ML UDC PO SCH (10:10)
[2023-06-06] VITALS (14 sets, daily range): BP systolic 133–145; BP diastolic 55–62; PULSE 72–78; RESP 16–18; TEMP 96.9–97.1; O2SAT 92–100
[2023-06-06 07:19] LABS: BASOPHILS % (AUTO) 0.4 % (0.0-2.0); EOSINOPHILS # (AUTO) 0.1 K/uL (0-0.4); EOSINOPHILS % (AUTO) 2.1 % (0.0-4.0); HEMATOCRIT 29.3 % (36-48); HEMOGLOBIN 9.7 g/dL (12.0-16.0); LYMPHOCYTES # (AUTO) 0.8 K/uL (2.5-16.5); LYMPHOCYTES % (AUTO) 15.9 % (20.5-51.1); MEAN CORPUSCULAR HEMOGLOBIN 30 pg (27-31); MEAN CORPUSCULAR HGB CONC 33 g/dL (33-37); MEAN CORPUSCULAR VOLUME 90.8 fL (80-94); MONOCYTES # (AUTO) 0.5 K/uL (0.8-1.0); NEUTROPHILS # (AUTO) 3.4 K/uL (1.8-7.7); NEUTROPHILS % (AUTO) 70.6 % (42.2-75.2); PLATELET COUNT (AUTO) 117 K/uL (140-450); RED BLOOD CELL COUNT(AUTO) 3.23 MIL/uL (4.20-5.40); RED CELL DISTRIBUTION WIDTH 14.5 % (11.6-13.7); WHITE BLOOD COUNT (AUTO) 4.9 K/uL (4.8-10.8)
[2023-06-06 07:36] LABS: ANION GAP 11.5 (8-16); CALCIUM 7.9 mg/dL (8.5-10.1); CARBON DIOXIDE 30.3 mmol/L (21-32); CHLORIDE 98 mmol/L (98-107); GLUCOSE 159 mg/dL (74-106); POTASSIUM 3.8 mmol/L (3.5-5.1); SODIUM SERUM 136 mmol/L (136-145); UREA NITROGEN, BLOOD 21 mg/dL (7-18)
[2023-06-06 07:43] LABS: CREATININE 4.2 mg/dL (0.6-1.3)
[2023-06-06 07:47] LABS: MAGNESIUM 2.2 mg/dL (1.8-2.4); PHOSPHORUS 2.7 mg/dL (2.5-4.9)
[2023-06-06] MEDS ORDERED: DEXTROSE 50% 50 ML SYR IVP PRN (19:10)
[2023-06-06] MEDS: BLOOD GLUCOSE MONITORING 1 DEV DEV FS SCH (21:00)
[2023-06-07] VITALS (12 sets, daily range): BP systolic 95–154; BP diastolic 56–66; PULSE 75–104; RESP 16–20; TEMP 97.2–98.8; O2SAT 90–100
[2023-06-07 06:55] LABS: BASOPHILS % (AUTO) 0.6 % (0.0-2.0); EOSINOPHILS # (AUTO) 0.1 K/uL (0-0.4); EOSINOPHILS % (AUTO) 2.6 % (0.0-4.0); HEMATOCRIT 28.7 % (36-48); HEMOGLOBIN 9.8 g/dL (12.0-16.0); LYMPHOCYTES # (AUTO) 0.8 K/uL (2.5-16.5); LYMPHOCYTES % (AUTO) 16.7 % (20.5-51.1); MEAN CORPUSCULAR HEMOGLOBIN 31 pg (27-31); MEAN CORPUSCULAR HGB CONC 34 g/dL (33-37); MEAN CORPUSCULAR VOLUME 90.8 fL (80-94); MONOCYTES # (AUTO) 0.5 K/uL (0.8-1.0); NEUTROPHILS # (AUTO) 3.1 K/uL (1.8-7.7); NEUTROPHILS % (AUTO) 69.1 % (42.2-75.2); PLATELET COUNT (AUTO) 86 K/uL (140-450); RED BLOOD CELL COUNT(AUTO) 3.16 MIL/uL (4.20-5.40); RED CELL DISTRIBUTION WIDTH 14.3 % (11.6-13.7); WHITE BLOOD COUNT (AUTO) 4.6 K/uL (4.8-10.8)
[2023-06-07 07:48] LABS: ANION GAP 8.6 (8-16); CALCIUM 7.6 mg/dL (8.5-10.1); CARBON DIOXIDE 31.8 mmol/L (21-32); CHLORIDE 102 mmol/L (98-107); CREATININE 3.2 mg/dL (0.6-1.3); GLUCOSE 118 mg/dL (74-106); POTASSIUM 3.4 mmol/L (3.5-5.1); SODIUM SERUM 139 mmol/L (136-145); UREA NITROGEN, BLOOD 12 mg/dL (7-18)
[2023-06-07 08:00] LABS: PHOSPHORUS 2.4 mg/dL (2.5-4.9)
[2023-06-07] MEDS: POTASSIUM CHLORIDE 10 MEQ TABER PO PRN (09:16)
[2023-06-08] VITALS (12 sets, daily range): BP systolic 127–176; BP diastolic 61–76; PULSE 73–81; RESP 12–19; TEMP 96.9–98.4; O2SAT 93–100
[2023-06-08] MEDS: INSULIN LISPRO SLIDING SCALE 100 UNITS/ML VIAL SUBQ PRN (06:28)
[2023-06-08 07:01] LABS: BASOPHILS % (AUTO) 0.6 % (0.0-2.0); EOSINOPHILS # (AUTO) 0.2 K/uL (0-0.4); HEMATOCRIT 30.6 % (36-48); HEMOGLOBIN 10.3 g/dL (12.0-16.0); LYMPHOCYTES # (AUTO) 0.9 K/uL (2.5-16.5); MEAN CORPUSCULAR HEMOGLOBIN 31 pg (27-31); MEAN CORPUSCULAR HGB CONC 34 g/dL (33-37); MEAN CORPUSCULAR VOLUME 91.2 fL (80-94); MONOCYTES # (AUTO) 0.6 K/uL (0.8-1.0); NEUTROPHILS # (AUTO) 3.4 K/uL (1.8-7.7); NEUTROPHILS % (AUTO) 66.4 % (42.2-75.2); PLATELET COUNT (AUTO) 89 K/uL (140-450); RED BLOOD CELL COUNT(AUTO) 3.36 MIL/uL (4.20-5.40); RED CELL DISTRIBUTION WIDTH 14.7 % (11.6-13.7); WHITE BLOOD COUNT (AUTO) 5.2 K/uL (4.8-10.8)
[2023-06-08 07:11] LABS: ANION GAP 9.5 (8-16); CALCIUM 8.2 mg/dL (8.5-10.1); CARBON DIOXIDE 29.6 mmol/L (21-32); CHLORIDE 104 mmol/L (98-107); GLUCOSE 181 mg/dL (74-106); POTASSIUM 4.1 mmol/L (3.5-5.1); SODIUM SERUM 139 mmol/L (136-145); UREA NITROGEN, BLOOD 14 mg/dL (7-18)
[2023-06-08 07:24] LABS: CREATININE 4.1 mg/dL (0.6-1.3)
[2023-06-08 07:27] LABS: MAGNESIUM 2.3 mg/dL (1.8-2.4); PHOSPHORUS 2.3 mg/dL (2.5-4.9)
[2023-06-08] MEDS: LINEZOLID 600 MG TAB PO SCH (08:30)
[2023-06-08 09:35] LABS: INR 1.11 (0.8-1.2); PARTIAL THROMBOPLASTIN TIME 29.5 secs (22-35.6); PROTHROMBIN TIME 11.5 secs (10.8-13.4)
[2023-06-08] MEDS ORDERED: LINE600T10 PO (16:19)
[2023-06-08 16:58] LABS: GLUCOSE,BODY FLUID 243 mg/dL; PROTEIN, BODY FLUID 0.8 g/dL
[2023-06-08 18:45] LABS: APPEARANCE,SPUN,BODY FLUID CLEAR (CLEAR); APPEARANCE,UNSPUN,BODY FLUID CLEAR (CLEAR); COLOR,BODY FLUID LT YELLOW (LT YELLOW); SPECIMENTYPE,BODY FLUID PARACENTESIS
[2023-06-08 18:46] LABS: POLYNUCLEAR, BODY FLUID 15 %; RBC, BODY FLUID 81 /cu. mm.; TOTAL VOLUME,BODY FLUID 135 mL; WBC, BODY FLUID 20 /cu. mm.
[2023-06-09] MEDS ORDERED: EPOETIN ALFA-EPBX 10,000 UNITS/ML VIAL SUBQ SCH (09:00)
== END 2023-06-08 19:15 | DRG 432 ==
LOC: MED 15:27 → MTU 18:31
PROC: 5A1D70Z Performance of Urinary Filtration, Intermittent, Less than 6 Hours Per Day (ICD-10-PCS; 2023-06-04)
PROC: 5A1D70Z Performance of Urinary Filtration, Intermittent, Less than 6 Hours Per Day (ICD-10-PCS; 2023-06-06)
PROC: 0W9G3ZZ Drainage of Peritoneal Cavity, Percutaneous Approach (ICD-10-PCS; principal; 2023-06-08)
DX: K74.60 Unspecified cirrhosis of liver (principal); E43 Unspecified severe protein-calorie malnutrition; N17.0 Acute kidney failure with tubular necrosis; N18.6 End stage renal disease; E87.1 Hypo-osmolality and hyponatremia; N39.0 Urinary tract infection, site not specified; R18.8 Other ascites; I13.0 Hypertensive heart and chronic kidney disease with heart failure and stage 1 through stage 4 chronic kidney disease, or unspecified chronic kidney disease; Z66 Do not resuscitate; D25.9 Leiomyoma of uterus, unspecified; K21.9 Gastro-esophageal reflux disease without esophagitis; E03.9 Hypothyroidism, unspecified; E11.22 Type 2 diabetes mellitus with diabetic chronic kidney disease; E78.5 Hyperlipidemia, unspecified; E87.70 Fluid overload, unspecified; D63.1 Anemia in chronic kidney disease; I50.9 Heart failure, unspecified; E86.0 Dehydration; Z99.2 Dependence on renal dialysis; Z88.0 Allergy status to penicillin; Z86.73 Personal history of transient ischemic attack (TIA), and cerebral infarction without residual deficits; Z79.4 Long term (current) use of insulin; Z79.82 Long term (current) use of aspirin; Z68.22 Body mass index [BMI] 22.0-22.9, adult
CPT/HCPCS: 36415; 49083; 76705; 80048; 80053; 80076; 81001; 82140; 82150; 82945; 82948; 83036; 83605; 83615; 83690; 83735; 83880; 84100; 84157; 84439; 84443; 84484; 85025; 85610; 85730; 87040; 87081; 87086; 87186; 87205; 89051; 93005; 96365; 97110; 97112; 97163-GP; 97530; 99285; J0696; J0744; J1644; J1815; J2001; J7060; Q0092

== ENCOUNTER 2023-07-20 11:53 | Inpatient (IN) | payer OTHER ==
[~2023-07-20] VITALS: Ht 152.4 cm; Wt 67.6 kg
[2023-07-20 11:53] VITALS: BP 112/48; PULSE 71; RESP 16; TEMP 98; O2SAT 97
[~2023-07-20 11:53] MED LIST changes: +ACET-2619 PO; +AMLO10TA PO; -AMLO5TAB PO; +ASPI-1822 PO; +ATOR20TA40 PO; -ATOR40TA PO; +CALC-751 PO; +CRAN450T5 PO; +DIPH25SG5 PO; +DOCU-299 PO; -FURO-570 PO; +GABA100C PO; +GLUC1VIA; +HYDR-1100 PO; -HYDR-3233 PO; +LACT-191 PO; +LEVO0.087 PO; +LOSA-272 PO; +MIRABULK PO; +MONT-72 PO; +MULT-1469 PO; +NITR0.4T2 SL; +ONDA-188 SL; +ROC2I IV; +SENN-72 PO; -SYN.05 PO; +[UNRECOGNIZED DRUG - CODE] PO
[2023-07-20 12:03] VITALS: O2SAT 97
[2023-07-20 14:01] VITALS: O2SAT 98
[2023-07-20 14:08] LABS: ANION GAP 17.1 (8-16); CARBON DIOXIDE 23.1 mmol/L (21-32); CHLORIDE 97 mmol/L (98-107); POTASSIUM 3.2 mmol/L (3.5-5.1); SODIUM SERUM 134 mmol/L (136-145)
[2023-07-20 14:09] LABS: CALCIUM 7.1 mg/dL (8.5-10.1); GLUCOSE 195 mg/dL (74-106); UREA NITROGEN, BLOOD 13 mg/dL (7-18)
[2023-07-20 14:10] LABS: CREATININE 4.7 mg/dL (0.6-1.3)
[2023-07-20 14:30] LABS: ALANINE AMINOTRANSFERASE 13 U/L (12-78); ALBUMIN 1.2 g/dL (3.4-5.0); ALKALINE PHOSPHATASE 109 U/L (50-136); ASPARTATE AMINOTRANSFERASE 24 U/L (15-37); BILIRUBIN,DIRECT 0.4 mg/dL (0.0-0.3); TOTAL BILIRUBIN 0.7 mg/dL (0.0-1.0); TOTAL PROTEIN, SERUM 5.4 g/dL (6.4-8.2)
[2023-07-20 16:08] VITALS: O2SAT 98
[2023-07-20] MEDS: MORPHINE SULFATE 4 MG/ML SYR IVP ONE (17:07)
[2023-07-20] MEDS: LEVOFLOXACIN 500 MG/D5W PREMIX 100 ML IV ONE (17:08)
[2023-07-20] MEDS: NACL 0.9% 1,000 ML IV SCH (17:08)
[2023-07-20 17:32] LABS: LACTIC ACID 0.7 mmol/L (0.4-2.0)
[2023-07-20 17:46] LABS: BASOPHILS % (AUTO) 0.3 % (0.0-2.0); EOSINOPHILS # (AUTO) 0.1 K/uL (0-0.4); EOSINOPHILS % (AUTO) 1.8 % (0.0-4.0); HEMATOCRIT 26.4 % (36-48); HEMOGLOBIN 8.8 g/dL (12.0-16.0); LYMPHOCYTES # (AUTO) 0.6 K/uL (2.5-16.5); LYMPHOCYTES % (AUTO) 12.7 % (20.5-51.1); MEAN CORPUSCULAR HEMOGLOBIN 33 pg (27-31); MEAN CORPUSCULAR HGB CONC 33 g/dL (33-37); MEAN CORPUSCULAR VOLUME 97.9 fL (80-94); MONOCYTES # (AUTO) 0.5 K/uL (0.8-1.0); MONOCYTES % (AUTO) 10.1 % (1.7-9.3); NEUTROPHILS # (AUTO) 3.4 K/uL (1.8-7.7); NEUTROPHILS % (AUTO) 75.1 % (42.2-75.2); PLATELET COUNT (AUTO) 106 K/uL (140-450); RED CELL DISTRIBUTION WIDTH 23.1 % (11.6-13.7); WHITE BLOOD COUNT (AUTO) 4.6 K/uL (4.8-10.8)
[2023-07-20 20:00] VITALS: PULSE 67; RESP 18; O2SAT 100
[2023-07-20] MEDS: cefTRIAXone 1,000 MG VIAL ONE (20:29)
[2023-07-20] MEDS: AZITHROMYCIN 500 MG in DEXTROSE 5% 250 ML IV SCH (22:00)
[2023-07-20] MEDS: AZITHROMYCIN 500 MG INJ VIAL IV ONE (22:01)
[2023-07-20 22:53] VITALS: PULSE 65; RESP 17; O2SAT 99
[2023-07-21] VITALS (11 sets, daily range): BP systolic 90–142; BP diastolic 53–63; PULSE 62–84; RESP 17–18; TEMP 97.4–98.7; O2SAT 95–100
[2023-07-21] MEDS: BLOOD GLUCOSE MONITORING 1 DEV DEV FS SCH (06:31)
[2023-07-21] MEDS: INSULIN LISPRO SLIDING SCALE 100 UNITS/ML VIAL SUBQ PRN (06:34)
[2023-07-21 06:54] LABS: BASOPHILS % (AUTO) 0.2 % (0.0-2.0); EOSINOPHILS # (AUTO) 0.1 K/uL (0-0.4); EOSINOPHILS % (AUTO) 1.2 % (0.0-4.0); HEMATOCRIT 26.3 % (36-48); HEMOGLOBIN 8.9 g/dL (12.0-16.0); LYMPHOCYTES # (AUTO) 0.4 K/uL (2.5-16.5); LYMPHOCYTES % (AUTO) 9.5 % (20.5-51.1); MEAN CORPUSCULAR HEMOGLOBIN 33 pg (27-31); MEAN CORPUSCULAR HGB CONC 34 g/dL (33-37); MEAN CORPUSCULAR VOLUME 97.5 fL (80-94); MONOCYTES # (AUTO) 0.4 K/uL (0.8-1.0); MONOCYTES % (AUTO) 8.5 % (1.7-9.3); NEUTROPHILS # (AUTO) 3.6 K/uL (1.8-7.7); NEUTROPHILS % (AUTO) 80.6 % (42.2-75.2); PLATELET COUNT (AUTO) 90 K/uL (140-450); RED CELL DISTRIBUTION WIDTH 22.8 % (11.6-13.7); WHITE BLOOD COUNT (AUTO) 4.5 K/uL (4.8-10.8)
[2023-07-21 08:05] LABS: ANION GAP 13.9 (8-16); CALCIUM 6.7 mg/dL (8.5-10.1); CHLORIDE 97 mmol/L (98-107); GLUCOSE 194 mg/dL (74-106); SODIUM SERUM 136 mmol/L (136-145); UREA NITROGEN, BLOOD 13 mg/dL (7-18)
[2023-07-21 08:21] LABS: POTASSIUM 2.9 mmol/L (3.5-5.1)
[2023-07-21 08:50] LABS: CREATININE 4.8 mg/dL (0.6-1.3)
[2023-07-21] MEDS: EPOETIN ALFA-EPBX 10,000 UNITS/ML VIAL IV SCH (11:41)
[2023-07-21] MEDS ORDERED: bisacodyL 10 MG SUPP RC SCH (13:05)
[2023-07-21] MEDS ORDERED: EPOETIN ALFA 2000 UNIT SQ SCH (13:05)
[2023-07-21] MEDS ORDERED: GLUCAGON 1 MG VIAL IM PRN (13:05)
[2023-07-21] MEDS ORDERED: NITROGLYCERIN 0.4 MG TAB SL SCH (13:05)
[2023-07-21] MEDS ORDERED: POLYETHYLENE GLYCOL 17 GM/PKT PO PRN (13:05)
[2023-07-21] MEDS ORDERED: POTASSIUM CHLORIDE 10 MEQ TABER PO PRN (13:10)
[2023-07-21] MEDS ORDERED: bisacodyL 10 MG SUPP RC PRN (13:23)
[2023-07-21 13:34] LABS: EOSINOPHILS # (AUTO) 0.1 K/uL (0-0.4); EOSINOPHILS % (AUTO) 2.7 % (0.0-4.0); LYMPHOCYTES # (AUTO) 0.3 K/uL (2.5-16.5); MONOCYTES # (AUTO) 0.1 K/uL (0.8-1.0); WHITE BLOOD COUNT (AUTO) 2.7 K/uL (4.8-10.8)
[2023-07-21 13:50] LABS: BASOPHILS % (AUTO) 0.5 % (0.0-2.0); HEMATOCRIT 25.9 % (36-48); HEMOGLOBIN 8.8 g/dL (12.0-16.0); LYMPHOCYTES % (AUTO) 11.7 % (20.5-51.1); MEAN CORPUSCULAR HEMOGLOBIN 33 pg (27-31); MEAN CORPUSCULAR HGB CONC 34 g/dL (33-37); MEAN CORPUSCULAR VOLUME 96.2 fL (80-94); MONOCYTES % (AUTO) 2.2 % (1.7-9.3); NEUTROPHILS # (AUTO) 2.2 K/uL (1.8-7.7); NEUTROPHILS % (AUTO) 82.9 % (42.2-75.2); PLATELET COUNT (AUTO) 83 K/uL (140-450); RED CELL DISTRIBUTION WIDTH 22.9 % (11.6-13.7)
[2023-07-21 13:53] LABS: ANION GAP 6.2 (8-16); CALCIUM 7.1 mg/dL (8.5-10.1); CARBON DIOXIDE 31.6 mmol/L (21-32); CHLORIDE 101 mmol/L (98-107); GLUCOSE 77 mg/dL (74-106); POTASSIUM 3.8 mmol/L (3.5-5.1); SODIUM SERUM 135 mmol/L (136-145); UREA NITROGEN, BLOOD 12 mg/dL (7-18)
[2023-07-21 13:56] LABS: CREATININE 4.1 mg/dL (0.6-1.3)
[2023-07-21 14:07] LABS: CHOL/HDL RATIO 5.8 (1-4.5); FREE T4 (FREE THYROXINE) 0.8 ng/dL (0.76-1.46); MAGNESIUM 1.7 mg/dL (1.8-2.4); PHOSPHORUS 2.3 mg/dL (2.5-4.9); THYROID STIMULATING HORMONE 15.05 uIU/mL (0.34-3.74)
[2023-07-21 14:11] LABS: INR 1.46 (0.8-1.2); PARTIAL THROMBOPLASTIN TIME 33.4 secs (22-35.6)
[2023-07-21] MEDS: ACETAMINOPHEN 325 MG TAB PO PRN (16:33)
[2023-07-21] MEDS: ONDANSETRON 4 MG/2 ML VIAL IVP PRN (16:39)
[2023-07-21] MEDS: hydrALAZINE 25 MG TAB PO SCH (17:00)
[2023-07-21] MEDS ORDERED: NON-FORMULARY ITEM (Hydralazine HCl (Hydralazine Hcl) 1 TAB) PO SCH (17:00)
[2023-07-21] MEDS ORDERED: POTASSIUM CHLORIDE 40 MEQ, LIDOCAINE 1% 25 MG in NACL 0.9% 250 ML IV ONE (17:20)
[2023-07-21] MEDS: MAG SULF 2000 MG/WATER PREMIX 50 ML IV PRN (17:53)
[2023-07-21] MEDS: SENNA 8.6 MG TAB PO SCH (20:39)
[2023-07-21] MEDS: DOCUSATE SODIUM 100 MG GELCAP PO SCH (20:41)
[2023-07-21] MEDS: carvediloL 12.5 MG TAB PO SCH (20:42)
[2023-07-21] MEDS: INSULIN LANTUS 100 UNITS/ML 10 ML VIAL SUBQ SCH (20:50)
[2023-07-21] MEDS ORDERED: ONDANSETRON 4 MG ODT SL SCH (21:00)
[2023-07-21] MEDS ORDERED: NON-FORMULARY ITEM (Insulin Glargine,Hum.rec.anlog (Lantus Solostar) 20 UNIT) SUBQ SCH (21:00)
[2023-07-21] MEDS ORDERED: DOCUSATE SODIUM 100 MG GELCAP PO SCH (21:00)
[2023-07-21] MEDS: HYDROcodone/APAP 7.5/325 MG 1 TAB PO PRN (21:53)
[2023-07-22] VITALS (10 sets, daily range): BP systolic 90–117; BP diastolic 50–61; PULSE 63–79; RESP 16–18; TEMP 96.9–98.1; O2SAT 96–100
[2023-07-22] MEDS: LEVOTHYROXINE 0.088 MG TAB PO SCH (05:52)
[2023-07-22 06:54] LABS: BASOPHILS % (AUTO) 0.1 % (0.0-2.0); EOSINOPHILS % (AUTO) 0.1 % (0.0-4.0); HEMATOCRIT 25.7 % (36-48); HEMOGLOBIN 8.6 g/dL (12.0-16.0); LYMPHOCYTES # (AUTO) 0.4 K/uL (2.5-16.5); LYMPHOCYTES % (AUTO) 9.9 % (20.5-51.1); MEAN CORPUSCULAR HEMOGLOBIN 33 pg (27-31); MEAN CORPUSCULAR HGB CONC 33 g/dL (33-37); MEAN CORPUSCULAR VOLUME 98.9 fL (80-94); MONOCYTES # (AUTO) 0.2 K/uL (0.8-1.0); MONOCYTES % (AUTO) 6.1 % (1.7-9.3); NEUTROPHILS % (AUTO) 83.8 % (42.2-75.2); PLATELET COUNT (AUTO) 52 K/uL (140-450); RED CELL DISTRIBUTION WIDTH 22.4 % (11.6-13.7); WHITE BLOOD COUNT (AUTO) 3.6 K/uL (4.8-10.8)
[2023-07-22 07:14] LABS: MAGNESIUM 2.2 mg/dL (1.8-2.4); PHOSPHORUS 2.8 mg/dL (2.5-4.9)
[2023-07-22 07:33] LABS: ANION GAP 13.2 (8-16); CHLORIDE 97 mmol/L (98-107); GLUCOSE 164 mg/dL (74-106); POTASSIUM 3.2 mmol/L (3.5-5.1); SODIUM SERUM 134 mmol/L (136-145); UREA NITROGEN, BLOOD 13 mg/dL (7-18)
[2023-07-22 08:27] LABS: CREATININE 4.8 mg/dL (0.6-1.3)
[2023-07-22] MEDS: PANTOPRAZOLE 40 MG INJ VIAL IVP SCH (08:43)
[2023-07-22] MEDS: LACTULOSE 20 GM/30 ML UDC PO SCH (08:43)
[2023-07-22] MEDS: amLODIPine 5 MG TAB PO SCH (08:48)
[2023-07-22] MEDS: ASPIRIN 81 MG TAB.CHEW PO SCH (08:49)
[2023-07-22] MEDS: GABAPENTIN 100 MG CAP PO SCH (08:49)
[2023-07-22] MEDS: ATORVASTATIN 20 MG TAB PO SCH (08:51)
[2023-07-22] MEDS: VIT-B COMP/VIT-C/FOLIC ACID 1 TAB PO SCH (08:51)
[2023-07-22] MEDS: CLOPIDOGREL 75 MG TAB PO SCH (08:51)
[2023-07-22] MEDS: MONTELUKAST SODIUM 10 MG TAB PO SCH (08:53)
[2023-07-22] MEDS: LORATADINE 10 MG TAB PO SCH (08:54)
[2023-07-22] MEDS: LOSARTAN 50 MG TAB PO SCH (08:55)
[2023-07-22] MEDS ORDERED: NON-FORMULARY ITEM (Lactulose 30 ML) PO SCH (09:00)
[2023-07-22] MEDS ORDERED: PANTOPRAZOLE 40 MG TABEC PO SCH (09:00)
[2023-07-22] MEDS ORDERED: NON-FORMULARY ITEM (Cranberry Fruit (Cranberry) 1 TAB) PO SCH (09:00)
[2023-07-22] MEDS: METOCLOPRAMIDE 10 MG TAB PO SCH (16:44)
[2023-07-23] VITALS (12 sets, daily range): BP systolic 76–157; BP diastolic 24–70; PULSE 65–80; RESP 12–18; TEMP 96.5–98.3; O2SAT 92–100
[2023-07-23 07:43] LABS: ANION GAP 15.6 (8-16); CALCIUM 6.8 mg/dL (8.5-10.1); CARBON DIOXIDE 24.1 mmol/L (21-32); CHLORIDE 97 mmol/L (98-107); GLUCOSE 206 mg/dL (74-106); POTASSIUM 3.7 mmol/L (3.5-5.1); SODIUM SERUM 133 mmol/L (136-145); UREA NITROGEN, BLOOD 16 mg/dL (7-18)
[2023-07-23 07:46] LABS: CREATININE 5.2 mg/dL (0.6-1.3)
[2023-07-23 07:54] LABS: MAGNESIUM 2.1 mg/dL (1.8-2.4); PHOSPHORUS 3.4 mg/dL (2.5-4.9)
[2023-07-23 08:07] LABS: BASOPHILS % (AUTO) 0.1 % (0.0-2.0); EOSINOPHILS % (AUTO) 0.1 % (0.0-4.0); HEMOGLOBIN 7.8 g/dL (12.0-16.0); LYMPHOCYTES # (AUTO) 0.5 K/uL (2.5-16.5); LYMPHOCYTES % (AUTO) 11.4 % (20.5-51.1); MEAN CORPUSCULAR HEMOGLOBIN 33 pg (27-31); MEAN CORPUSCULAR HGB CONC 33 g/dL (33-37); MONOCYTES # (AUTO) 0.4 K/uL (0.8-1.0); MONOCYTES % (AUTO) 8.8 % (1.7-9.3); NEUTROPHILS # (AUTO) 3.3 K/uL (1.8-7.7); NEUTROPHILS % (AUTO) 79.6 % (42.2-75.2); PLATELET COUNT (AUTO) 53 K/uL (140-450); RED CELL DISTRIBUTION WIDTH 22.4 % (11.6-13.7); WHITE BLOOD COUNT (AUTO) 4.2 K/uL (4.8-10.8)
[2023-07-23] MEDS: carvediloL 12.5 MG TAB PO SCH (08:43)
[2023-07-23 11:04] LABS: ALBUMIN 0.9 g/dL (3.4-5.0); BILIRUBIN,DIRECT 0.3 mg/dL (0.0-0.3); TOTAL BILIRUBIN 0.6 mg/dL (0.0-1.0); TOTAL PROTEIN, SERUM 4.3 g/dL (6.4-8.2)
[2023-07-23] MEDS ORDERED: TPN PER PHARMACY MC PRN (13:15)
[2023-07-23] MEDS ORDERED: METOCLOPRAMIDE 10 MG/2 ML INJ VIAL IVP PRN (16:45)
[2023-07-23] MEDS: NOREPINEPHRINE 4 MG in DEXTROSE 5% 250 ML IV PRN (18:10)
[2023-07-24] VITALS (27 sets, daily range): BP systolic 92–138; BP diastolic 30–78; PULSE 64–81; RESP 10–15; TEMP 96–98; O2SAT 82–100
[2023-07-24] MEDS: NOREPINEPHRINE 4 MG/4 ML VIAL IV ONE (02:32)
[2023-07-24] MEDS: NOREPINEPHRINE 16 MG in DEXTROSE 5% 250 ML IV PRN (03:05)
[2023-07-24 05:41] LABS: BASOPHILS % (AUTO) 0.1 % (0.0-2.0); EOSINOPHILS # (AUTO) 0.1 K/uL (0-0.4); EOSINOPHILS % (AUTO) 1.3 % (0.0-4.0); HEMOGLOBIN 7.9 g/dL (12.0-16.0); LYMPHOCYTES % (AUTO) 13.9 % (20.5-51.1); MEAN CORPUSCULAR HEMOGLOBIN 33 pg (27-31); MEAN CORPUSCULAR HGB CONC 33 g/dL (33-37); MEAN CORPUSCULAR VOLUME 99.9 fL (80-94); MONOCYTES # (AUTO) 0.5 K/uL (0.8-1.0); MONOCYTES % (AUTO) 6.5 % (1.7-9.3); NEUTROPHILS # (AUTO) 5.7 K/uL (1.8-7.7); NEUTROPHILS % (AUTO) 78.2 % (42.2-75.2); PLATELET COUNT (AUTO) 70 K/uL (140-450); RED CELL DISTRIBUTION WIDTH 22.5 % (11.6-13.7); WHITE BLOOD COUNT (AUTO) 7.3 K/uL (4.8-10.8)
[2023-07-24 05:52] LABS: ANION GAP 10.6 (8-16); CHLORIDE 98 mmol/L (98-107); GLUCOSE 57 mg/dL (74-106); POTASSIUM 3.6 mmol/L (3.5-5.1); SODIUM SERUM 135 mmol/L (136-145); UREA NITROGEN, BLOOD 19 mg/dL (7-18)
[2023-07-24 05:58] LABS: CREATININE 5.8 mg/dL (0.6-1.3)
[2023-07-24 06:03] LABS: MAGNESIUM 2.3 mg/dL (1.8-2.4); PHOSPHORUS 2.7 mg/dL (2.5-4.9)
[2023-07-24] MEDS: DEXTROSE 50% 50 ML SYR IVP PRN (06:40)
[2023-07-24] MEDS ORDERED: NON ADHERENT DRESSING TP PRN (12:00)
[2023-07-24] MEDS ORDERED: Z-GUARD PASTE TP PRN (12:00)
[2023-07-24] MEDS ORDERED: FOAM DRESSING TP PRN (12:00)
[2023-07-24 12:08] LABS: HEPATITIS A ANTIBODY IGM Negative (Negative); HEPATITIS A ANTIBODY TOTAL Negative (Negative); HEPATITIS B CORE, IGM Negative (Negative); HEPATITIS B SURFACE ANTIBODY Non Reactive (.); HEPATITIS B SURFACE ANTIGEN Negative (Negative)
[2023-07-24] MEDS ORDERED: PPN PER PHARMACY MC PRN (12:20)
[2023-07-24] MEDS: NON ADHERENT DRESSING TP SCH (13:00)
[2023-07-24] MEDS: Z-GUARD PASTE TP SCH (13:00)
[2023-07-24] MEDS: DEXT 5% /NACL 0.9% 1,000 ML IV SCH (14:51)
[2023-07-24] MEDS: CRUSHER, PILL MC ONE (14:54)
[2023-07-24] MEDS: BLOOD GLUCOSE MONITORING 1 DEV DEV MC SCH (19:15)
[2023-07-24] MEDS: FAT EMULSION 20% IV SCH (20:09)
[2023-07-24] MEDS: DEXTROSE 20% IV SCH (20:09)
[2023-07-24] MEDS: AMINO ACIDS 8.5% IV SCH (20:09)
[2023-07-24 20:24] LABS: HEPATITIS B CORE AB TOTAL POSITIVE (NEGATIVE)
[2023-07-24 20:25] LABS: HEPATITIS C VIRUS ANTIBODY REACTIVE s/co rat (0.00 - 0.9)
[2023-07-24] MEDS: INSULIN LISPRO SLIDING SCALE 100 UNITS/ML VIAL SUBQ PRN (21:08)
[2023-07-25] VITALS (26 sets, daily range): BP systolic 98–139; BP diastolic 46–84; PULSE 78–91; RESP 11–19; TEMP 97.1–98.1; O2SAT 95–98
[2023-07-25 05:36] LABS: ANION GAP 11.6 (8-16); CALCIUM 6.6 mg/dL (8.5-10.1); CARBON DIOXIDE 25.7 mmol/L (21-32); CHLORIDE 98 mmol/L (98-107); GLUCOSE 57 mg/dL (74-106); POTASSIUM 3.3 mmol/L (3.5-5.1); SODIUM SERUM 132 mmol/L (136-145); UREA NITROGEN, BLOOD 22 mg/dL (7-18)
[2023-07-25 05:50] LABS: CREATININE 5.9 mg/dL (0.6-1.3)
[2023-07-25 06:09] LABS: MAGNESIUM 2.3 mg/dL (1.8-2.4); PHOSPHORUS 2.4 mg/dL (2.5-4.9)
[2023-07-25 06:10] LABS: BASOPHILS % (AUTO) 0.1 % (0.0-2.0); EOSINOPHILS # (AUTO) 0.1 K/uL (0-0.4); EOSINOPHILS % (AUTO) 1.1 % (0.0-4.0); HEMATOCRIT 23.4 % (36-48); HEMOGLOBIN 7.8 g/dL (12.0-16.0); LYMPHOCYTES # (AUTO) 0.9 K/uL (2.5-16.5); LYMPHOCYTES % (AUTO) 15.6 % (20.5-51.1); MEAN CORPUSCULAR HEMOGLOBIN 33 pg (27-31); MEAN CORPUSCULAR HGB CONC 33 g/dL (33-37); MEAN CORPUSCULAR VOLUME 98.5 fL (80-94); MONOCYTES # (AUTO) 0.5 K/uL (0.8-1.0); MONOCYTES % (AUTO) 9.1 % (1.7-9.3); NEUTROPHILS # (AUTO) 4.2 K/uL (1.8-7.7); NEUTROPHILS % (AUTO) 74.1 % (42.2-75.2); PLATELET COUNT (AUTO) 49 K/uL (140-450); RED BLOOD CELL COUNT(AUTO) 2.37 MIL/uL (4.20-5.40); RED CELL DISTRIBUTION WIDTH 22.5 % (11.6-13.7); WHITE BLOOD COUNT (AUTO) 5.7 K/uL (4.8-10.8)
[2023-07-26] VITALS (28 sets, daily range): BP systolic 105–146; BP diastolic 54–77; PULSE 71–91; RESP 11–16; TEMP 97.3–98.9; O2SAT 96–100
[2023-07-26 04:24] LABS: BASOPHILS % (AUTO) 0.2 % (0.0-2.0); EOSINOPHILS % (AUTO) 1.1 % (0.0-4.0); HEMATOCRIT 21.5 % (36-48); HEMOGLOBIN 7.2 g/dL (12.0-16.0); LYMPHOCYTES # (AUTO) 0.6 K/uL (2.5-16.5); LYMPHOCYTES % (AUTO) 13.7 % (20.5-51.1); MEAN CORPUSCULAR HEMOGLOBIN 33 pg (27-31); MEAN CORPUSCULAR HGB CONC 33 g/dL (33-37); MONOCYTES # (AUTO) 0.3 K/uL (0.8-1.0); MONOCYTES % (AUTO) 7.4 % (1.7-9.3); NEUTROPHILS # (AUTO) 3.3 K/uL (1.8-7.7); NEUTROPHILS % (AUTO) 77.6 % (42.2-75.2); PLATELET COUNT (AUTO) 20 K/uL (140-450); RED BLOOD CELL COUNT(AUTO) 2.15 MIL/uL (4.20-5.40); RED CELL DISTRIBUTION WIDTH 22.2 % (11.6-13.7); WHITE BLOOD COUNT (AUTO) 4.2 K/uL (4.8-10.8)
[2023-07-26 04:40] LABS: ANION GAP 7.1 (8-16); CALCIUM 6.8 mg/dL (8.5-10.1); CARBON DIOXIDE 28.2 mmol/L (21-32); CHLORIDE 100 mmol/L (98-107); GLUCOSE 262 mg/dL (74-106); POTASSIUM 3.3 mmol/L (3.5-5.1); SODIUM SERUM 132 mmol/L (136-145); UREA NITROGEN, BLOOD 15 mg/dL (7-18)
[2023-07-26 04:44] LABS: MAGNESIUM 1.9 mg/dL (1.8-2.4); PHOSPHORUS 1.9 mg/dL (2.5-4.9)
[2023-07-26 04:54] LABS: CREATININE 4.3 mg/dL (0.6-1.3)
[2023-07-26] MEDS: POTASSIUM CHLORIDE 20% 40 MEQ/15 ML UDC PO PRN (05:42)
[2023-07-26] MEDS: ALENDRONATE SODIUM 70 MG TAB PO SCH (05:48)
[2023-07-26] MEDS ORDERED: KCL 20 MEQ IN 100 mL PREMIX 200 ML IV ONE (10:15)
[2023-07-26] MEDS ORDERED: POTASSIUM PHOSPHATE 15 MM in NACL 0.9% 250 ML IV ONE (10:15)
[2023-07-26] MEDS: SODIUM PHOS / POTASSIUM PHOS 1 PKT PDR PO SCH (12:38)
[2023-07-27] VITALS (18 sets, daily range): BP systolic 88–150; BP diastolic 34–112; PULSE 67–93; RESP 10–20; TEMP 97.1–99; O2SAT 98–100
[2023-07-27 05:50] LABS: ALANINE AMINOTRANSFERASE 19 U/L (12-78); ALBUMIN 0.8 g/dL (3.4-5.0); ALKALINE PHOSPHATASE 90 U/L (50-136); ANION GAP 7.9 (8-16); ASPARTATE AMINOTRANSFERASE 25 U/L (15-37); CARBON DIOXIDE 28.5 mmol/L (21-32); CHLORIDE 102 mmol/L (98-107); GLUCOSE 215 mg/dL (74-106); MAGNESIUM 1.9 mg/dL (1.8-2.4); PHOSPHORUS 1.8 mg/dL (2.5-4.9); POTASSIUM 4.4 mmol/L (3.5-5.1); SODIUM SERUM 134 mmol/L (136-145); TOTAL BILIRUBIN 0.6 mg/dL (0.0-1.0); TOTAL PROTEIN, SERUM 4.3 g/dL (6.4-8.2); UREA NITROGEN, BLOOD 21 mg/dL (7-18)
[2023-07-27 06:03] LABS: CREATININE 4.7 mg/dL (0.6-1.3)
[2023-07-27] MEDS: FOAM DRESSING TP SCH (09:00)
[2023-07-27] MEDS: SODIUM PHOSPHATE 15 MMOLE in NACL 0.9% 250 ML IV SCH (12:32)
[2023-07-27] MEDS: ALBUTEROL SULFATE/IPRATROPIU 3 ML SOL IH PRN (15:16)
[2023-07-27 16:30] LABS: BASOPHILS % (AUTO) 0.5 % (0.0-2.0); EOSINOPHILS # (AUTO) 0.1 K/uL (0-0.4); EOSINOPHILS % (AUTO) 1.2 % (0.0-4.0); HEMATOCRIT 20.3 % (36-48); LYMPHOCYTES # (AUTO) 0.6 K/uL (2.5-16.5); LYMPHOCYTES % (AUTO) 13.7 % (20.5-51.1); MEAN CORPUSCULAR HEMOGLOBIN 34 pg (27-31); MEAN CORPUSCULAR HGB CONC 33 g/dL (33-37); MEAN CORPUSCULAR VOLUME 102.7 fL (80-94); MONOCYTES # (AUTO) 0.5 K/uL (0.8-1.0); MONOCYTES % (AUTO) 11.9 % (1.7-9.3); NEUTROPHILS # (AUTO) 3.3 K/uL (1.8-7.7); NEUTROPHILS % (AUTO) 72.7 % (42.2-75.2); PLATELET COUNT (AUTO) 25 K/uL (140-450); RED BLOOD CELL COUNT(AUTO) 1.97 MIL/uL (4.20-5.40); RED CELL DISTRIBUTION WIDTH 22.2 % (11.6-13.7); WHITE BLOOD COUNT (AUTO) 4.5 K/uL (4.8-10.8)
[2023-07-27 16:41] LABS: HEMOGLOBIN 6.7 g/dL (12.0-16.0)
[2023-07-28] VITALS (17 sets, daily range): BP systolic 96–167; BP diastolic 34–90; PULSE 73–91; RESP 11–17; TEMP 96.1–98; O2SAT 100
[2023-07-28 06:46] LABS: ALANINE AMINOTRANSFERASE 17 U/L (12-78); ALBUMIN 0.9 g/dL (3.4-5.0); ALKALINE PHOSPHATASE 87 U/L (50-136); ANION GAP 13.8 (8-16); ASPARTATE AMINOTRANSFERASE 24 U/L (15-37); CALCIUM 7.1 mg/dL (8.5-10.1); CARBON DIOXIDE 22.8 mmol/L (21-32); CHLORIDE 101 mmol/L (98-107); GLUCOSE 148 mg/dL (74-106); MAGNESIUM 1.8 mg/dL (1.8-2.4); PHOSPHORUS 3.1 mg/dL (2.5-4.9); POTASSIUM 4.6 mmol/L (3.5-5.1); SODIUM SERUM 133 mmol/L (136-145); TOTAL BILIRUBIN 0.6 mg/dL (0.0-1.0); TOTAL PROTEIN, SERUM 4.3 g/dL (6.4-8.2); UREA NITROGEN, BLOOD 23 mg/dL (7-18)
[2023-07-28 06:48] LABS: CREATININE 4.9 mg/dL (0.6-1.3)
[2023-07-28] MEDS: DOCUSATE 100 MG/10 ML UDC GT SCH (09:02)
[2023-07-28] MEDS: MIDODRINE 5 MG TAB PO SCH (13:56)
[2023-07-28 14:07] LABS: BASOPHILS % (AUTO) 0.2 % (0.0-2.0); EOSINOPHILS # (AUTO) 0.1 K/uL (0-0.4); EOSINOPHILS % (AUTO) 2.1 % (0.0-4.0); LYMPHOCYTES # (AUTO) 0.3 K/uL (2.5-16.5); LYMPHOCYTES % (AUTO) 8.6 % (20.5-51.1); MEAN CORPUSCULAR HEMOGLOBIN 34 pg (27-31); MEAN CORPUSCULAR HGB CONC 32 g/dL (33-37); MEAN CORPUSCULAR VOLUME 104.3 fL (80-94); MONOCYTES # (AUTO) 0.4 K/uL (0.8-1.0); MONOCYTES % (AUTO) 12.4 % (1.7-9.3); NEUTROPHILS # (AUTO) 2.7 K/uL (1.8-7.7); NEUTROPHILS % (AUTO) 76.7 % (42.2-75.2); PLATELET COUNT (AUTO) 29 K/uL (140-450); RED BLOOD CELL COUNT(AUTO) 1.87 MIL/uL (4.20-5.40); RED CELL DISTRIBUTION WIDTH 20.5 % (11.6-13.7); WHITE BLOOD COUNT (AUTO) 3.5 K/uL (4.8-10.8)
[2023-07-28 14:21] LABS: HEMATOCRIT 19.5 % (36-48); HEMOGLOBIN 6.3 g/dL (12.0-16.0)
[2023-07-28 15:07] LABS: HEPATITIS A ANTIBODY TOTAL Negative (Negative)
[2023-07-29] VITALS (14 sets, daily range): BP systolic 114–155; BP diastolic 50–93; PULSE 85–104; RESP 10–16; TEMP 97.2–98.6; O2SAT 98–100
[2023-07-29 05:55] LABS: BASOPHILS % (AUTO) 0.2 % (0.0-2.0); EOSINOPHILS # (AUTO) 0.1 K/uL (0-0.4); EOSINOPHILS % (AUTO) 1.8 % (0.0-4.0); HEMATOCRIT 20.4 % (36-48); LYMPHOCYTES # (AUTO) 0.6 K/uL (2.5-16.5); LYMPHOCYTES % (AUTO) 12.5 % (20.5-51.1); MEAN CORPUSCULAR HEMOGLOBIN 34 pg (27-31); MEAN CORPUSCULAR HGB CONC 33 g/dL (33-37); MEAN CORPUSCULAR VOLUME 104.4 fL (80-94); MONOCYTES # (AUTO) 0.6 K/uL (0.8-1.0); MONOCYTES % (AUTO) 12.3 % (1.7-9.3); NEUTROPHILS # (AUTO) 3.6 K/uL (1.8-7.7); NEUTROPHILS % (AUTO) 73.2 % (42.2-75.2); PLATELET COUNT (AUTO) 22 K/uL (140-450); RED BLOOD CELL COUNT(AUTO) 1.95 MIL/uL (4.20-5.40); RED CELL DISTRIBUTION WIDTH 20.9 % (11.6-13.7); WHITE BLOOD COUNT (AUTO) 4.9 K/uL (4.8-10.8)
[2023-07-29 05:59] LABS: HEMOGLOBIN 6.7 g/dL (12.0-16.0)
[2023-07-29 06:29] LABS: ALANINE AMINOTRANSFERASE 19 U/L (12-78); ALBUMIN 0.9 g/dL (3.4-5.0); ALKALINE PHOSPHATASE 94 U/L (50-136); ANION GAP 11.8 (8-16); ASPARTATE AMINOTRANSFERASE 31 U/L (15-37); CARBON DIOXIDE 25.3 mmol/L (21-32); CHLORIDE 101 mmol/L (98-107); CREATININE 3.6 mg/dL (0.6-1.3); GLUCOSE 116 mg/dL (74-106); MAGNESIUM 1.7 mg/dL (1.8-2.4); PHOSPHORUS 2.5 mg/dL (2.5-4.9); POTASSIUM 4.1 mmol/L (3.5-5.1); SODIUM SERUM 134 mmol/L (136-145); TOTAL BILIRUBIN 0.5 mg/dL (0.0-1.0); TOTAL PROTEIN, SERUM 4.7 g/dL (6.4-8.2); UREA NITROGEN, BLOOD 17 mg/dL (7-18)
[2023-07-29] MEDS ORDERED: MIDODRINE 5 MG TAB PO PRN (13:30)
[2023-07-30] VITALS (10 sets, daily range): BP systolic 106–141; BP diastolic 55–69; PULSE 94–104; RESP 10–20; TEMP 97.8–98.6; O2SAT 96–100
[2023-07-30 05:47] LABS: BASOPHILS % (AUTO) 0.2 % (0.0-2.0); EOSINOPHILS # (AUTO) 0.1 K/uL (0-0.4); EOSINOPHILS % (AUTO) 1.4 % (0.0-4.0); LYMPHOCYTES # (AUTO) 0.8 K/uL (2.5-16.5); LYMPHOCYTES % (AUTO) 13.1 % (20.5-51.1); MEAN CORPUSCULAR HEMOGLOBIN 34 pg (27-31); MEAN CORPUSCULAR HGB CONC 32 g/dL (33-37); MEAN CORPUSCULAR VOLUME 106.6 fL (80-94); MONOCYTES # (AUTO) 0.7 K/uL (0.8-1.0); MONOCYTES % (AUTO) 11.5 % (1.7-9.3); NEUTROPHILS # (AUTO) 4.4 K/uL (1.8-7.7); NEUTROPHILS % (AUTO) 73.8 % (42.2-75.2); PLATELET COUNT (AUTO) 49 K/uL (140-450); RED CELL DISTRIBUTION WIDTH 21.7 % (11.6-13.7)
[2023-07-30 06:07] LABS: HEMATOCRIT 19.2 % (36-48); HEMOGLOBIN 6.2 g/dL (12.0-16.0)
[2023-07-30 06:22] LABS: ALANINE AMINOTRANSFERASE 19 U/L (12-78); ALBUMIN 0.8 g/dL (3.4-5.0); ALKALINE PHOSPHATASE 164 U/L (50-136); ANION GAP 11.7 (8-16); ASPARTATE AMINOTRANSFERASE 32 U/L (15-37); CALCIUM 6.9 mg/dL (8.5-10.1); CARBON DIOXIDE 24.6 mmol/L (21-32); CHLORIDE 102 mmol/L (98-107); GLUCOSE 181 mg/dL (74-106); MAGNESIUM 2.1 mg/dL (1.8-2.4); PHOSPHORUS 1.5 mg/dL (2.5-4.9); POTASSIUM 3.3 mmol/L (3.5-5.1); SODIUM SERUM 135 mmol/L (136-145); TOTAL BILIRUBIN 0.4 mg/dL (0.0-1.0); TOTAL PROTEIN, SERUM 4.5 g/dL (6.4-8.2); UREA NITROGEN, BLOOD 21 mg/dL (7-18)
[2023-07-30 06:45] LABS: CREATININE 4.3 mg/dL (0.6-1.3)
[2023-07-30] MEDS ORDERED: EPOETIN ALFA-EPBX 10,000 UNITS/ML VIAL IV SCH (09:00)
[2023-07-30] MEDS: CRUSHER, PILL MC ONE (09:33)
[2023-07-30] MEDS: EPOETIN ALFA 4,000 UNITS/ML VIAL IV SCH (10:44)
[2023-07-30] MEDS: KCL 20 MEQ IN 100 mL PREMIX 200 ML IV PRN (10:46)
[2023-07-30] MEDS ORDERED: METOCLOPRAMIDE 10 MG TAB NG SCH (11:30)
[2023-07-30] MEDS ORDERED: NON ADHERENT DRESSING TP PRN (12:25)
[2023-07-30] MEDS ORDERED: HYDRAGUARD CREAM TP PRN (12:25)
[2023-07-30] MEDS: METOCLOPRAMIDE 10 MG/10 ML SYRP UDC NG SCH (13:29)
[2023-07-30] MEDS: HYDRAGUARD CREAM TP SCH (13:30)
[2023-07-30] MEDS: NON ADHERENT DRESSING TP SCH (13:30)
[2023-07-31] VITALS (10 sets, daily range): BP systolic 109–141; BP diastolic 40–96; PULSE 70–113; RESP 16–20; TEMP 97.8–99; O2SAT 98–100
[2023-07-31 06:48] LABS: BASOPHILS % (AUTO) 0.4 % (0.0-2.0); EOSINOPHILS # (AUTO) 0.1 K/uL (0-0.4); EOSINOPHILS % (AUTO) 1.4 % (0.0-4.0); HEMATOCRIT 22.8 % (36-48); HEMOGLOBIN 7.6 g/dL (12.0-16.0); LYMPHOCYTES # (AUTO) 0.7 K/uL (2.5-16.5); LYMPHOCYTES % (AUTO) 12.1 % (20.5-51.1); MEAN CORPUSCULAR HEMOGLOBIN 35 pg (27-31); MEAN CORPUSCULAR HGB CONC 33 g/dL (33-37); MEAN CORPUSCULAR VOLUME 106.1 fL (80-94); MONOCYTES # (AUTO) 0.5 K/uL (0.8-1.0); MONOCYTES % (AUTO) 7.8 % (1.7-9.3); NEUTROPHILS # (AUTO) 4.7 K/uL (1.8-7.7); NEUTROPHILS % (AUTO) 78.3 % (42.2-75.2); PLATELET COUNT (AUTO) 32 K/uL (140-450); RED BLOOD CELL COUNT(AUTO) 2.15 MIL/uL (4.20-5.40); RED CELL DISTRIBUTION WIDTH 22.1 % (11.6-13.7)
[2023-07-31 07:12] LABS: ALANINE AMINOTRANSFERASE 19 U/L (12-78); ALKALINE PHOSPHATASE 217 U/L (50-136); ANION GAP 12.1 (8-16); ASPARTATE AMINOTRANSFERASE 29 U/L (15-37); CALCIUM 7.1 mg/dL (8.5-10.1); CARBON DIOXIDE 23.1 mmol/L (21-32); CHLORIDE 103 mmol/L (98-107); CREATININE 3.7 mg/dL (0.6-1.3); GLUCOSE 275 mg/dL (74-106); POTASSIUM 4.2 mmol/L (3.5-5.1); SODIUM SERUM 134 mmol/L (136-145); TOTAL BILIRUBIN 0.5 mg/dL (0.0-1.0); UREA NITROGEN, BLOOD 21 mg/dL (7-18)
[2023-07-31 07:18] LABS: PHOSPHORUS 1.1 mg/dL (2.5-4.9)
[2023-07-31] MEDS ORDERED: COMMUNICATION ORDER MC PRN (09:30)
[2023-07-31] MEDS: CYANOCOBALAMIN 100 MCG TAB PO PRN (10:08)
[2023-07-31] MEDS: SODIUM PHOSPHATE 15 MMOLE in NACL 0.9% 250 ML IV SCH ×2 (10:31→18:06)
[2023-08-01] VITALS (10 sets, daily range): BP systolic 143–154; BP diastolic 77–89; PULSE 11–114; RESP 18–20; TEMP 97.2–98.6; O2SAT 99–100
[2023-08-01 17:05] LABS: BASOPHILS # (AUTO) 0.1 K/uL (0.00-0.22); BASOPHILS % (AUTO) 0.8 % (0.0-2.0); EOSINOPHILS # (AUTO) 0.1 K/uL (0-0.4); EOSINOPHILS % (AUTO) 1.2 % (0.0-4.0); HEMATOCRIT 20.8 % (36-48); LYMPHOCYTES # (AUTO) 0.8 K/uL (2.5-16.5); MEAN CORPUSCULAR HEMOGLOBIN 35 pg (27-31); MEAN CORPUSCULAR HGB CONC 33 g/dL (33-37); MEAN CORPUSCULAR VOLUME 108.4 fL (80-94); MONOCYTES # (AUTO) 0.5 K/uL (0.8-1.0); MONOCYTES % (AUTO) 6.7 % (1.7-9.3); NEUTROPHILS # (AUTO) 6.4 K/uL (1.8-7.7); NEUTROPHILS % (AUTO) 81.3 % (42.2-75.2); PLATELET COUNT (AUTO) 51 K/uL (140-450); RED BLOOD CELL COUNT(AUTO) 1.92 MIL/uL (4.20-5.40); WHITE BLOOD COUNT (AUTO) 7.9 K/uL (4.8-10.8)
[2023-08-01 17:22] LABS: HEMOGLOBIN 6.8 g/dL (12.0-16.0)
[2023-08-02] VITALS (8 sets, daily range): BP systolic 111–142; BP diastolic 66–75; PULSE 96–152; RESP 16–21; TEMP 97.4–98.7; O2SAT 96–100
[2023-08-02 08:02] LABS: RED BLOOD CELL COUNT(AUTO) 1.95 MIL/uL (4.20-5.40); WHITE BLOOD COUNT (AUTO) 8.7 K/uL (4.8-10.8)
[2023-08-02 08:06] LABS: HEMOGLOBIN 6.8 g/dL (12.0-16.0); LYMPHOCYTES % (AUTO) 8.2 % (20.5-51.1); MEAN CORPUSCULAR HEMOGLOBIN 35 pg (27-31); MEAN CORPUSCULAR HGB CONC 32 g/dL (33-37); MEAN CORPUSCULAR VOLUME 107.7 fL (80-94); NEUTROPHILS % (AUTO) 82.3 % (42.2-75.2); PLATELET COUNT (AUTO) 66 K/uL (140-450); RED CELL DISTRIBUTION WIDTH 22.1 % (11.6-13.7)
[2023-08-02 08:07] LABS: BASOPHILS # (AUTO) 0.1 K/uL (0.00-0.22); BASOPHILS % (AUTO) 1.3 % (0.0-2.0); EOSINOPHILS # (AUTO) 0.2 K/uL (0-0.4); EOSINOPHILS % (AUTO) 1.8 % (0.0-4.0); LYMPHOCYTES # (AUTO) 0.7 K/uL (2.5-16.5); MONOCYTES # (AUTO) 0.6 K/uL (0.8-1.0); MONOCYTES % (AUTO) 6.4 % (1.7-9.3); NEUTROPHILS # (AUTO) 7.1 K/uL (1.8-7.7)
[2023-08-02 08:53] LABS: ANION GAP 14.2 (8-16); CALCIUM 6.8 mg/dL (8.5-10.1); CHLORIDE 103 mmol/L (98-107); GLUCOSE 167 mg/dL (74-106); POTASSIUM 4.2 mmol/L (3.5-5.1); SODIUM SERUM 135 mmol/L (136-145)
[2023-08-02 08:54] LABS: ALKALINE PHOSPHATASE 148 U/L (50-136); ASPARTATE AMINOTRANSFERASE 28 U/L (15-37); TOTAL BILIRUBIN 0.4 mg/dL (0.0-1.0); UREA NITROGEN, BLOOD 32 mg/dL (7-18)
[2023-08-02 08:55] LABS: ALANINE AMINOTRANSFERASE 18 U/L (12-78); ALBUMIN 0.8 g/dL (3.4-5.0); TOTAL PROTEIN, SERUM 4.6 g/dL (6.4-8.2)
[2023-08-02 08:57] LABS: CREATININE 4.4 mg/dL (0.6-1.3)
[2023-08-02] MEDS: NACL 0.9% 1,000 ML IV ONE (12:45)
[2023-08-02] MEDS: METOPROLOL 25 MG TAB PO ONE (14:08)
[2023-08-02] MEDS: METOPROLOL 25 MG TAB PO SCH (21:43)
[2023-08-03] VITALS (11 sets, daily range): BP systolic 137–146; BP diastolic 71–79; PULSE 94–113; RESP 16–20; TEMP 97–97.6; O2SAT 10–100
[2023-08-03] MEDS ORDERED: ALBUMIN HUMAN 25% 100 ML IV SCH (08:45)
[2023-08-03] MEDS: MIDODRINE 5 MG TAB PO SCH (19:00)
[2023-08-03] MEDS: METOPROLOL 50 MG TAB PO SCH (20:06)
[2023-08-04] VITALS (11 sets, daily range): BP systolic 123–167; BP diastolic 60–81; PULSE 85–101; RESP 18–21; TEMP 97–98.6; O2SAT 90–100
[2023-08-04 07:05] LABS: BASOPHILS % (AUTO) 0.8 % (0.0-2.0); EOSINOPHILS # (AUTO) 0.2 K/uL (0-0.4); EOSINOPHILS % (AUTO) 3.6 % (0.0-4.0); LYMPHOCYTES # (AUTO) 0.5 K/uL (2.5-16.5); LYMPHOCYTES % (AUTO) 9.2 % (20.5-51.1); MEAN CORPUSCULAR HEMOGLOBIN 35 pg (27-31); MEAN CORPUSCULAR HGB CONC 32 g/dL (33-37); MEAN CORPUSCULAR VOLUME 108.5 fL (80-94); MONOCYTES # (AUTO) 0.4 K/uL (0.8-1.0); MONOCYTES % (AUTO) 6.4 % (1.7-9.3); NEUTROPHILS # (AUTO) 4.4 K/uL (1.8-7.7); PLATELET COUNT (AUTO) 115 K/uL (140-450); RED CELL DISTRIBUTION WIDTH 21.9 % (11.6-13.7); WHITE BLOOD COUNT (AUTO) 5.6 K/uL (4.8-10.8)
[2023-08-04 07:12] LABS: HEMATOCRIT 19.6 % (36-48); HEMOGLOBIN 6.3 g/dL (12.0-16.0)
[2023-08-04 07:26] LABS: ANION GAP 12.3 (8-16); CALCIUM 6.9 mg/dL (8.5-10.1); CHLORIDE 101 mmol/L (98-107); GLUCOSE 238 mg/dL (74-106); POTASSIUM 4.3 mmol/L (3.5-5.1); SODIUM SERUM 133 mmol/L (136-145); UREA NITROGEN, BLOOD 48 mg/dL (7-18)
[2023-08-04 07:31] LABS: MAGNESIUM 1.9 mg/dL (1.8-2.4); PHOSPHORUS 2.2 mg/dL (2.5-4.9)
[2023-08-04 08:01] LABS: CREATININE 4.8 mg/dL (0.6-1.3)
[2023-08-04] MEDS: EPOETIN ALFA 4,000 UNITS/ML VIAL IV SCH (09:18)
[2023-08-04] MEDS: MIDODRINE 5 MG TAB PO SCH (19:00)
[2023-08-05] VITALS (11 sets, daily range): BP systolic 105–124; BP diastolic 56–63; PULSE 83–106; RESP 16–21; TEMP 97.9–98.8; O2SAT 99–100
[2023-08-05] MEDS: Z-GUARD PASTE TP ONE (00:21)
[2023-08-05 06:52] LABS: MEAN CORPUSCULAR HEMOGLOBIN 34 pg (27-31); MEAN CORPUSCULAR HGB CONC 32 g/dL (33-37); MEAN CORPUSCULAR VOLUME 108.3 fL (80-94); PLATELET COUNT (AUTO) 87 K/uL (140-450); RED BLOOD CELL COUNT(AUTO) 1.75 MIL/uL (4.20-5.40); RED CELL DISTRIBUTION WIDTH 19.9 % (11.6-13.7); WHITE BLOOD COUNT (AUTO) 4.9 K/uL (4.8-10.8)
[2023-08-05 06:59] LABS: ANION GAP 8.8 (8-16); CALCIUM 6.9 mg/dL (8.5-10.1); CARBON DIOXIDE 26.4 mmol/L (21-32); CHLORIDE 102 mmol/L (98-107); GLUCOSE 193 mg/dL (74-106); POTASSIUM 4.2 mmol/L (3.5-5.1); SODIUM SERUM 133 mmol/L (136-145); UREA NITROGEN, BLOOD 44 mg/dL (7-18)
[2023-08-05 07:04] LABS: HEMATOCRIT 18.9 % (36-48)
[2023-08-05 07:21] LABS: CREATININE 4.3 mg/dL (0.6-1.3)
[2023-08-05 07:43] LABS: MAGNESIUM 1.8 mg/dL (1.8-2.4); PHOSPHORUS 2.7 mg/dL (2.5-4.9)
[2023-08-05 08:00] LABS: EOSINOPHILS % (MANUAL) 1 % (0-4); LYMPHOCYTES % (MANUAL) 11 % (20-46); METAMYELOCYTES % 1 % (0-0); MONOCYTES % (MANUAL) 6 % (5-12)
[2023-08-05 08:01] LABS: ANISOCYTOSIS 2+; HYPOCHROMASIA 3+; PLATELET ESTIMATE DECREASED; POLYCHROMASIA 1+; SPHEROCYTES 1+; TEAR DROP CELLS 1+
[2023-08-05] MEDS: fentaNYL citrate 0.05 MG/ML VIAL ONE (14:17)
[2023-08-05] MEDS: diphenhydrAMINE 50 MG/ML VIAL ONE (14:17)
[2023-08-05] MEDS: MIDAZOLAM 5 MG/5 ML VIAL ONE (14:17)
[2023-08-05] MEDS: MIDAZOLAM 5 MG/5 ML VIAL IV ONE (14:32)
[2023-08-05] MEDS: fentaNYL citrate 0.05 MG/ML VIAL IVP ONE (14:33)
[2023-08-05] MEDS: ALBUMIN HUMAN 25% 100 ML IV SCH (14:59)
[2023-08-05] MEDS: ceFAZolin 1,000 MG VIAL ONE (15:37)
[2023-08-06] VITALS (7 sets, daily range): BP systolic 117–134; BP diastolic 58–67; PULSE 78–100; RESP 18–19; TEMP 96.9–98; O2SAT 99–100
[2023-08-06 06:33] LABS: BASOPHILS # (AUTO) 0.1 K/uL (0.00-0.22); BASOPHILS % (AUTO) 0.9 % (0.0-2.0); EOSINOPHILS # (AUTO) 0.1 K/uL (0-0.4); EOSINOPHILS % (AUTO) 1.7 % (0.0-4.0); HEMATOCRIT 21.4 % (36-48); LYMPHOCYTES # (AUTO) 0.4 K/uL (2.5-16.5); LYMPHOCYTES % (AUTO) 7.5 % (20.5-51.1); MEAN CORPUSCULAR HEMOGLOBIN 34 pg (27-31); MEAN CORPUSCULAR HGB CONC 32 g/dL (33-37); MEAN CORPUSCULAR VOLUME 107.2 fL (80-94); MONOCYTES # (AUTO) 0.3 K/uL (0.8-1.0); MONOCYTES % (AUTO) 5.8 % (1.7-9.3); NEUTROPHILS % (AUTO) 84.1 % (42.2-75.2); PLATELET COUNT (AUTO) 183 K/uL (140-450)
[2023-08-06 06:36] LABS: HEMOGLOBIN 6.8 g/dL (12.0-16.0)
[2023-08-06 06:54] LABS: MAGNESIUM 1.9 mg/dL (1.8-2.4); PHOSPHORUS 3.3 mg/dL (2.5-4.9)
[2023-08-06 06:59] LABS: ANION GAP 14.1 (8-16); CALCIUM 7.2 mg/dL (8.5-10.1); CARBON DIOXIDE 22.4 mmol/L (21-32); CHLORIDE 100 mmol/L (98-107); GLUCOSE 257 mg/dL (74-106); POTASSIUM 4.5 mmol/L (3.5-5.1); SODIUM SERUM 132 mmol/L (136-145); UREA NITROGEN, BLOOD 48 mg/dL (7-18)
[2023-08-06 07:06] LABS: CREATININE 4.8 mg/dL (0.6-1.3)
[2023-08-06] MEDS ORDERED: PRO5 PO (13:03)
== END 2023-08-06 16:25 | DRG 441 ==
LOC: MED 11:53 → MMU 17:27 → MTU 18:10 → MIC 07-23 18:21 → MTU 07-30 12:00
PROC: 5A1D70Z Performance of Urinary Filtration, Intermittent, Less than 6 Hours Per Day (ICD-10-PCS; principal; 2023-07-21)
PROC: 5A1D70Z Performance of Urinary Filtration, Intermittent, Less than 6 Hours Per Day (ICD-10-PCS; 2023-07-22)
PROC: 02HV33Z Insertion of Infusion Device into Superior Vena Cava, Percutaneous Approach (ICD-10-PCS; 2023-07-23)
PROC: 5A1D70Z Performance of Urinary Filtration, Intermittent, Less than 6 Hours Per Day (ICD-10-PCS; 2023-07-25)
PROC: 5A1D70Z Performance of Urinary Filtration, Intermittent, Less than 6 Hours Per Day (ICD-10-PCS; 2023-07-28)
PROC: 5A1D70Z Performance of Urinary Filtration, Intermittent, Less than 6 Hours Per Day (ICD-10-PCS; 2023-07-30)
PROC: 5A1D70Z Performance of Urinary Filtration, Intermittent, Less than 6 Hours Per Day (ICD-10-PCS; 2023-08-01)
PROC: 5A1D70Z Performance of Urinary Filtration, Intermittent, Less than 6 Hours Per Day (ICD-10-PCS; 2023-08-02)
PROC: 5A1D70Z Performance of Urinary Filtration, Intermittent, Less than 6 Hours Per Day (ICD-10-PCS; 2023-08-04)
PROC: 0DJ08ZZ Inspection of Upper Intestinal Tract, Via Natural or Artificial Opening Endoscopic (ICD-10-PCS; 2023-08-05)
PROC: 0DH67UZ Insertion of Feeding Device into Stomach, Via Natural or Artificial Opening (ICD-10-PCS; 2023-08-05)
PROC: 5A1D70Z Performance of Urinary Filtration, Intermittent, Less than 6 Hours Per Day (ICD-10-PCS; 2023-08-06)
DX: K76.82 Hepatic encephalopathy (principal); E43 Unspecified severe protein-calorie malnutrition; J69.0 Pneumonitis due to inhalation of food and vomit; G93.41 Metabolic encephalopathy; N18.6 End stage renal disease; I50.43 Acute on chronic combined systolic (congestive) and diastolic (congestive) heart failure; N17.0 Acute kidney failure with tubular necrosis; J96.00 Acute respiratory failure, unspecified whether with hypoxia or hypercapnia; E87.1 Hypo-osmolality and hyponatremia; D68.9 Coagulation defect, unspecified; R18.8 Other ascites; I13.2 Hypertensive heart and chronic kidney disease with heart failure and with stage 5 chronic kidney disease, or end stage renal disease; D64.9 Anemia, unspecified; E11.22 Type 2 diabetes mellitus with diabetic chronic kidney disease; E87.6 Hypokalemia; E88.09 Other disorders of plasma-protein metabolism, not elsewhere classified; D69.6 Thrombocytopenia, unspecified; E03.9 Hypothyroidism, unspecified; K21.9 Gastro-esophageal reflux disease without esophagitis; I25.10 Atherosclerotic heart disease of native coronary artery without angina pectoris; K74.60 Unspecified cirrhosis of liver; E83.39 Other disorders of phosphorus metabolism; I48.0 Paroxysmal atrial fibrillation; B19.20 Unspecified viral hepatitis C without hepatic coma; Z99.2 Dependence on renal dialysis; Z79.899 Other long term (current) drug therapy; Z68.29 Body mass index [BMI] 29.0-29.9, adult; Z86.73 Personal history of transient ischemic attack (TIA), and cerebral infarction without residual deficits; K29.70 Gastritis, unspecified, without bleeding; R62.7 Adult failure to thrive
CPT/HCPCS: 36415; 36569; 70370; 71045; 71046; 76700; 80048; 80053; 80076; 82040; 82105; 82140; 82150; 82948; 83036; 83605; 83690; 83735; 83880; 84100; 84439; 84443; 84484; 85025; 85610; 85730; 86704; 86706; 86708; 86709; 86803; 86886; 86900; 86901; 86920; 87040; 87081; 87340; 87521; 90935; 92526; 93005; 94640; 96365; 96375; 97110; 97112; 97163-GP; 97530; 99285; C9113; J0456; J0690; J0696; J0885; J1200; J1644; J1815; J1956; J2250; J2270; J2405; J3010; J3475; J3480; J3490; J7030; J7060; J8597; Q0092; Q5106